=== PATIENT | male | born 1935 | race Caucasian/White ===

== ENCOUNTER → 2019-08-14 08:34 | Outpatient (BNVA) | payer MEDICARE, SELFPAY | PROVIDERS: Family Provider Family Medicine; PCP Family Medicine; Visit Provider Urology | DX: N39.0 Urinary tract infection, site not specified (principal); N40.1 Benign prostatic hyperplasia with lower urinary tract symptoms; N13.8 Other obstructive and reflux uropathy | CPT/HCPCS: 81001 ==

== ENCOUNTER 2020-01-23 08:05 | Outpatient (CLI) | payer MEDICARE, SELFPAY ==
--- NOTE | 2020-01-23 08:43 | XR_ITS ---
WS: [id number] Left hand, 2 views, 01/23/2020 Clinical Data: HAND PAIN, ARTHRITIS Comparison: None. Findings: No fractures or dislocations are seen. There is osteoarthritic change of the first MP joint, all the PIP and DIP joints. No periarticular demineralization is seen. 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
--- NOTE | 2020-01-23 08:43 | XR_ITS ---
WS: [id number] Right hand, 2 views, 01/23/2020 Clinical Data: HAND PAIN, ARTHRITIS Comparison: None. Findings: No fractures or dislocations are seen. Osteoarthritic change of the MP joints, PIP and DI P joints is seen. No bone destruction or erosion is noted. No periarticular demineralization is seen. XR/XR hand RT 2V [id number] Impression: Diffuse osteoarthritis of all the joints of the right hand.
== END 2020-01-23 08:06 | disposition home or self-care (01) ==
PROVIDERS: Family Provider Family Medicine; PCP Family Medicine; Visit Provider Family Medicine
DX: M79.641 Pain in right hand (principal); M19.042 Primary osteoarthritis, left hand; M19.041 Primary osteoarthritis, right hand
CPT/HCPCS: 73120

== ENCOUNTER → 2020-01-31 13:43 | Outpatient (BNVA) | payer MEDICARE, SELFPAY | PROVIDERS: Family Provider Family Medicine; PCP Family Medicine; Referring Provider Family Medicine; Visit Provider Specialist | DX: G56.03 Carpal tunnel syndrome, bilateral upper limbs (principal); G56.23 Lesion of ulnar nerve, bilateral upper limbs | CPT/HCPCS: 95910 ==

== ENCOUNTER → 2020-02-12 08:57 | Outpatient (BNVA) | payer MEDICARE, SELFPAY | PROVIDERS: Family Provider Family Medicine; PCP Family Medicine; Visit Provider Nurse Practitioner Family | DX: N40.1 Benign prostatic hyperplasia with lower urinary tract symptoms (principal); N13.8 Other obstructive and reflux uropathy; N39.0 Urinary tract infection, site not specified | CPT/HCPCS: 81001 ==

== ENCOUNTER 2020-04-02 13:36 | Inpatient (IN) | payer MEDICARE, SELFPAY ==
[2020-04-02 13:47] VITALS: BP 116/66; PULSE 80; RESP 16; TEMP 36.8; O2SAT 95; BMI 31.6
--- NOTE | 2020-04-02 15:24 | XRR_ITS ---
PROCEDURE INFORMATION: Exam: XR Chest, 1 View Exam date and time: 04/02/2020 3:44 PM Age: 84 years old Clinical indication: Cough and dyspnea; Additional info: Dyspnea/cough TECHNIQUE: Imaging protocol: XR of the chest Views: 1 view. COMPARISON: CR Chest 1 [place] [id number] 06/27/2018 3:49 PM FINDINGS: Lungs: There is chronic lung change. No consolidation. Pleural space: Unremarkable. No pleural effusion. No pneumothorax. Heart/Mediastinum: Unremarkable. No cardiomegaly. Bones/joints: Unremarkable. XR/XR chest 1V portable [id number] IMPRESSION: No acute findings.
--- NOTE | 2020-04-02 15:24 | ECG_ITS ---
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 Measurements Intervals [place] Rate: 76 P: 26 ND: 214 QRS: -21 QRSD: 97 T: -3 QT: 383 QTc: 431 Interpretive Statements SINUS RHYTHM WITH FIRST DEGREE AV BLOCK POSSIBLE ANTERIOR MYOCARDIAL INFARCTION , OF INDETERMINATE AGE [30 ms Q WAVE IN V3/V4, OR R < 0.2 mV IN V4] INFERIOR MYOCARDIAL INFARCTION , PROBABLY OLD [40+ ms Q WAVE AND/OR ST/T ABNORMALITY IN II/aVF] Compared to ECG 06/27/2018 21:53:31 First degree AV block now present Myocardial infarct finding now present Left-axis deviation no longer present T-wave abnormality no longer present Electronically Signed On 04-02-2020 18:33:47 CDT by Nohmey Corbett M.D. [id number]
--- NOTE | 2020-04-02 15:24 | US_ITS ---
WS: [id number] SCROTAL ULTRASOUND EXAMINATION CLINICAL INFORMATION: Swollen right testicle COMPARISON: FINDINGS: TESTES Heterogeneous striated echogenicity both testicles with increased vascularity RIGHT testicle compatib le with orchitis. Diffuse heterogeneous echotexture left testicle may be due to chronic orchitis with areas of infarct or possibly infiltrating neoplasm or lymphoma. Recommend interval follow-up after treatment. Enlarged edematous LEFT epididymis consistent with epididymitis. Recommend interval follow-up after t reatment. Right epididymis appears normal. Incidental 5 mm left tunica albuginea cyst Right testes size: 5.6 cm x 3.6 cm x 3.7 cm. Left testes size: 4.5 cm x 3.0 cm x 2.6 cm. EPIDIDYMIDES Normal in size and echotexture, without focal lesion. Color Doppler: Normal color Doppler flow pattern. Right epididymis size: 0.7 cm x cm x 1.1 cm. Left epididymitis size: 0.6 cm x cm x 1.0 cm. HYDROCELE Moderate right hydrocele with septations. VARICOCELE None. OTHER FINDINGS None. US/US scrotum [id number] IMPRESSION: 1. Diffuse heterogeneous echotexture both testicles with increased vascularity RIGHT testicle only. compatible with orchitis. Recommend interval follow-up af ter treatment to assess testicular echotexture 2. Diffuse prominent heterogeneous echotexture left testicle with normal vascu larity. Differential considerations include chronic orchitis with areas of infa rct versus infiltrating neoplasm or lymphoma. Recommend interval follow-up afte r treatment 3. Enlarged edematous LEFT epididymis compatible with epididymitis. 4. Moderate RIGHT hydrocele with septations. .
--- NOTE | 2020-04-02 15:48 | W.ED.WEAKNES ---
HPI - Weakness General: Chief complaint: Weakness Stated complaint: GENERAL WEAKNESS, SWOLLEN R TESTICLE Time Seen by Provider: 04/02/20 15:20 History of Present Illness: HPI Narrative: 84-year-old male comes in complaining of generalized weakness along with swollen right testicle. Last night he very weak he could not get out of bed he had a panic alarm he had his son came and helped him this morning when I came back he was in bed had not gotten out had lost control of his urine in bed. He is actually scheduled for carpal tunnel surgery in 2 days here at [facility] [place]. Son denies any fever sweats chills not had any cough or chest pain or abdominal pain his only complaint seems to be the testicular pain. MD Complaint: generalized weakness Onset (ago): day(s) Duration: constant Location: generalized Migration: none Severity: severe Quality: aching Relieving factors: none Exacerbating factors: none Associated symptoms: Reports confusion, decreased appetite, myalgias and nausea; Denies chest pain, chills, melena, diaphoresis, dysuria, easy bruising, fever(s), headache(s), rash, short of breath, syncope or vomiting Review of Systems Const: Denies: fever(s), chills or diaphoresis ENMT: Denies: throat pain, ear or mastoid pain, nasal discharge or nasal congestion Card: Denies: chest pain or syncope Resp: Denies: dyspnea, productive cough or non-productive cough GI: Reports: nausea; Denies: vomiting or melena : Denies: dysuria Skin/Breast: Denies: rash or pruritus Neuro: Reports: confusion; Denies: headache(s) Sagar/Lymph: Denies: easy bruising PFSH ED PFSH: Medical History Bilateral carpal tunnel syndrome BPH with obstruction/lower urinary tract symptoms Diabetes mellitus Essential tremor Hypertension PAD (peripheral artery disease) Recurrent UTI 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 Mother , IN HER 90'S Dementia ALZHEIMERS Social History Smoking and tobacco status: former smoker Alcohol intake: former Substance/Drug Use: never Lives independently: Yes Housing: House Marital status: / Current occupational status: retired Physical Exam Const: COMMON NORMALS: no acute distress GENERAL APPEARANCE: cooperative and comfortable ORIENTATION/CONSCIOUSNESS: Yes awake, Yes oriented to person, Yes oriented to place and Yes oriented to time HENMT: COMMON NORMALS: normocephalic, atraumatic and hearing grossly normal bilaterally HEAD & SCALP: normocephalic and atraumatic Eye: COMMON NORMALS: Equal, round and reactive pupils present, EOMs intact bilaterally, conjunctivae normal and no scleral icterus CONJUNCTIVA: Yes conjunctivae normal PUPIL: Yes Equal, round and reactive pupils present Neck/C-Spine: COMMON NORMALS: full ROM, no lymphadenopathy, supple and no JVD Lymph: LYMPHATIC: no lymphadenopathy noted and no lymphedema noted Resp: COMMON NORMALS: normal respiratory effort, No retractions, No use of accessory muscles and clear to auscultation bilaterally AUSCULTATION: clear to auscultation bilaterally Cardio: COMMON NORMALS: no JVD, regular rate, regular rhythm and No murmurs present (Cardio) RATE: regular rate RHYTHM: regular rhythm GI: COMMON NORMALS: Soft to palpation and No hepatosplenomegaly present AUSCULTATION: Yes normoactive bowel sounds PALPATION: Yes Soft to palpation, No Tenderness to palpation present (GI), No Guarding due to palpation present (GI) and Yes No hepatosplenomegaly present : SCROTUM: Yes Scrotal tenderness present, Yes erythematous, Yes scrotal swelling, No Scrotal lesions present and No scrotal mass Extremity: COMMON NORMALS: normal to inspection, capillary refill normal, no clubbing, cyanosis or edema, no calf tenderness and no pedal edema Neuro: SENSORIUM/ORIENTATION: Yes oriented to person, Yes oriented to place and Yes oriented to time Skin: COMMON NORMALS: no rashes or lesions noted GENERAL SKIN EXAM: no rashes or lesions noted Course Vital Signs: Vital signs: Vital Signs Temperature 98.2 F 04/06/20 11:29 Pulse Rate 75 04/06/20 11:29 Respiratory Rate 17 04/06/20 11:29 Blood Pressure 129/69 04/06/20 11:29 Pulse Oximetry 96 04/06/20 11:29 MDM - Weakness MDM Narrative: Medical decision making narrative: Discussed with Dr. Sandoval will admit for cellulitis of the scrotum, epididymitis and acute cystitis Dr. Woodson to consult Lab Data: Labs: Lab Results 04/02/20 04/02/20 04/02/20 Range/Units 16:02 16:02 16:02 WBC 16.8 H (4.0-10.0) 10^3/ uL RBC 4.71 (4.1-5.3) 10^6/u L Hgb 13.4 (11.7-16.6) g/dL Hct 41.8 L (42.0-52.0) % MCV 88.7 (80-94) fL MCH 28.5 (28.0-34.0) pg MCHC 32.1 (30.0-36.0) g/dL RDW 13.5 (12.1-15.1) % Plt Count 127 L (130-400) 10^3/c mm MPV 11.7 H (7.4-10.4) fL Neut % (Auto) 84.6 % Lymph % (Auto) 5.2 % Graves % (Auto) 9.3 % Eos % (Auto) 0.0 % Baso % (Auto) 0.4 % Neut # (Auto) 14.24 H (1.8-7.7) 10^3/u L Lymph # (Auto) 0.9 (0.8-4.8) 10^3/u L Graves # (Auto) 1.6 H (0.2-0.9) 10^3/u L Eos # (Auto) 0.0 (0.0-0.8) 10^3/u L Baso # (Auto) 0.1 (0.0-0.1) 10^3/u L Nucleated RBC % (a uto) 0 % Nucleated RBCs # 0.0 /100WBC Sodium 135 L (136-145) mmol/L Potassium 4.1 (3.5-5.1) mmol/L Chloride 97 L (98-107) mmol/L Carbon Dioxide 24 (22-29) mmol/L Anion Gap 18.1 (5-19) BUN 23 (8-23) mg/dL Creatinine 1.3 H (0.7-1.2) mg/dL GFR Calculation Not Reportable Glucose 220 H (65-115) mg/dL Estimat Average Gl ucose 146 Hemoglobin A1c 6.7 H (4.0-6.0) % Calculated Osmolal ity 290 (285-295) mOsm/k g Calcium 9.3 (8.5-10.5) mg/dL Total Bilirubin 1.4 H (0.15-1.2) mg/dL AST 25 (0-40) U/L ALT 18 (0-41) U/L Alkaline Phosphata se 78 (40-130) IU/L Creatine Kinase 84 (39-308) U/L Total Protein 7.1 (6.6-8.7) g/dL Albumin 3.8 (3.5-5.2) g/dL Globulin 3.3 (1.3-4.6) g/dL Urine Color (Yellow) Urine Appearance (CLEAR) Urine pH (5-7) Ur Specific Gravit y (1.005-1.030) Urine Protein (Negative) Urine Glucose (UA) (Normal) Urine Ketones (Negative) Urine Blood (Negative) Urine Nitrate (Negative) Urine Bilirubin (Negative) Urine Urobilinogen (Negative) mg/dL Ur Leukocyte Christin ase (Negative) Urine RBC (0-2) /hpf Urine WBC (0-5) /hpf Ur Squamous Epith Cells (0-5) /hpf Amorphous Sediment Urine Bacteria (NONE) /hpf 04/02/20 04/03/20 04/03/20 Range/Units 17:39 04:57 04:57 WBC 12.4 H (4.0-10.0) 10^3/ uL RBC 4.35 (4.1-5.3) 10^6/u L Hgb 12.4 (11.7-16.6) g/dL Hct 39.2 L (42.0-52.0) % MCV 90.1 (80-94) fL MCH 28.5 (28.0-34.0) pg MCHC 31.6 (30.0-36.0) g/dL RDW 14.0 (12.1-15.1) % Plt Count 109 L (130-400) 10^3/c mm MPV 12.9 H (7.4-10.4) fL Neut % (Auto) 81.5 % Lymph % (Auto) 7.6 % Graves % (Auto) 10.0 % Eos % (Auto) 0.2 % Baso % (Auto) 0.3 % Neut # (Auto) 10.12 H (1.8-7.7) 10^3/u L Lymph # (Auto) 1.0 (0.8-4.8) 10^3/u L Graves # (Auto) 1.2 H (0.2-0.9) 10^3/u L Eos # (Auto) 0.0 (0.0-0.8) 10^3/u L Baso # (Auto) 0.0 (0.0-0.1) 10^3/u L Nucleated RBC % (a uto) 0 % Nucleated RBCs # 0.0 /100WBC Sodium 137 (136-145) mmol/L Potassium 4.2 (3.5-5.1) mmol/L Chloride 100 (98-107) mmol/L Carbon Dioxide 27 (22-29) mmol/L Anion Gap 14.2 (5-19) BUN 33 H (8-23) mg/dL Creatinine 1.2 (0.7-1.2) mg/dL GFR Calculation Not Reportable Glucose 138 H (65-115) mg/dL Estimat Average Gl ucose Hemoglobin A1c (4.0-6.0) % Calculated Osmolal ity 293 (285-295) mOsm/k g Calcium 8.5 (8.5-10.5) mg/dL Total Bilirubin (0.15-1.2) mg/dL AST (0-40) U/L ALT (0-41) U/L Alkaline Phosphata se (40-130) IU/L Creatine Kinase (39-308) U/L Total Protein (6.6-8.7) g/dL Albumin (3.5-5.2) g/dL Globulin (1.3-4.6) g/dL Urine Color Yellow (Yellow) Urine Appearance Sl hazy (CLEAR) Urine pH 5 (5-7) Ur Specific Gravit y 1.015 (1.005-1.030) Urine Protein 2+ H (Negative) Urine Glucose (UA) Norm (Normal) Urine Ketones 1+ H (Negative) Urine Blood Neg (Negative) Urine Nitrate Negative (Negative) Urine Bilirubin Neg (Negative) Urine Urobilinogen Norm (Negative) mg/dL Ur Leukocyte Christin ase Negative (Negative) Urine RBC 0-4 H (0-2) /hpf Urine WBC 15-25 H (0-5) /hpf Ur Squamous Epith Cells 0-4 H (0-5) /hpf Amorphous Sediment Not Reportable Urine Bacteria 4+ H (NONE) /hpf Discharge Plan Discharge Patient Disposition: Admitted As Inpatient Admit Provider: Edwin Sandoval Clinical Impression: Cellulitis of scrotum, Acute epididymitis, Cystitis Condition: Stable Referrals: Carlos Marques MD [Primary Care Provider] - Discharge Date/Time: 04/02/20 20:39 Coding Level of Care Code 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
[2020-04-02 16:07] LABS: Basophils # 0.1 10^3/uL (0.0-0.1); Basophils % 0.4 %; Hematocrit 41.8 % (42.0-52.0); Hemoglobin 13.4 g/dL (11.7-16.6); Lymphocytes # 0.9 10^3/uL (0.8-4.8); Lymphocytes % 5.2 %; Mean Corpuscular HGB Conc 32.1 g/dL (30.0-36.0); Mean Corpuscular Hemoglobin 28.5 pg (28.0-34.0); Mean Corpuscular Volume 88.7 fL (80-94); Mean Platelet Volume 11.7 fL (7.4-10.4); Monocytes # 1.6 10^3/uL (0.2-0.9); Monocytes % 9.3 %; Neutrophils # 14.24 10^3/uL (1.8-7.7); Neutrophils % 84.6 %; Nucleated Red Blood Cells % 0 %; Platelet Count 127 10^3/cmm (130-400); Red Blood Count 4.71 10^6/uL (4.1-5.3); Red Cell Distribution Width 13.5 % (12.1-15.1); White Blood Count 16.8 10^3/uL (4.0-10.0)
[2020-04-02 16:32] LABS: Alanine Aminotransferase 18 U/L (0-41); Albumin Level 3.8 g/dL (3.5-5.2); Alkaline Phosphatase 78 IU/L (40-130); Anion Gap 18.1 (5-19); Aspartate Amino Transferase 25 U/L (0-40); Blood Urea Nitrogen 23 mg/dL (8-23); Calcium 9.3 mg/dL (8.5-10.5); Carbon Dioxide 24 mmol/L (22-29); Chloride 97 mmol/L (98-107); Creatine Phosphokinase 84 U/L (39-308); Globulin 3.3 g/dL (1.3-4.6); Glucose 220 mg/dL (65-115); Osmolality Calculated 290 mOsm/kg (285-295); Potassium 4.1 mmol/L (3.5-5.1); Sodium 135 mmol/L (136-145); Total Bilirubin 1.4 mg/dL (0.15-1.2); Total Protein 7.1 g/dL (6.6-8.7)
[2020-04-02] MEDS: cefTRIAXone 1,000 MG in sodium chloride 0.9% (plus) 50 ML 100 MG IV (17:23)
[2020-04-02 18:01] LABS: Add Urine Microscopic? YES; Bilirubin Urine Neg (Negative); Blood Urine Neg (Negative); Glucose Urine UA Norm (Normal); Ketones Urine 1+ (Negative); Leukocyte Esterase Urine Negative (Negative); Nitrate Urine Negative (Negative); Protein Urine 2+ (Negative); Specific Gravity, Urine 1.015 (1.005-1.030); Urine Appearance SL Hazy (CLEAR); Urine Color Yellow (Yellow); Urobilinogen Urine Norm (Negative); pH Urine 5 (5-7)
[2020-04-02 18:06] LABS: Add Urine Culture? Yes; Bacteria Urine 4+ /hpf; RBC Urine 0-4 /hpf (0-2); Squamous Epithelial Cell Urine 0-4 /hpf (0-5); WBC Urine 15-25 /hpf (0-5)
[2020-04-02 19:37] VITALS: BP 145/88; PULSE 66; RESP 18; O2SAT 96
--- NOTE | 2020-04-02 19:47 | PM.HP ---
Providers/Chief Complaint Admitting Physician: Edwin Sandoval MD Primary Care Provider: Carlos Marques MD Chief Complaint: GENERAL WEAKNESS, SWOLLEN R TESTICLE History of Present Illness Arias Karimi is a 84 year old male who carries history of BPH, came in today for generalized weakness and a recent fall. Son is at the bedside who is stating that Mr. Karimi lives alone, he suffers from essential tremors, manages his daily activities on his own, he has been initiated on propanolol, follows up with Dr. Woodson for BPH, requires antibiotics not so long ago, he is not sure about the name of the antibiotic and the duration for which it was taken. Mr. Karimi has been feeling weak for last few days which has gotten worse today, he had no strength to get out of bed and do his daily activities independently, no fever, vomiting was noticed at home. Patient is endorsing constipation, swelling of his testicles, pain 6/10 which gets worse on palpation, he has not been experiencing, dysuria, urinary frequency, chills. He is denying flank pain, radiation of this pain towards his groin. Son is endorsing that a few days ago Mr. Karimi fell outside his home without any trauma, son is aware of high risk of falls because of essential tremors. No syncope or seizure-like activity was noticed. Diagnosis in the ER revealed normal hemodynamics, he is afebrile, leukocytosis, testicle ultrasound ruled out testicular torsion, findings consistent with hydrocele and epididymitis. He has been given ceftriaxone in the ER. At the time of my evaluation patient was experiencing essential tremors but was able to endorse above-mentioned details, negative meningeal signs, testicles tender to palpation, he was awake alert oriented x3 GCS 15, patient is denying strokelike symptoms, no facial asymmetry noticed Review of Systems Const: Reports: chills, body aches, fatigue and malaise; Denies: fever(s) Eyes: Denies: change in vision ENMT: Denies: throat pain Card: Denies: chest pain Resp: Denies: dyspnea GI: Reports: abdominal pain, constipation and bloating; Denies: nausea : Reports: testicular pain; Denies: flank pain, genital pain, genital lesions or penile discharge Musc: Reports: neck pain, limited range of motion, muscle cramps and muscle weakness Skin/Breast: Reports: new lesions Neuro: Reports: lack of coordination, frequent falls and other (Tremors) Psych: Reports: memory loss; Denies: anxiety Endo: Denies: polyuria Sagar/Lymph: Denies: easy bruising All/Imm: Denies: urticaria Medications/Allergies Home Medications Medication Instructions Recorded Confirmed Last Taken Type ascorbic acid (vitamin C) 500 mg 500 mg PO DAILY 08/14/19 04/02/20 04/02/20 History capsule aspirin 81 mg tablet,delayed 81 mg PO DAILY 08/14/19 04/02/20 04/02/20 History release clonazepam 0.5 mg tablet 0.5 mg PO TID 08/14/19 04/02/20 04/02/20 History glimepiride 4 mg tablet 4 mg PO DAILY 08/14/19 04/02/20 04/02/20 History propranolol 80 mg capsule,24 80 mg PO DAILY 08/14/19 04/02/20 04/02/20 History hr,extended release amlodipine 5 mg tablet 5 mg PO DAILY 30 Days #90 tab 08/24/19 04/02/20 Unknown Rx furosemide 20 mg tablet 20 mg PO DAILY PRN #30 tab 12/20/19 04/02/20 04/02/20 Rx potassium chloride 10 mEq 10 meq PO DAILY PRN #30 tab 12/20/19 04/02/20 04/02/20 Rx tablet,extended release methenamine hippurate 1 gram tablet 1 gm PO BID #60 tab 12/28/19 04/02/20 04/02/20 Rx Allergies Allergy/AdvReac Type Severity Reaction Status Date / Time hydrochlorothiazide Allergy UNKNOWN Verified 03/12/20 13:47 iodine Allergy UNKNOWN Verified 03/12/20 13:47 lisinopril Allergy UNKNOWN Verified 03/12/20 13:47 PFSH Acute PFSH: Medical History (Updated 04/02/20 @ 20:32 by Maris Kenyon MD) Bilateral carpal tunnel syndrome BPH with obstruction/lower urinary tract symptoms Essential tremor Hypertension PAD (peripheral artery disease) Recurrent UTI 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 Mother , IN HER 90'S Dementia ALZHEIMERS Social History (Updated 04/02/20 @ 20:33 by Maris Kenyon MD) Smoking and tobacco status: former smoker Alcohol intake: former Substance/Drug Use: never Lives independently: Yes Housing: House Marital status: / Current occupational status: retired Vitals/I&O/Wt Last Vital Signs Temp 98.3 F 04/02/20 13:47 Pulse 66 04/02/20 19:37 Resp 18 04/02/20 19:37 BP 145/88 04/02/20 19:37 Pulse Ox 96 04/02/20 19:37 04/02/20 04/02/20 04/02/20 06:59 14:59 22:59 Intake Total 50 / 50 Balance 50 / 50 Weight last 48 hrs Weight 108.862 kg Physical Exam Narrative: EXAM NARRATIVE: elderly male Lying comfortably in his bed Essential tremors noted S1, S2, systolic murmur right second intercostal space Meningeal signs negative, No facial asymmetry Facial flushing noticed Handgrip is weak bilaterally, carpal tunnel features Abdomen distended, bowel sound present, nontender Genital exam: Hyperemia of the testicles bilaterally, tender to palpation, no discharge noticed, nonpurulent hyperemia of scrotal wall, hydrocele No lower extremity edema gangrene or ulcer Lung auscultation, clear no adventitious sounds No neurological focal deficit Patient is awake alert oriented x3 GCS 15 Patient is complaining of neck pain, negative Kernig's sign Data : 04/02/20 16:02 04/02/20 16:02 A&P Assessment and plan (1) Acute epididymitis: Status: Acute Additional A&P Information Acute epididymitis Most likely due to history of recurrent UTI and BPH Would cover for E. coli with ceftriaxone for now, will need 10 to 14-day course of antibiotics on discharge No active sepsis I would keep him on normal saline just for tonight discontine in the morning Scrotal ultrasound rule out testicular torsion or varicocele Ultrasound reviewed Patient is afebrile Would recommend close follow-up with Dr. Woodson History of BPH I would avoid urethral instrumentation for now We will do bladder scan PRN and straight cath if needed Essential tremors: I would continue propanolol and Ativan for now Mild hyponatremia Monitor sodium level Hold diuretics for now NAOMI Patient clinically looks dehydrated, I have started him on normal saline maintenance rate Monitor BMP Monitor urine output Will obtain renal ultrasound to rule out hydronephrosis Hyperglycemia , Will check A1c level DNR/DNI discussed with the patient and his son Cardiac diet DVT prophylaxis Heparin Physical therapy evaluate Attestations Medical Necessity Statement*: I am anticipating patient will be discharged in less than 48 hours currently need antibiotics for epididymitis, he is not septic, need physical therapy evaluation in the morning Time Spent in Patient Care: (>than 50% of time spent in counselling and/or direct pt care on unit). 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
[2020-04-02 19:59] VITALS: BP 127/54; PULSE 72; RESP 18; O2SAT 96
[2020-04-02 21:16] LABS: Estmated Average Glucose 146; Hemoglobin A1C 6.7 % (4.0-6.0)
[2020-04-02] MEDS: heparin 5,000 unit/mL INJ 1 mL 5000 UNIT SUBCUT (21:42)
[2020-04-02] MEDS: sodium chloride 0.9% 1,000 ML 100 ML IV (21:42)
[2020-04-02] MEDS: CLONazepam 0.5 mg Tablet PO (21:42)
[2020-04-02] MEDS: ketorolac 30 mg/mL INJ 15 MG IVP (21:43)
[2020-04-02 22:30] VITALS: BP 120/66; PULSE 62; RESP 20; TEMP 37.4; O2SAT 93
[2020-04-03] VITALS: BP 111/54; PULSE 67; RESP 19; TEMP 36.7; O2SAT 93
[2020-04-03 04:00] VITALS: BP 114/60; PULSE 80; RESP 18; TEMP 37; O2SAT 94
[2020-04-03 05:40] LABS: Basophils % 0.3 %; Eosinophils % 0.2 %; Hematocrit 39.2 % (42.0-52.0); Hemoglobin 12.4 g/dL (11.7-16.6); Lymphocytes % 7.6 %; Mean Corpuscular HGB Conc 31.6 g/dL (30.0-36.0); Mean Corpuscular Hemoglobin 28.5 pg (28.0-34.0); Mean Corpuscular Volume 90.1 fL (80-94); Mean Platelet Volume 12.9 fL (7.4-10.4); Monocytes # 1.2 10^3/uL (0.2-0.9); Neutrophils # 10.12 10^3/uL (1.8-7.7); Neutrophils % 81.5 %; Nucleated Red Blood Cells % 0 %; Platelet Count 109 10^3/cmm (130-400); Red Blood Count 4.35 10^6/uL (4.1-5.3); White Blood Count 12.4 10^3/uL (4.0-10.0)
[2020-04-03] MEDS: heparin 5,000 unit/mL INJ 1 mL 5000 UNIT SUBCUT ×3 (05:53→20:24)
[2020-04-03 06:11] LABS: Blood Urea Nitrogen 33 mg/dL (8-23); Calcium 8.5 mg/dL (8.5-10.5); Carbon Dioxide 27 mmol/L (22-29); Chloride 100 mmol/L (98-107); Glucose 138 mg/dL (65-115); Osmolality Calculated 293 mOsm/kg (285-295); Sodium 137 mmol/L (136-145)
[2020-04-03 06:13] LABS: Anion Gap 14.2 (5-19); Potassium 4.2 mmol/L (3.5-5.1)
--- NOTE | 2020-04-03 07:13 | P.PN_ITS ---
Subjective Subjective: Interval history: Patient feeling a little bit better but still having a lot of pain in his testicles. He is shaking quite a bit this morning. He did not get his propranolol last night it appears. Patient has no fevers or chills though. No chest pain. No shortness of breath or cough. Still very weak. He does have physical therapy ordered. Vitals/I&O/Wt Last Vital Signs Temp 98.6 F 04/03/20 04:00 Pulse 80 04/03/20 04:00 Resp 18 04/03/20 04:00 BP 114/60 04/03/20 04:00 Pulse Ox 94 04/03/20 04:00 04/02/20 04/03/20 04/03/20 22:59 06:59 14:59 Intake Total 50 / 50 Balance 50 / 50 Weight last 48 hrs Weight 240 lb Physical Exam 2 Narrative: EXAM NARRATIVE: General: No acute distress, Alert. Well nourished. Heart: Regular rate and rhythm. No murmurs, rubs or gallops. Normal capillary refill. Lungs: Clear to auscultation. No wheezes, rhonchi or rales. Abdomen: Positive bowel sounds. Non-tender, non-distended. No hepatosplenomegaly. No gaurding. Extremities: No clubbing, cyanosis, or edema. Negative Luis Felipe's Testicles -his scrotum is diffusely red and tender to touch. Mild swelling noted. Data : 04/03/20 04:57 04/03/20 04:57 A&P Assessment and plan (1) Acute epididymitis: -Patient's white blood cell count is improved with Rocephin but his tenderness and symptoms does not seem to have improved much. We will go ahead and consult urology for further evaluation and treatment recommendations. Appreciate Dr. Pérez's consultation. Status: Acute (2) Cellulitis of scrotum: Status: Acute (3) Hypertension: Stable at this time. We will continue with his home blood pressure medications and monitor. Status: Acute (4) BPH with obstruction/lower urinary tract symptoms: Status: Acute (5) Diabetes mellitus: Overall blood sugars are doing okay. We will continue to monitor Accu- Cheks. Status: Acute (6) Essential tremor: His shaking is worse this morning. We will increase his propranolol back to twice a day Status: Acute Attestations Medical Necessity Statement*: This is an 84-year-old gentleman with infection in his testicles and scrotum requiring continued inpatient IV treatments and monitoring. 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 Fwd Diagnoses Acute epididymitis N45.1 Cellulitis of scrotum N49.2 Hypertension I10 BPH with obstruction/lower urinary tract symptoms N40.1; N13.8 Diabetes mellitus E11.9 Essential tremor G25.0
--- NOTE | 2020-04-03 07:30 | P.CONIM_ITS ---
Providers/Reason For Consult Consulting Physican/Specialty*: Urology/Woodson Reason for Consult*: Scrotal pain and swelling Attending Physician: Edwin Sandoval MD Primary Care Provider: Carlos Marques MD History of Present Illness History of Present Illness Arias Karimi is a 84 year old male well-known to me. Admitted through the emergency department last night with evidence of epididymoorchitis right greater than sign left. I reviewed the ultrasound. It shows findings consistent with that diagnosis and no evidence of scrotal abscess or Nelson's gangrene. Physical exam also consistent with epididymoorchitis. No evidence of crepitus of the skin. No evidence of intrascrotal abscess. Since admission and placement on IV antibiotics (Rocephin) he has noted improvement in symptoms and decrease in swelling. Agree with current treatment plan. Culture is pending. Adjust antibiotics per culture results. Have also recommended elevation of the scrotum on 2 towels to help reduce swelling. Review of Systems Const: Reports: fever(s) and malaise Card: Denies: chest pain or palpitations Resp: Denies: dyspnea, productive cough or wheezing GI: Reports: abdominal pain; Denies: nausea, vomiting or diarrhea : Reports: testicular pain and scrotal swelling; Denies: change in urine stream Neuro: Reports: other (Increased Parkinson type tremors) Psych: Reports: anxiety Endo: Denies: hot flashes Sagar/Lymph: Denies: easy bruising or easy bleeding All/Imm: Denies: acute wheezing Meds/Allergies Home Medications and Allergies Home Medications Medication Instructions Recorded Confirmed Last Taken Type ascorbic acid (vitamin C) 500 mg 500 mg PO DAILY 08/14/19 04/02/20 04/02/20 History capsule aspirin 81 mg tablet,delayed 81 mg PO DAILY 08/14/19 04/02/20 04/02/20 History release clonazepam 0.5 mg tablet 0.5 mg PO TID 08/14/19 04/02/20 04/02/20 History glimepiride 4 mg tablet 4 mg PO DAILY 08/14/19 04/02/20 04/02/20 History propranolol 80 mg capsule,24 80 mg PO DAILY 08/14/19 04/02/20 04/02/20 History hr,extended release amlodipine 5 mg tablet 5 mg PO DAILY 30 Days #90 tab 08/24/19 04/02/20 Unknown Rx furosemide 20 mg tablet 20 mg PO DAILY PRN #30 tab 12/20/19 04/02/20 04/02/20 Rx potassium chloride 10 mEq 10 meq PO DAILY PRN #30 tab 12/20/19 04/02/20 04/02/20 Rx tablet,extended release methenamine hippurate 1 gram tablet 1 gm PO BID #60 tab 12/28/19 04/02/20 04/02/20 Rx Allergies Allergy/AdvReac Type Severity Reaction Status Date / Time hydrochlorothiazide Allergy UNKNOWN Verified 03/12/20 13:47 iodine Allergy UNKNOWN Verified 03/12/20 13:47 lisinopril Allergy UNKNOWN Verified 03/12/20 13:47 Current Medications Current Medications Generic Name Dose Route Start Last Admin Trade Name Freq PRN Reason Stop Dose Admin Clonazepam 0.5 mg 04/02/20 21:00 04/02/20 21:42 Klonopin PO 0.5 mg TID SHERYL Administration Heparin Sodium (Beef Lung) 5,000 unit 04/02/20 20:49 04/03/20 05:53 Heparin SUBCUT 5,000 unit Q8H SHERYL Administration Sodium Chloride 1,000 mls @ 100 mls/hr 04/02/20 20:49 04/02/20 21:42 Sodium Chloride 0.9% IV 100 mls/hr .Q10H SHERYL Administration PFSH Acute PFSH: Medical History Bilateral carpal tunnel syndrome BPH with obstruction/lower urinary tract symptoms Diabetes mellitus Essential tremor Hypertension PAD (peripheral artery disease) Recurrent UTI 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 Mother , IN HER 90'S Dementia ALZHEIMERS Social History Smoking and tobacco status: former smoker Alcohol intake: former Substance/Drug Use: never Lives independently: Yes Housing: House Marital status: / Current occupational status: retired Vitals/I&O/Wt Last Vital Signs Temp 98.6 F 04/03/20 04:00 Pulse 80 04/03/20 04:00 Resp 18 04/03/20 04:00 BP 114/60 04/03/20 04:00 Pulse Ox 94 04/03/20 04:00 04/02/20 04/03/20 04/03/20 22:59 06:59 14:59 Intake Total 50 / 50 Output Total 350 / 350 Balance 50 / 50 -350 / -350 Weight last 48 hrs Weight 240 lb Physical Exam Const: COMMON NORMALS: no acute distress, alert and well nourished GENERAL APPEARANCE: well kempt and well developed HENMT: COMMON NORMALS: normocephalic and atraumatic HEAD & SCALP: normocephalic and atraumatic Neck/C-Spine: COMMON NORMALS: full ROM GENERAL: Yes normal visual inspection Resp: COMMON NORMALS: normal respiratory effort EFFORT & INSPECTION: No labored and No Actively coughing : OTHER: Uncircumcised phallus. Scrotum is erythematous with mild swelling of the skin but not severe. No evidence of crepitus or other skin changes. Left intrascrotal contents appear to be more benign and feeling. The right side appears to be consistent with epididymoorchitis with induration of the testicle and the epididymis on the right side extending into the distal spermatic cord. No evidence of an abscess. Neuro: SENSORIUM/ORIENTATION: Yes alert Psych: COMMON NORMALS: mental status grossly normal APPEARANCE: Yes grossly normal and Yes well kempt ATTITUDE: Yes calm and Yes engaged A&P Assessment and plan (1) Epididymo-orchitis: Antibiotics Elevation Serial labs No indication for surgical intervention at this time. We will follow Status: Acute (2) Recurrent UTI: Status: Acute Consult Attestations Medical Necessity Statement: See attending Coding Level of Care Code Acute Suture Polisher for g Fwd Exam Detailed Diagnoses Epididymo-orchitis N45.3 Recurrent UTI N39.0
[2020-04-03 08:00] VITALS: BP 142/77; PULSE 89; RESP 18; TEMP 37.1; O2SAT 91
[2020-04-03] MEDS: sodium chloride 0.9% 1,000 ML 100 ML IV ×2 (08:37→15:16)
[2020-04-03] MEDS: aspirin 81 mg EC Tablet PO (08:37)
[2020-04-03] MEDS: sennosides-docusate Tablet 1 TAB PO ×2 (08:37→17:33)
[2020-04-03] MEDS: amlodipine 5 mg Tablet PO (08:37)
[2020-04-03] MEDS: propranolol 40 mg Tablet 80 MG PO ×2 (08:37→17:33)
[2020-04-03] MEDS: CLONazepam 0.5 mg Tablet PO ×3 (08:37→21:31)
[2020-04-03] MEDS: polyethylene glycol 3350 Pkt 17 gm PO (08:38)
[2020-04-03 10:57] VITALS: BP 142/76; PULSE 76; RESP 16; TEMP 37.1; O2SAT 95
[2020-04-03 10:57] LABS: Glucose Point of Care 195 mg/dL (70-110)
[2020-04-03 15:35] VITALS: BP 151/77; PULSE 68; RESP 18; TEMP 37.5; O2SAT 93
[2020-04-03] MEDS: cefTRIAXone 1,000 MG in sodium chloride 0.9% (plus) 50 ML 100 MG IV (17:37)
[2020-04-03 17:54] LABS: Glucose Point of Care 118 mg/dL (70-110)
[2020-04-03 20:00] VITALS: BP 151/77; PULSE 68; RESP 18; TEMP 37.5; O2SAT 93
[2020-04-03 21:09] LABS: Glucose Point of Care 157 mg/dL (70-110)
[2020-04-04] VITALS: BP 146/73; PULSE 67; RESP 18; TEMP 37.3; O2SAT 94
[2020-04-04] MEDS: sodium chloride 0.9% 1,000 ML 100 ML IV ×3 (03:41→23:49)
[2020-04-04 04:47] VITALS: BP 163/72; PULSE 126; RESP 19; TEMP 36.7; O2SAT 91
[2020-04-04] MEDS: heparin 5,000 unit/mL INJ 1 mL 5000 UNIT SUBCUT ×3 (05:27→20:43)
[2020-04-04 05:59] LABS: Basophils % 0.4 %; Eosinophils # 0.1 10^3/uL (0.0-0.8); Eosinophils % 1.8 %; Hematocrit 34.8 % (42.0-52.0); Hemoglobin 10.9 g/dL (11.7-16.6); Lymphocytes # 0.8 10^3/uL (0.8-4.8); Lymphocytes % 11.2 %; Mean Corpuscular HGB Conc 31.3 g/dL (30.0-36.0); Mean Corpuscular Hemoglobin 28.1 pg (28.0-34.0); Mean Corpuscular Volume 89.7 fL (80-94); Mean Platelet Volume 12.1 fL (7.4-10.4); Monocytes # 0.6 10^3/uL (0.2-0.9); Monocytes % 8.4 %; Neutrophils # 5.56 10^3/uL (1.8-7.7); Neutrophils % 78.1 %; Nucleated Red Blood Cells % 0 %; Platelet Count 119 10^3/cmm (130-400); Red Blood Count 3.88 10^6/uL (4.1-5.3); White Blood Count 7.1 10^3/uL (4.0-10.0)
[2020-04-04 06:32] LABS: Anion Gap 14.7 (5-19); Blood Urea Nitrogen 35 mg/dL (8-23); Calcium 8.2 mg/dL (8.5-10.5); Carbon Dioxide 23 mmol/L (22-29); Chloride 104 mmol/L (98-107); Glucose 98 mg/dL (65-115); Osmolality Calculated 294 mOsm/kg (285-295); Potassium 3.7 mmol/L (3.5-5.1); Sodium 138 mmol/L (136-145)
[2020-04-04 06:33] LABS: C Reactive Protein 176.8 mg/L (0.0-4.9)
[2020-04-04 07:39] LABS: Glucose Point of Care 98 mg/dL (70-110)
[2020-04-04 07:52] VITALS: BP 156/70; PULSE 112; RESP 20; TEMP 36.8; O2SAT 96
[2020-04-04] MEDS: levofloxacin-dextrose 5 % 500 MG/100 ML PREMIX 100 MG IV (08:30)
[2020-04-04] MEDS: amlodipine 5 mg Tablet PO (09:58)
[2020-04-04] MEDS: CLONazepam 0.5 mg Tablet PO ×3 (09:58→20:42)
[2020-04-04] MEDS: sennosides-docusate Tablet 1 TAB PO ×2 (09:58→18:01)
[2020-04-04] MEDS: aspirin 81 mg EC Tablet PO (09:58)
[2020-04-04] MEDS: propranolol 40 mg Tablet 80 MG PO ×2 (09:59→18:01)
[2020-04-04] MEDS: polyethylene glycol 3350 Pkt 17 gm PO (10:00)
--- NOTE | 2020-04-04 10:48 | PC.CHAP ---
Pastoral Care Encounter/Spiritual Assessment Type of Contact [] Declined cake puncher visit [] Patient/Family/Request visit [] Outpatient visit [] Follow-up visit [] Physician referral [] Code/Alert [x] Routine visit [] Staff referral [] Actively dying [] Patient sleeping [] Family support [] [] Out of room [] Palliative care [] [x] Receiving care in room [] Pre-surgical visit [] Trauma [] Long length of stay [] ICU visit [] Other: Relational/Emotional Strength [x] Patient feels connected with others/family/visitors/staff [] Distress [] Loneliness/isolation [] Abandonment Spirituality of Patient [x] Person of Yenifer [] Attends Yarsanism of their Yenifer [x] Believes in Prayer [] Reads Bible or Scientologist materials [] There are Spiritual issues to be addressed Cad Programmer Interventions [x] Prayer [x] Active listening [x] Non-anxious presence [x] Spiritual/emotional support [] Crisis/trauma care [x] Spiritual counseling [] Bereavement support [] Provided bereavement packet [] Provided Bible/devotional materials [] Provided toy/stuffed animal, coloring book to patient or family member [] Provided Communion [] Anointing/[employer] [] Salvation [x] Completed spiritual assessment [] Other: Impact on Illness or Injury [] Angry [] Fearful [x] Anxious [] Often cries [] Exhaustion [] Unable to work [] Unable to attend christian [] Unable to walk/stand [] Unable to read [] Unable to drive [] Unable to eat/drink [] Unable to sleep [] Unable to be with family [] Patient intubated [] Other: Summary Dealing with a Posate infection negative results changing procedures doesn't know the the out come yet, has a good attitude Time spent with patient 10 mins
[2020-04-04 10:56] LABS: Glucose Point of Care 159 mg/dL (70-110)
[2020-04-04 11:09] VITALS: BP 163/66; PULSE 70; RESP 22; TEMP 36.4; O2SAT 97
--- NOTE | 2020-04-04 15:17 | P.PN_ITS ---
Subjective Subjective: Interval history: Urology follow-up Still complains of significant scrotal pain and tenderness. Overall though he thinks it is somewhat better since he was admitted. Denies high fevers. No chills. No retention symptoms. White count has decreased to normal today. Physical exam shows persistent erythema. No fluctuance. Very tender. Urine culture is growing about 70,000 colony counts of gram-negative bacteria. Final identification and sensitivities pending. Reviewed old records in [facility] that showed 4 urine cultures dating back to 2018 growing ESBL E. coli. Resistance to ceftriaxone was demonstrated. Sensitivity to Carbapenems demonstrated. Will discuss with attending Vitals/I&O/Wt Last Vital Signs Temp 97.6 F 04/04/20 11:09 Pulse 70 04/04/20 11:09 Resp 22 H 04/04/20 11:09 BP 163/66 04/04/20 11:09 Pulse Ox 97 04/04/20 11:09 04/04/20 04/04/20 04/04/20 06:59 14:59 22:59 Intake Total 1000 / 3325 1600 / 1600 Balance 1000 / 2175 1600 / 1600 Physical Exam Const: COMMON NORMALS: no acute distress, alert and well nourished GENERAL APPEARANCE: well kempt and well developed ORIENTATION/CONSCIOUSNESS: not confused HENMT: COMMON NORMALS: normocephalic and atraumatic HEAD & SCALP: normocephalic and atraumatic Resp: COMMON NORMALS: normal respiratory effort EFFORT & INSPECTION: No labored and No Actively coughing : PENIS: Localized penile swelling present SCROTUM: Yes scrotal swelling TESTES: Yes testicular swelling, Yes testicular tenderness and Yes epididymal tenderness OTHER: Not a lot of change. Still very tender in the right hemiscrotum. No evidence of fluctuance or mass. Induration and tenderness of the right testicle and epididymis demonstrated. No crepitus. No skin eschar. Neuro: SENSORIUM/ORIENTATION: Yes alert Psych: COMMON NORMALS: mental status grossly normal APPEARANCE: Yes grossly normal and Yes well kempt ATTITUDE: Yes calm and Yes engaged Skin: COMMON NORMALS: no rashes or lesions noted and no jaundice GENERAL SKIN EXAM: no rashes or lesions noted Data : 04/04/20 05:27 04/04/20 05:27 Micro: Microbiology 04/02/20 17:39 Urine Culture - Preliminary Urine,Clean Catch Gram Negative Rods 04/04/20 07:45 Blood Culture - Preliminary Blood SPECIMEN COLLECTED 04/04/20 07:50 Blood Culture - Preliminary Blood SPECIMEN COLLECTED A&P Assessment and plan (1) Epididymo-orchitis: From a laboratory perspective that he appears to be doing better but there is a high risk of resistance based on prior cultures. We will consider a Carbapenem alternative. Status: Acute (2) Recurrent UTI: Status: Acute Coding Level of Care Code Acute Calender Machine Operator for [facility] Diagnoses Epididymo-orchitis N45.3 Recurrent UTI N39.0
[2020-04-04 15:50] VITALS: BP 140/72; PULSE 78; RESP 18; TEMP 36.4; O2SAT 95
--- NOTE | 2020-04-04 18:11 | PC.NURSE ---
Pt scrotum is still very red, swollen, and tender, pt states it has gotten better. This nurse has assisted pt to bathroom, he does well with just standby assist and using a walker.
[2020-04-04 18:38] LABS: Glucose Point of Care 143 mg/dL (70-110)
[2020-04-04 19:38] VITALS: BP 164/70; PULSE 69; RESP 16; TEMP 36.8; O2SAT 95
--- NOTE | 2020-04-04 19:48 | P.PN_ITS ---
Subjective Subjective: Interval history: Patient does not feel like he is doing much better today. Still having a lot of pain and swelling and redness in his scrotum. No fevers. His shaking seems to be better with restarting his propranolol. Vitals/I&O/Wt Last Vital Signs Temp 98.3 F 04/04/20 19:38 Pulse 69 04/04/20 19:38 Resp 16 04/04/20 19:38 BP 164/70 04/04/20 19:38 Pulse Ox 95 04/04/20 19:38 04/04/20 04/04/20 04/04/20 06:59 14:59 22:59 Intake Total 1000 / 3325 1600 / 1840 240 / 1840 Balance 1000 / 2175 1600 / 1840 240 / 1840 Physical Exam Narrative: EXAM NARRATIVE: General: No acute distress, Alert. Well nourished. Heart: Regular rate and rhythm. No murmurs, rubs or gallops. Normal capillary refill. Lungs: Clear to auscultation. No wheezes, rhonchi or rales. Abdomen: Positive bowel sounds. Non-tender, non-distended. No hepatosplenomegaly. No gaurding. Extremities: No clubbing, cyanosis, or edema. Negative Luis Felipe's Testicles -his scrotum is diffusely red and tender to touch. Mild swelling n oted. Data : 04/05/20 05:02 04/05/20 05:02 Micro: Microbiology 04/02/20 17:39 Urine Culture - Preliminary Urine,Clean Catch Gram Negative Rods 04/04/20 07:45 Blood Culture - Preliminary Blood SPECIMEN COLLECTED 04/04/20 07:50 Blood Culture - Preliminary Blood SPECIMEN COLLECTED A&P Assessment and plan (1) Acute epididymitis: -Patient's white blood cell count is improved with Rocephin but his tenderness and symptoms does not seem to have improved much. I would have expected more significant improvement clinically by now. We will go ahead and change to Levaquin and follow-up on urine cultures. Appreciate Dr. Woodson's consultation. Status: Acute (2) Cellulitis of scrotum: Status: Acute (3) Hypertension: Stable at this time. We will continue with his home blood pressure me dications and monitor. Status: Acute (4) BPH with obstruction/lower urinary tract symptoms: Status: Acute (5) Diabetes mellitus: Overall blood sugars are doing okay. We will continue to monitor Accu- Cheks. Status: Acute (6) Essential tremor: His shaking is improved with his increased dose of propranolol Status: Acute Attestations Medical Necessity Statement*: Patient is an 84-year-old gentleman with a scrotal infection requiring continued IV treatments. Coding Level of Care Code Acute Phlebotomy Technician for [facility] Joyced Diagnoses Acute epididymitis N45.1 Cellulitis of scrotum N49.2 Hypertension I10 BPH with obstruction/lower urinary tract symptoms N40.1; N13.8 Diabetes mellitus E11.9 Essential tremor G25.0
[2020-04-04 21:09] LABS: Glucose Point of Care 162 mg/dL (70-110)
[2020-04-05] VITALS (8 sets, daily range): BP systolic 128–163; BP diastolic 60–80; PULSE 65–84; RESP 16–22; TEMP 36.4–36.8; O2SAT 95–98
[2020-04-05] MEDS: heparin 5,000 unit/mL INJ 1 mL 5000 UNIT SUBCUT ×3 (04:46→20:47)
[2020-04-05 06:03] LABS: Basophils % 0.8 %; Eosinophils # 0.2 10^3/uL (0.0-0.8); Eosinophils % 4.1 %; Hematocrit 35.5 % (42.0-52.0); Hemoglobin 11.3 g/dL (11.7-16.6); Lymphocytes # 0.7 10^3/uL (0.8-4.8); Mean Corpuscular HGB Conc 31.8 g/dL (30.0-36.0); Mean Corpuscular Hemoglobin 28.6 pg (28.0-34.0); Mean Corpuscular Volume 89.9 fL (80-94); Mean Platelet Volume 12.8 fL (7.4-10.4); Monocytes # 0.5 10^3/uL (0.2-0.9); Monocytes % 9.4 %; Neutrophils # 3.46 10^3/uL (1.8-7.7); Neutrophils % 71.1 %; Nucleated Red Blood Cells % 0 %; Platelet Count 125 10^3/cmm (130-400); Red Blood Count 3.95 10^6/uL (4.1-5.3); Red Cell Distribution Width 13.7 % (12.1-15.1); White Blood Count 4.9 10^3/uL (4.0-10.0)
[2020-04-05 06:39] LABS: Anion Gap 13.8 (5-19); Blood Urea Nitrogen 24 mg/dL (8-23); Calcium 8.4 mg/dL (8.5-10.5); Carbon Dioxide 23 mmol/L (22-29); Chloride 102 mmol/L (98-107); Glucose 126 mg/dL (65-115); Osmolality Calculated 286 mOsm/kg (285-295); Potassium 3.8 mmol/L (3.5-5.1); Sodium 135 mmol/L (136-145)
[2020-04-05 06:40] LABS: C Reactive Protein 87.1 mg/L (0.0-4.9)
[2020-04-05 08:16] LABS: Glucose Point of Care 121 mg/dL (70-110)
[2020-04-05] MEDS: propranolol 40 mg Tablet 80 MG PO ×2 (08:33→17:36)
[2020-04-05] MEDS: aspirin 81 mg EC Tablet PO (08:33)
[2020-04-05] MEDS: CLONazepam 0.5 mg Tablet PO ×3 (08:33→20:47)
[2020-04-05] MEDS: polyethylene glycol 3350 Pkt 17 gm PO (08:33)
[2020-04-05] MEDS: amlodipine 5 mg Tablet PO (08:33)
[2020-04-05] MEDS: sennosides-docusate Tablet 1 TAB PO ×2 (08:33→17:36)
[2020-04-05] MEDS: sodium chloride 0.9% 1,000 ML 100 ML IV ×2 (08:36→20:46)
[2020-04-05 10:39] LABS: Glucose Point of Care 142 mg/dL (70-110)
--- NOTE | 2020-04-05 13:20 | P.PN_ITS ---
Subjective Subjective: Interval history: Patient overall still does not seem to be improving. He has been on Levaquin for [address] Woodson had reviewed old urine cultures which had revealed resistant organisms to ceftriaxone and to Levaquin. Clinically does not seem to be improving still. His pain redness and swelling seems to be relatively unchanged. Vitals/I&O/Wt Last Vital Signs Temp 97.6 F 04/05/20 08:00 Pulse 84 04/05/20 11:09 Resp 22 H 04/05/20 11:09 BP 162/60 04/05/20 11:09 Pulse Ox 96 04/05/20 11:09 04/04/20 04/05/20 04/05/20 22:59 06:59 14:59 Intake Total 240 / 3111.667 1271.667 / 3111.667 1458.333 / 1458.333 Balance 240 / 3111.667 1271.667 / 3111.667 1458.333 / 1458.333 Physical Exam Narrative: EXAM NARRATIVE: General: No acute distress, Alert. Well nourished. Heart: Regular rate and rhythm. No murmurs, rubs or gallops. Normal capillary refill. Lungs: Clear to auscultation. No wheezes, rhonchi or rales. Abdomen: Positive bowel sounds. Non-tender, non-distended. No hepatosplenomegaly. No gaurding. Extremities: No clubbing, cyanosis, or edema. Negative Luis Felipe's Testicles -his scrotum is diffusely red and tender to touch. Mild swelling noted. Data : 04/05/20 05:02 04/05/20 05:02 Micro: Microbiology 04/02/20 17:39 Urine Culture - Final Urine,Clean Catch Escherichia coli 04/04/20 07:45 Blood Culture - Preliminary Blood NEGATIVE TO DATE 04/04/20 07:50 Blood Culture - Preliminary Blood NEGATIVE TO DATE A&P Assessment and plan (1) Epididymo-orchitis: -Overall not much change in his clinical picture. His urine culture is growing out E. coli but sensitivities are still pending. Previous urine culture showed resistant organisms to Levaquin and Rocephin. We will go ahead and change to imipenem this morning since previous organisms have been sensitive to this. Repeat blood work tomorrow. Status: Acute (2) Acute epididymitis: -Overall not much change in his clinical picture. Status: Acute (3) Cellulitis of scrotum: Status: Acute (4) Hypertension: Stable at this time. We will continue with his home blood pressure medications and monitor. Status: Acute (5) BPH with obstruction/lower urinary tract symptoms: Status: Acute (6) Diabetes mellitus: Overall blood sugars are doing okay. We will continue to monitor Accu- Cheks. Status: Acute (7) Essential tremor: His shaking is improved with his increased dose of propranolol Status: Acute Attestations Medical Necessity Statement*: 84-year-old gentleman with infection requiring continued IV treatments in the inpatient setting. Coding Level of Care Code Acute Intensive Care Anaesthetist for [facility] Fwd Diagnoses Epididymo-orchitis N45.3 Acute epididymitis N45.1 Cellulitis of scrotum N49.2 Hypertension I10 BPH with obstruction/lower urinary tract symptoms N40.1; N13.8 Diabetes mellitus E11.9 Essential tremor G25.0
--- NOTE | 2020-04-05 15:15 | PM.PN ---
Subjective Subjective: Interval history: Urology follow-up: Imipenem day 1. Has noticed improvement already. Still pretty impressive exam but no evidence of fluctuance, skin breakdown etc. Still quite tender. White count further decreased today. No spiking temperatures. Medications: Reviewed: Yes Vitals/I&O/Wt Last Vital Signs Temp 97.6 F 04/05/20 08:00 Pulse 84 04/05/20 11:09 Resp 22 H 04/05/20 11:09 BP 162/60 04/05/20 11:09 Pulse Ox 96 04/05/20 11:09 04/05/20 04/05/20 04/05/20 06:59 14:59 22:59 Intake Total 1271.667 / 3111.667 1458.333 / 1458.333 Balance 1271.667 / 3111.667 1458.333 / 1458.333 Physical Exam Const: COMMON NORMALS: no acute distress and alert : OTHER: Persistence of erythema of the scrotum. Still significantly indurated of the testicle and epididymis consistent with epididymoorchitis. Somewhat less tenderness today. No evidence of fluctuance. I think overall there is some improvement on exam. Neuro: SENSORIUM/ORIENTATION: Yes alert OTHER: Marked tremor Psych: COMMON NORMALS: mental status grossly normal, Normal thought process present and cooperative ATTITUDE: Yes calm and Yes engaged THOUGHT PROCESS: Normal thought process present Data : 04/05/20 05:02 04/05/20 05:02 Micro: Microbiology 04/02/20 17:39 Urine Culture - Final Urine,Clean Catch Escherichia coli 04/04/20 07:45 Blood Culture - Preliminary Blood NEGATIVE TO DATE 04/04/20 07:50 Blood Culture - Preliminary Blood NEGATIVE TO DATE A&P Assessment and plan (1) Epididymo-orchitis: Status: Acute Attestations Medical Necessity Statement*: See attending Coding Level of Care Code Acute Animal Shelter Clerk for [facility] Diagnoses Epididymo-orchitis N45.3
[2020-04-05 16:42] LABS: Glucose Point of Care 164 mg/dL (70-110)
[2020-04-05] MEDS: magnesium hydroxide 30 mL UDC PO (17:36)
[2020-04-05 20:41] LABS: Glucose Point of Care 190 mg/dL (70-110)
[2020-04-06] VITALS (7 sets, daily range): BP systolic 129–177; BP diastolic 69–78; PULSE 64–75; RESP 17–20; TEMP 36.4–36.8; O2SAT 94–97
[2020-04-06 05:49] LABS: Eosinophils # 0.2 10^3/uL (0.0-0.8); Hemoglobin 11.4 g/dL (11.7-16.6); Lymphocytes # 0.5 10^3/uL (0.8-4.8); Mean Corpuscular HGB Conc 32.6 g/dL (30.0-36.0); Mean Corpuscular Hemoglobin 28.4 pg (28.0-34.0); Mean Corpuscular Volume 87.3 fL (80-94); Mean Platelet Volume 11.3 fL (7.4-10.4); Monocytes # 0.5 10^3/uL (0.2-0.9); Neutrophils % 67.5 %; Nucleated Red Blood Cells % 0 %; Platelet Count 135 10^3/cmm (130-400); Red Blood Count 4.01 10^6/uL (4.1-5.3); Red Cell Distribution Width 13.5 % (12.1-15.1)
[2020-04-06 06:06] LABS: C Reactive Protein 53.8 mg/L (0.0-4.9)
[2020-04-06] MEDS: sodium chloride 0.9% 1,000 ML 100 ML IV (06:10)
[2020-04-06] MEDS: heparin 5,000 unit/mL INJ 1 mL 5000 UNIT SUBCUT ×3 (06:10→20:44)
[2020-04-06] MEDS: CLONazepam 0.5 mg Tablet PO ×2 (08:56→16:04)
[2020-04-06] MEDS: sennosides-docusate Tablet 1 TAB PO ×2 (08:56→18:00)
[2020-04-06] MEDS: aspirin 81 mg EC Tablet PO (08:56)
[2020-04-06] MEDS: amlodipine 5 mg Tablet PO (08:56)
[2020-04-06] MEDS: propranolol 40 mg Tablet 80 MG PO ×2 (08:56→18:00)
--- NOTE | 2020-04-06 09:20 | PC.SOCIAL ---
IMM Page 2 of IMM explained to patient. Initialed, dated, and timed and placed in chart. Copy provided to patient.
[2020-04-06 10:55] LABS: Glucose Point of Care 178 mg/dL (70-110)
--- NOTE | 2020-04-06 13:17 | P.PN_ITS ---
Subjective Subjective: Interval history: No acute events overnight. Scrotal swelling is subsiding. No evidence of fluctuance or skin breakdown. though he is still complaining of pain in the scrotal area with minimal movement. No temperature spike.Leukocytosis has resolved. Patient has no difficulty passing urine. He is tolerating diet well. Vitals and labs have been reviewed. Medications: Reviewed: Yes Vitals/I&O/Wt Last Vital Signs Temp 98.2 F 04/06/20 11:29 Pulse 75 04/06/20 11:29 Resp 17 04/06/20 11:29 BP 129/69 04/06/20 11:29 Pulse Ox 96 04/06/20 11:29 04/05/20 04/06/20 04/06/20 22:59 06:59 14:59 Intake Total 1580 / 3138.333 1380 / 4518.333 600 / 600 Balance 1580 / 3138.333 1380 / 4518.333 600 / 600 Physical Exam HENMT: COMMON NORMALS: normocephalic and atraumatic HEAD & SCALP: normocephalic and atraumatic Eye: GENERAL EYE: appearance normal, both eyes and all related structures Chest: COMMONS NORMALS: normal inspection of the chest and normal palpation of entire chest wall CHEST: Yes Symmetrical chest wall rise Resp: COMMON NORMALS: normal respiratory effort, No retractions, No use of accessory muscles and clear to auscultation bilaterally EFFORT & INSPECTION: Yes symmetric chest movement AUSCULTATION: clear to auscultation bilaterally Cardio: COMMON NORMALS: regular rate, regular rhythm, S1 normal heart sound present, S2 normal heart sound present, No gallops present (Cardio), No murmurs present (Cardio), No rub (Cardio) and Peripheral pulses 2+ throughout RATE: regular rate RHYTHM: regular rhythm HEART SOUNDS: S1 normal heart sound present and S2 normal heart sound present PERIPHERAL PULSES: Peripheral pulses 2+ throughout GI: COMMON NORMALS: Normal to inspection, nondistended, normoactive bowel sounds present, Soft to palpation, non-tender, No hepatosplenomegaly present and no masses AUSCULTATION: Yes normoactive bowel sounds PALPATION: Yes Soft to palpation and Yes No hepatosplenomegaly present RECTAL EXAM: Yes deferred : MALE GROIN/PERINEUM EXAM: Yes other (Persistence of erythema of the scrotum. Still significantly indurated of t) Extremity: COMMON NORMALS: no clubbing, cyanosis or edema and no pedal edema Data : 04/06/20 05:25 04/05/20 05:02 Micro: Microbiology 04/02/20 17:39 Urine Culture - Final Urine,Clean Catch Escherichia coli A&P Assessment and plan (1) Acute epididymitis: Status: Acute Additional A&P Information Acute epididymitis Due to history of recurrent UTI and BPH Currently on IV imipenem for E. coli. Initially on ceftriaxone which was discontinued as per urology recommendation. No active sepsis Scrotal ultrasound ruled out testicular torsion or varicocele Patient is afebrile. History of BPH avoid urethral instrumentation for now We will do bladder scan PRN and straight cath if needed Essential tremors: continue propanolol and Ativan for now Mild hyponatremia ( Resolved ) Monitor sodium level NAOMI ( Resolved ) DNR/DNI Cardiac diet DVT prophylaxis Heparin Physical therapy evaluate Attestations Medical Necessity Statement*: He needs to be in hospital for the management of acute epididymitis. Coding Level of Care Code Acute Senior Marketing Analyst for 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 Diagnoses Acute epididymitis N45.1
[2020-04-06 16:50] LABS: Glucose Point of Care 174 mg/dL (70-110)
[2020-04-06 21:07] LABS: Glucose Point of Care 171 mg/dL (70-110)
[2020-04-07] MEDS: sodium chloride 0.9% 1,000 ML 100 ML IV ×2 (00:07→11:18)
[2020-04-07 04:00] VITALS: BP 158/74; PULSE 64; RESP 17; TEMP 36.9; O2SAT 95
[2020-04-07] MEDS: heparin 5,000 unit/mL INJ 1 mL 5000 UNIT SUBCUT ×3 (05:00→21:33)
[2020-04-07 06:59] LABS: Glucose Point of Care 140 mg/dL (70-110)
[2020-04-07 07:06] VITALS: BP 159/66; PULSE 65; RESP 16; TEMP 36.7; O2SAT 96
[2020-04-07] MEDS: amlodipine 5 mg Tablet PO (08:45)
[2020-04-07] MEDS: sennosides-docusate Tablet 1 TAB PO ×2 (08:45→17:08)
[2020-04-07] MEDS: aspirin 81 mg EC Tablet PO (08:46)
[2020-04-07] MEDS: polyethylene glycol 3350 Pkt 17 gm PO (08:46)
[2020-04-07] MEDS: propranolol 40 mg Tablet 80 MG PO ×2 (08:50→17:08)
[2020-04-07 10:37] LABS: Glucose Point of Care 172 mg/dL (70-110)
[2020-04-07 11:04] VITALS: BP 151/66; PULSE 65; RESP 17; TEMP 36.6; O2SAT 94
[2020-04-07 15:47] VITALS: BP 148/76; PULSE 66; RESP 20; TEMP 36.5; O2SAT 97
[2020-04-07 17:19] LABS: Glucose Point of Care 147 mg/dL (70-110)
--- NOTE | 2020-04-07 18:56 | P.PN_ITS ---
Subjective Subjective: Interval history: No acute events overnight. Scrotal swelling is subsiding. No evidence of fluctuance or skin breakdown. though he is still complaining of pain in the scrotal area with minimal movement. No temperature spike.Leukocytosis has resolved. Patient has no difficulty passing urine. He is tolerating diet well. Vitals and labs have been reviewed. Medications: Reviewed: Yes Vitals/I&O/Wt Last Vital Signs Temp 97.7 F 04/07/20 15:47 Pulse 66 04/07/20 15:47 Resp 20 H 04/07/20 15:47 BP 148/76 04/07/20 15:47 Pulse Ox 97 04/07/20 15:47 04/07/20 04/07/20 04/07/20 06:59 14:59 22:59 Intake Total 100 / 2140 1600 / 1600 240 / 1840 Balance 100 / 2140 1600 / 1600 240 / 1840 Physical Exam Const: COMMON NORMALS: patient oriented x3 HENMT: COMMON NORMALS: normocephalic and atraumatic HEAD & SCALP: normocephalic and atraumatic Eye: GENERAL EYE: appearance normal, both eyes and all related structures Chest: COMMONS NORMALS: normal inspection of the chest and normal palpation of entire chest wall CHEST: Yes Symmetrical chest wall rise Resp: COMMON NORMALS: normal respiratory effort, No retractions, No use of accessory muscles and clear to auscultation bilaterally EFFORT & INSPECTION: Yes symmetric chest movement AUSCULTATION: clear to auscultation bilaterally Cardio: COMMON NORMALS: regular rate, regular rhythm, S1 normal heart sound present, S2 normal heart sound present, No gallops present (Cardio), No murmurs present (Cardio), No rub (Cardio) and Peripheral pulses 2+ throughout RATE: regular rate RHYTHM: regular rhythm HEART SOUNDS: S1 normal heart sound present and S2 normal heart sound present PERIPHERAL PULSES: Peripheral pulses 2+ throughout GI: COMMON NORMALS: Normal to inspection, nondistended, normoactive bowel sounds present, Soft to palpation, non-tender, No hepatosplenomegaly present and no masses AUSCULTATION: Yes normoactive bowel sounds PALPATION: Yes Soft to palpation and Yes No hepatosplenomegaly present RECTAL EXAM: Yes deferred : MALE GROIN/PERINEUM EXAM: Yes other (Persistence of erythema of the scrotum. Still significantly indurated of t) Extremity: COMMON NORMALS: no clubbing, cyanosis or edema and no pedal edema Neuro: COMMON NORMALS: patient oriented x3 Data : 04/06/20 05:25 04/05/20 05:02 A&P Assessment and plan (1) Acute epididymitis: Status: Acute Additional A&P Information Acute epididymitis Due to history of recurrent UTI and BPH Currently on IV imipenem for E. coli. Initially on ceftriaxone which was discontinued as per urology recommendation. No active sepsis Scrotal ultrasound ruled out testicular torsion or varicocele Patient is afebrile. History of BPH avoid urethral instrumentation for now We will do bladder scan PRN and straight cath if needed Essential tremors: continue propanolol and Ativan for now Mild hyponatremia ( Resolved ) Monitor sodium level NAOMI ( Resolved ) DNR/DNI Cardiac diet DVT prophylaxis Heparin Physical therapy evaluate Attestations Medical Necessity Statement*: Patient needs to be in hospital for the management acute epididymitis Coding Level of Care Code Acute Counting Machine Operator for [facility] Diagnoses Acute epididymitis N45.1
[2020-04-07 19:45] VITALS: BP 174/68; PULSE 72; RESP 17; TEMP 36.7; O2SAT 95
[2020-04-07 20:36] LABS: Glucose Point of Care 236 mg/dL (70-110)
[2020-04-08] VITALS: BP 115/76; PULSE 64; RESP 17; TEMP 37.1; O2SAT 95
[2020-04-08 04:00] VITALS: BP 164/72; PULSE 62; RESP 17; TEMP 36.8; O2SAT 93
[2020-04-08] MEDS: heparin 5,000 unit/mL INJ 1 mL 5000 UNIT SUBCUT ×3 (05:35→21:39)
[2020-04-08 06:11] LABS: Glucose Point of Care 155 mg/dL (70-110)
[2020-04-08 08:00] VITALS: BP 184/78; PULSE 70; RESP 20; TEMP 36.6; O2SAT 97
[2020-04-08] MEDS: aspirin 81 mg EC Tablet PO (08:59)
[2020-04-08] MEDS: amlodipine 5 mg Tablet PO (08:59)
[2020-04-08] MEDS: propranolol 40 mg Tablet 80 MG PO ×2 (08:59→16:54)
[2020-04-08] MEDS: polyethylene glycol 3350 Pkt 17 gm PO (09:01)
--- NOTE | 2020-04-08 10:00 | PC.SOCIAL ---
IMM Updated Page 2 of IMM updated and given to patient. Initialed, dated, and timed and placed back in chart.
[2020-04-08 10:44] LABS: Glucose Point of Care 160 mg/dL (70-110)
--- NOTE | 2020-04-08 11:23 | US_ITS ---
WS: [id number] TESTICULAR ULTRASOUND HISTORY: orchitis/ r/o abscess COMPARISON: 04/02/2020 TECHNIQUE: Real-time and color Doppler imaging or utilized to perform a testicular ultrasound. Right testicle: 4.7 cm x 3.7 cm x 3.0 cm. Normal size and echogenicity. No mass or torsion. Marked increased vascularity throughout the testicle. No mass. Large mildly complex hydrocele. Right epididymis: Normal epididymis with no increased vascularity. Left testicle: 5.5 cm x 2.7 cm x 3.0 cm. Normal size and echogenicity. No mass or torsion. Mild heterogeneity throughout the testicle. Increased vascularity. No significant hydrocele. Left epididymis: Marked enlargement of the epididymis with increased vascularity. This has progressed since the prior study. Diffuse scrotal wall edema. US/US scrotum [id number] IMPRESSION: 1. Marked bilateral orchitis. No improvement since 04/02/2020. The LEFT orchiti s is new. 2. Large mildly complex RIGHT hydrocele has progressed in size. 3. Severe LEFT epididymitis is new. 4. Diffuse scrotal edema. 5. Suggest follow-up imaging after acute process resolves.
--- NOTE | 2020-04-08 11:24 | P.PN_ITS ---
Subjective Subjective: Interval history: Patient's scrotal edema seems to be improved some. Still having significant erythema though. His right testicular pain and tenderness seems to be unchanged over the past 2 to 3 days. The testicle itself still seems to be quite swollen. He does not have any fevers or chills. He is up walking better. Blood work seems to be improving. Medications: Reviewed: Yes Vitals/I&O/Wt Last Vital Signs Temp 97.9 F 04/08/20 08:00 Pulse 70 04/08/20 08:00 Resp 20 H 04/08/20 08:00 BP 184/78 04/08/20 08:00 Pulse Ox 97 04/08/20 08:00 04/07/20 04/08/20 04/08/20 22:59 06:59 14:59 Intake Total 2039 Balance 2039 Physical Exam Narrative: EXAM NARRATIVE: General: No acute distress, Alert. Well nourished. Heart: Regular rate and rhythm. No murmurs, rubs or gallops. Normal capillary refill. Lungs: Clear to auscultation. No wheezes, rhonchi or rales. Abdomen: Positive bowel sounds. Non-tender, non-distended. No hepat osplenomegaly. No gaurding. Extremities: No clubbing, cyanosis, or edema. Negative Luis Felipe's Testicles -his scrotum is diffusely red with moderate improvement in scrotal swelling however his right testicle still appears swollen and and tender to touch. . Data : 04/06/20 05:25 04/05/20 05:02 A&P Assessment and plan (1) Epididymo-orchitis: -Overall disappointed by the improvement he has had over the weekend. His blood work seems to be doing well. Urine culture sensitivities show that he has been on appropriate antibiotic coverage since admission. I think it is appropriate today to go ahead and repeat the ultrasound of his right testicle to rule out any evolving abscess. Continue IV antibiotics with imipenem for now.. Status: Acute (2) Acute epididymitis: -Overall not much change in his clinical picture. Status: Acute (3) Cellulitis of scrotum: Status: Acute (4) Hypertension: Stable at this time. We will continue with his home blood pressure medications and monitor. Status: Acute (5) BPH with obstruction/lower urinary tract symptoms: Status: Acute (6) Diabetes mellitus: Overall blood sugars are doing okay. We will continue to monitor Accu- Cheks. Status: Acute (7) Essential tremor: His shaking is improved with his increased dose of propranolol Status: Acute Attestations Medical Necessity Statement*: 84-year-old gentleman with orchitis and epididymitis requiring continued IV antibiotics and treatments in the inpatient setting. Coding Level of Care Code Acute Service Trainer for [facility] [place] Diagnoses Epididymo-orchitis N45.3 Acute epididymitis N45.1 Cellulitis of scrotum N49.2 Hypertension I10 BPH with obstruction/lower urinary tract symptoms N40.1; N13.8 Diabetes mellitus E11.9 Essential tremor G25.0
[2020-04-08 11:50] VITALS: BP 136/85; PULSE 60; RESP 18; TEMP 36.7; O2SAT 98
[2020-04-08 15:20] VITALS: BP 156/66; PULSE 64; RESP 18; TEMP 36.6; O2SAT 96
--- NOTE | 2020-04-08 16:51 | P.PN_ITS ---
Subjective Subjective: Interval history: Urology follow-up: Reviewed chart, examined patient, reviewed ultrasound personally. Clinically his exam is pretty much unchanged. He thinks there is somewhat decreased tenderness but it is not dramatic. No spiking fever or chills. The ultrasound implied significant worsening of new LEFT epididymoorchitis. The diagnosis is not substantiated on physical exam and the findings primarily are involvement of the right side as before. Much of the swelling is probably related to the hydrocele. There is no clear evidence of an abscess within the right tunica vaginalis and certainly nothing in the scrotum outside of the tunica vaginalis. He is on the right antibiotics. Reviewed with him these findings. Reassured regarding the LEFT hemiscrotal findings. Discussed surgical removal of the right testicle as a reasonable option for refractory epididymoorchitis while on appropriate antibiotics. Sometimes ischemic changes from edema and infection will lead to an infectious process that does not respond to antibiotic therapy. He is not opposed to that option. I will reexamine him in the morning and we can talk about that option again. Possibly right scrotal orchiectomy tomorrow. Vitals/I&O/Wt Last Vital Signs Temp 97.9 F 04/08/20 15:20 Pulse 64 04/08/20 15:20 Resp 18 04/08/20 15:20 BP 156/66 04/08/20 15:20 Pulse Ox 96 04/08/20 15:20 04/08/20 04/08/20 04/08/20 06:59 14:59 22:59 Intake Total 200 / 2140 Balance 200 / 2140 Physical Exam Const: COMMON NORMALS: no acute distress, alert and well nourished GENERAL APPEARANCE: well kempt and well developed ORIENTATION/CONSCIOUSNESS: not confused HENMT: COMMON NORMALS: normocephalic and atraumatic HEAD & SCALP: normocephalic and atraumatic Resp: COMMON NORMALS: normal respiratory effort EFFORT & INSPECTION: No labored and No Actively coughing : MALE GROIN/PERINEUM EXAM: No ecchymosis and No hernia PENIS: edematous and not erythematous MEATUS: meatus normal, no meatla discharge and No Blood at meatus present SCROTUM: Yes testes descended bilaterally OTHER: Not much change in the left hemiscrotal examination. There is no significant induration of the left epididymis or testicle. All of the findings are on the RIGHT. The structures within the tunica vaginalis are somewhat difficult to delineate due to the swelling and the inflammatory hydrocele. No clear fluctuance. No evidence of scrotal abscess. Neuro: SENSORIUM/ORIENTATION: Yes alert Psych: COMMON NORMALS: mental status grossly normal APPEARANCE: Yes grossly normal and Yes well kempt ATTITUDE: Yes calm and Yes engaged Data : 04/06/20 05:25 04/05/20 05:02 A&P Assessment and plan (1) Epididymo-orchitis: Still primarily right epididymoorchitis. The ultrasound I think is probably overreading left side given the physical findings today. This does need to be confirmed on serial examinations. Reviewed surgical extirpative treatment for the refractory right epididymoorchitis and he is willing to consider that if this does not turn around soon. Status: Acute (2) BPH with obstruction/lower urinary tract symptoms: Status: Acute Attestations Medical Necessity Statement*: Still requires IV antibiotics possibly surgery for refractory infection. Not a candidate at this point for outpatient management. Coding Level of Care Code Acute Office Clerk Assistant for [facility] [place] Diagnoses Epididymo-orchitis N45.3 BPH with obstruction/lower urinary tract symptoms N40.1; N13.8
[2020-04-08] MEDS: sennosides-docusate Tablet 1 TAB PO (16:54)
[2020-04-08 17:01] LABS: Glucose Point of Care 183 mg/dL (70-110)
--- NOTE | 2020-04-08 18:16 | PC.NURSE ---
Rounding - Patient assisted to bed from chair. Patient tolerated well. Elevated scrotum on rolled sheet. Patient expressed tenderness but denied need for any pain medication. Call Light is within reach and bedside tray is within reach of patient. Patient educated that after midnight he will be clear liquids only then at 0700 he will be NPO by Dr. Abel Woodson. Patient voiced understanding. Will continue to closely monitor. RENETTA, RUPERT
[2020-04-08 20:00] VITALS: BP 181/64; PULSE 63; RESP 18; TEMP 36.7; O2SAT 96
[2020-04-08 20:47] LABS: Glucose Point of Care 206 mg/dL (70-110)
[2020-04-09] VITALS (7 sets, daily range): BP systolic 100–184; BP diastolic 62–75; PULSE 58–106; RESP 13–18; TEMP 36.4–37.2; O2SAT 94–97
[2020-04-09 05:24] LABS: Basophils # 0.1 10^3/uL (0.0-0.1); Basophils % 1.6 %; Eosinophils # 0.3 10^3/uL (0.0-0.8); Eosinophils % 5.7 %; Hematocrit 35.3 % (42.0-52.0); Hemoglobin 11.5 g/dL (11.7-16.6); Lymphocytes # 0.8 10^3/uL (0.8-4.8); Lymphocytes % 18.8 %; Mean Corpuscular HGB Conc 32.6 g/dL (30.0-36.0); Mean Corpuscular Hemoglobin 28.3 pg (28.0-34.0); Mean Corpuscular Volume 86.7 fL (80-94); Mean Platelet Volume 11.1 fL (7.4-10.4); Monocytes # 0.6 10^3/uL (0.2-0.9); Monocytes % 14.4 %; Neutrophils # 2.46 10^3/uL (1.8-7.7); Neutrophils % 56.3 %; Nucleated Red Blood Cells % 0 %; Platelet Count 153 10^3/cmm (130-400); Red Blood Count 4.07 10^6/uL (4.1-5.3); Red Cell Distribution Width 13.4 % (12.1-15.1); White Blood Count 4.4 10^3/uL (4.0-10.0)
[2020-04-09] MEDS: heparin 5,000 unit/mL INJ 1 mL 5000 UNIT SUBCUT ×3 (05:48→21:18)
[2020-04-09 05:52] LABS: Anion Gap 13.9 (5-19); Blood Urea Nitrogen 19 mg/dL (8-23); Calcium 8.8 mg/dL (8.5-10.5); Carbon Dioxide 26 mmol/L (22-29); Chloride 100 mmol/L (98-107); Glucose 149 mg/dL (65-115); Osmolality Calculated 287 mOsm/kg (285-295); Potassium 3.9 mmol/L (3.5-5.1); Sodium 136 mmol/L (136-145)
[2020-04-09 05:54] LABS: C Reactive Protein 27.4 mg/L (0.0-4.9)
[2020-04-09 07:03] LABS: Glucose Point of Care 142 mg/dL (70-110)
--- NOTE | 2020-04-09 07:40 | P.PN_ITS ---
Subjective Subjective: Interval history: Patient seems to be improving some finally. Has less pain and tenderness. Still has some significant erythema and some swelling. No fevers or chills. Medications: Reviewed: Yes Vitals/I&O/Wt Last Vital Signs Temp 97.9 F 04/10/20 04:00 Pulse 70 04/10/20 04:00 Resp 18 04/10/20 04:00 BP 181/73 04/10/20 04:00 Pulse Ox 98 04/10/20 04:00 04/09/20 04/10/20 04/10/20 22:59 06:59 14:59 Intake Total 480 / 2060 100 / 2060 Output Total 250 / 250 Balance 480 / 1810 -150 / 1810 Physical Exam Narrative: EXAM NARRATIVE: General: No acute distress, Alert. Well nourished. Heart: Regular rate and rhythm. No murmurs, rubs or gallops. Normal capillary refill. Lungs: Clear to auscultation. No wheezes, rhonchi or rales. Abdomen: Positive bowel sounds. Non-tender, non-distended. No hepatosplenomegaly. No gaurding. Extremities: No clubbing, cyanosis, or edema. Negative Luis Felipe's Testicles -his scrotum is diffusely red with moderate improvement in scrotal swelling his right testicle is finally much less tender. Data : 04/09/20 04:48 04/09/20 04:48 Micro: Microbiology 04/04/20 07:45 Blood Culture - Final Blood NO GROWTH AFTER 5 DAYS 04/04/20 07:50 Blood Culture - Final Blood NO GROWTH AFTER 5 DAYS A&P Assessment and plan (1) Epididymo-orchitis: -Finally seen some significant improvement. We will continue with time of pain and probably for another couple of days.. Status: Acute (2) Acute epididymitis: -Overall not much change in his clinical picture. Status: Acute (3) Cellulitis of scrotum: Status: Acute (4) Hypertension: Stable at this time. We will continue with his home blood pressure medications and monitor. Status: Acute (5) BPH with obstruction/lower urinary tract symptoms: Status: Acute (6) Diabetes mellitus: Overall blood sugars are doing okay. We will continue to monitor Accu- Cheks. Status: Acute (7) Essential tremor: His shaking is improved with his increased dose of propranolol Status: Acute Attestations Medical Necessity Statement*: 84-year-old gentleman was orchitis requiring continued inpatient IV treatments and monitoring. Coding Level of Care Code Acute Marketing Coordinator for [employer] Diagnoses Epididymo-orchitis N45.3 Acute epididymitis N45.1 Cellulitis of scrotum N49.2 Hypertension I10 BPH with obstruction/lower urinary tract symptoms N40.1; N13.8 Diabetes mellitus E11.9 Essential tremor G25.0
--- NOTE | 2020-04-09 07:54 | PM.PN ---
Subjective Subjective: Interval history: Urology follow-up He feels better today. Decreased tenderness and pain. No fever or chills. No other new complaints. We reviewed options including surgical removal of testicle but given the improvement in his symptoms despite still persistence of induration I think it is reasonable to continue waiting. Generally the pain and discomfort improves first and that is slowly followed by resolution of induration over time when antibiotic therapy is working. He is comfortable with that. Obviously still needs parenteral antibiotics for now. We will continue to follow. Vitals/I&O/Wt Last Vital Signs Temp 98.2 F 04/09/20 07:11 Pulse 61 04/09/20 07:11 Resp 16 04/09/20 07:11 BP 150/66 04/09/20 07:11 Pulse Ox 96 04/09/20 07:11 04/08/20 04/09/20 04/09/20 22:59 06:59 14:59 Intake Total 340 / 440 100 / 540 Balance 340 / 440 100 / 540 Physical Exam Narrative: EXAM NARRATIVE: exam: Overall decreased edema of the scrotal wall. The left hemiscrotum is benign. There is still significant induration but some overall decrease in swelling of the left hemiscrotal contents. Much less tender today than yesterday. Decreased edema of the penis. Const: COMMON NORMALS: no acute distress, alert and well nourished GENERAL APPEARANCE: well kempt and well developed ORIENTATION/CONSCIOUSNESS: not confused Resp: COMMON NORMALS: normal respiratory effort EFFORT & INSPECTION: No labored and No Actively coughing Neuro: SENSORIUM/ORIENTATION: Yes alert Psych: COMMON NORMALS: mental status grossly normal APPEARANCE: Yes grossly normal and Yes well kempt ATTITUDE: Yes calm and Yes engaged Data : 04/09/20 04:48 04/09/20 04:48 A&P Assessment and plan (1) Epididymo-orchitis: Slow but definite clinical improvement on exam and symptoms. No evidence of septic concerns. Reviewed options and he was comfortable with continued IV antibiotics for now. Restore normal diet for him and continue current therapy. Status: Acute Attestations Medical Necessity Statement*: Still requiring IV antibiotics for severe right epididymoorchitis. Coding Level of Care Code Acute Dimensional Inspector for [facility] Diagnoses Epididymo-orchitis N45.3
--- NOTE | 2020-04-09 07:55 | PC.NURSE ---
Dr. Woodson stated to this automobile service writer that patient will not be having surgery and he could have his breakfast tray at this time.
[2020-04-09] MEDS: aspirin 81 mg EC Tablet PO (08:12)
[2020-04-09] MEDS: propranolol 40 mg Tablet 80 MG PO ×2 (08:12→17:12)
[2020-04-09] MEDS: polyethylene glycol 3350 Pkt 17 gm PO (08:12)
[2020-04-09] MEDS: sennosides-docusate Tablet 1 TAB PO ×2 (08:12→17:12)
[2020-04-09] MEDS: amlodipine 5 mg Tablet PO (08:12)
[2020-04-09 10:57] LABS: Glucose Point of Care 176 mg/dL (70-110)
[2020-04-09 17:10] LABS: Glucose Point of Care 150 mg/dL (70-110)
[2020-04-09 21:39] LABS: Glucose Point of Care 176 mg/dL (70-110)
[2020-04-10] VITALS (7 sets, daily range): BP systolic 168–184; BP diastolic 59–78; PULSE 63–86; RESP 17–22; TEMP 36.5–37; O2SAT 95–98
[2020-04-10] MEDS: heparin 5,000 unit/mL INJ 1 mL 5000 UNIT SUBCUT ×3 (05:15→20:53)
[2020-04-10 06:45] LABS: Glucose Point of Care 146 mg/dL (70-110)
--- NOTE | 2020-04-10 07:42 | P.PN_ITS ---
Subjective Subjective: Interval history: Significant improvement today. Much less redness noted today. Pain seems to be improving. No fevers or chills. Medications: Reviewed: Yes Vitals/I&O/Wt Last Vital Signs Temp 97.9 F 04/10/20 04:00 Pulse 70 04/10/20 04:00 Resp 18 04/10/20 04:00 BP 181/73 04/10/20 04:00 Pulse Ox 98 04/10/20 04:00 04/09/20 04/10/20 04/10/20 22:59 06:59 14:59 Intake Total 480 / 2060 100 / 2060 Output Total 250 / 250 Balance 480 / 1810 -150 / 1810 Physical Exam Narrative: EXAM NARRATIVE: General: No acute distress, Alert. Well nourished. Heart: Regular rate and rhythm. No murmurs, rubs or gallops. Normal capillary refill. Lungs: Clear to auscultation. No wheezes, rhonchi or rales. Abdomen: Positive bowel sounds. Non-tender, non-distended. No hepa tosplenomegaly. No gaurding. Extremities: No clubbing, cyanosis, or edema. Negative Luis Felipe's Testicles -his scrotum is diffusely red with moderate improvement in scrotal swelling his right testicle is finally much less tender. Data : 04/09/20 04:48 04/09/20 04:48 Micro: Microbiology 04/04/20 07:45 Blood Culture - Final Blood NO GROWTH AFTER 5 DAYS 04/04/20 07:50 Blood Culture - Final Blood NO GROWTH AFTER 5 DAYS A&P Assessment and plan (1) Epididymo-orchitis: -Patient has had continued improvement today. Due to the protracted course of this I think it would be prudent to continue with 1 more day of IV antibiotics. Anticipate discharge probably tomorrow on oral antibiotics unless otherwise advised by urology. Status: Acute (2) Acute epididymitis: -Overall not much change in his clinical picture. Status: Acute (3) Cellulitis of scrotum: Status: Acute (4) Hypertension: Stable at this time. We will continue with his home blood pressure medications and monitor. Status: Acute (5) BPH with obstruction/lower urinary tract symptoms: Status: Acute (6) Diabetes mellitus: Overall blood sugars are doing okay. We will continue to monitor Accu-Cheks. Status: Acute (7) Essential tremor: His shaking is improved with his increased dose of propranolol Status: Acute Attestations Medical Necessity Statement*: 84-year-old with persistent scrotal infection requiring continued IV antibiotics and treatment. 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
[2020-04-10] MEDS: aspirin 81 mg EC Tablet PO (08:33)
[2020-04-10] MEDS: amlodipine 5 mg Tablet PO (08:33)
[2020-04-10] MEDS: polyethylene glycol 3350 Pkt 17 gm PO (08:33)
[2020-04-10] MEDS: propranolol 40 mg Tablet 80 MG PO ×2 (08:33→17:27)
[2020-04-10] MEDS: sennosides-docusate Tablet 1 TAB PO ×2 (08:33→17:27)
[2020-04-10 10:37] LABS: Glucose Point of Care 262 mg/dL (70-110)
--- NOTE | 2020-04-10 11:00 | PC.SOCIAL ---
IMM Updated Page 2 of IMM updated and given to patient. Initialed, dated, and timed and placed back in chart.
--- NOTE | 2020-04-10 12:43 | P.PN_ITS ---
Subjective Subjective: Interval history: Urology follow-up: Continues to improve. Much less tenderness today. No spiking fever or chills. Does complain of some constipation. Physical findings show continued improvement with decreased erythema, overall decrease swelling of the right hemiscrotal contents and certainly continued decreased tenderness. No evidence of fluctuance etc. In general delayed but appropriate response to antibiotic therapy targeted based on cultures. Previous consideration for surgical intervention for extirpative therapy does not appear to be required at this point. Agree with continued antibiotics. Vitals/I&O/Wt Last Vital Signs Temp 97.7 F 04/10/20 11:15 Pulse 64 04/10/20 11:15 Resp 22 H 04/10/20 11:15 BP 182/69 04/10/20 11:15 Pulse Ox 98 04/10/20 11:15 04/09/20 04/10/20 04/10/20 22:59 06:59 14:59 Intake Total 480 / 1960 100 / 2060 100 / 100 Output Total 250 / 250 Balance 480 / 1959 -150 / 1810 100 / 100 Physical Exam Const: COMMON NORMALS: no acute distress and patient oriented x3 HENMT: COMMON NORMALS: normocephalic HEAD & SCALP: normocephalic Resp: EFFORT & INSPECTION: Yes able to speak in complete sentences and No labored GI: COMMON NORMALS: Soft to palpation and non-tender PALPATION: Yes Soft to palpation : OTHER: Significant improvement continues. Decreasing erythema, scrotal swelling/edema. Decreased tenderness of the right hemiscrotal contents. No evidence of fluctuance. Decreased overall induration in size although not dramatically so. Still with some penile edema. Reassuring. Neuro: COMMON NORMALS: patient oriented x3 OTHER: Persistent tremor Psych: COMMON NORMALS: mental status grossly normal Data : 04/09/20 04:48 04/09/20 04:48 Micro: Microbiology 04/04/20 07:45 Blood Culture - Final Blood NO GROWTH AFTER 5 DAYS 04/04/20 07:50 Blood Culture - Final Blood NO GROWTH AFTER 5 DAYS A&P Assessment and plan (1) Epididymo-orchitis: Continues with slow but definite clinical improvement on exam and symptoms. No evidence of septic concerns. Continue antibiotics. Status: Acute Attestations Medical Necessity Statement*: Attending Coding Level of Care Code Acute Rewards Consultant for [facility] Diagnoses Epididymo-orchitis N45.3
[2020-04-10 16:32] LABS: Glucose Point of Care 212 mg/dL (70-110)
[2020-04-10 21:13] LABS: Glucose Point of Care 240 mg/dL (70-110)
[2020-04-11] VITALS: BP 164/70; PULSE 70; RESP 21; TEMP 37.2; O2SAT 95
[2020-04-11 04:00] VITALS: BP 151/76; PULSE 70; RESP 21; TEMP 36.4; O2SAT 97
[2020-04-11] MEDS: heparin 5,000 unit/mL INJ 1 mL 5000 UNIT SUBCUT ×2 (05:36→13:39)
[2020-04-11 06:44] LABS: Glucose Point of Care 174 mg/dL (70-110)
[2020-04-11 08:00] VITALS: BP 138/68; PULSE 66; RESP 16; TEMP 36.6; O2SAT 96
[2020-04-11] MEDS: aspirin 81 mg EC Tablet PO (10:21)
[2020-04-11] MEDS: amlodipine 5 mg Tablet PO (10:21)
[2020-04-11] MEDS: propranolol 40 mg Tablet 80 MG PO (10:22)
[2020-04-11 10:54] LABS: Glucose Point of Care 219 mg/dL (70-110)
[2020-04-11 11:31] VITALS: BP 188/81; PULSE 63; RESP 16; TEMP 36.7; O2SAT 96
--- NOTE | 2020-04-11 11:56 | PC.CHAP ---
Pastoral Care Encounter/Spiritual Assessment Type of Contact [] Declined ship mate visit [] Patient/Family/Request visit [] Outpatient visit [] Follow-up visit [] Physician referral [] Code/Alert [x] Routine visit [] Staff referral [] Actively dying [] Patient sleeping [] Family support [] [] Out of room [] Palliative care [] [x] Receiving care in room [] Pre-surgical visit [] Trauma [] Long length of stay [] ICU visit [] Other: Relational/Emotional Strength [x] Patient feels connected with others/family/visitors/staff [] Distress [] Loneliness/isolation [] Abandonment Spirituality of Patient [x] Person of Yenifer [] Attends Church of their Yenifer [x] Believes in Prayer [] Reads Bible or Taoism materials [] There are Spiritual issues to be addressed Pediatric Pathologist Interventions [x] Prayer [x] Active listening [x] Non-anxious presence [x] Spiritual/emotional support [] Crisis/trauma care [x] Spiritual counseling [] Bereavement support [] Provided bereavement packet [] Provided Bible/devotional materials [] Provided toy/stuffed animal, coloring book to patient or family member [] Provided Communion [] Anointing/[place] [] Salvation [x] Completed spiritual assessment [] Other: Impact on Illness or Injury [] Angry [] Fearful [] Anxious [] Often cries [] Exhaustion [] Unable to work [] Unable to attend mosque [] Unable to walk/stand [] Unable to read [] Unable to drive [] Unable to eat/drink [] Unable to sleep [] Unable to be with family [] Patient intubated [] Other: Summary General weakness infection, lives a lone but has family cose by, feels good going home today has a good attitude Time spent with patient 10 mins
--- NOTE | 2020-04-11 12:02 | PC.CHAP ---
Pastoral Care Encounter/Spiritual Assessment Type of Contact [] Declined juice mixer visit [] Patient/Family/Request visit [] Outpatient visit [] Follow-up visit [] Physician referral [] Code/Alert [x] Routine visit [] Staff referral [] Actively dying [] Patient sleeping [] Family support [] [] Out of room [] Palliative care [] [x] Receiving care in room [] Pre-surgical visit [] Trauma [] Long length of stay [] ICU visit [] Other: Relational/Emotional Strength [x] Patient feels connected with others/family/visitors/staff [] Distress [] Loneliness/isolation [] Abandonment Spirituality of Patient [x] Person of Yenifer [] Attends Episcopalian of their Yenifer [x] Believes in Prayer [] Reads Bible or Scientologist materials [] There are Spiritual issues to be addressed Juice Mixer Interventions [x] Prayer [x] Active listening [x] Non-anxious presence [x] Spiritual/emotional support [] Crisis/trauma care [x] Spiritual counseling [] Bereavement support [] Provided bereavement packet [] Provided Bible/devotional materials [] Provided toy/stuffed animal, coloring book to patient or family member [] Provided Communion [] Anointing/[place] [] Salvation [x] Completed spiritual assessment [] Other: Impact on Illness or Injury [] Angry [] Fearful [x] Anxious [] Often cries [] Exhaustion [] Unable to work [] Unable to attend yazdanism [] Unable to walk/stand [] Unable to read [] Unable to drive [] Unable to eat/drink [] Unable to sleep [] Unable to be with family [] Patient intubated [] Other: Summary HAS a blood clots taking been on Chemo has had a set-back on trearments, doesn't know what treatment or Chemo will be needed Time spent with patient 10 mins
--- NOTE | 2020-04-11 13:55 | P.DS_ITS ---
Discharge Providers Date of Admission: 04/03/20 07:24 Date of Discharge: April 11, 2020 Attending Provider at Admission: Edwin Sandoval MD Attending Provider at Discharge: Carlos Marques MD Primary Care Provider: Carlos Marques MD Diagnoses at Discharge Discharge Diagnosis (1) Epididymo-orchitis: Status: Acute Reason for Visit Reason for Visit: GENERAL WEAKNESS, SWOLLEN R TESTICLE Hospital Course Discharge Summary: Patient is an 84-year-old gentleman that came in with infection in his scrotum testicle and epididymis. He required IV antibiotics for this. Had significant pain swelling and redness. Had significantly elevated inflammatory markers. These finally came down by the time of discharge. He was initially placed on IV Rocephin. He was extremely weak initially but gradually build to strength up with physical therapy. Did not seem to be getting much improvement clinically with the Rocephin although his labs were improving. He was switched over to a imipenem. Urine cultures for this hospital stay did end up growing out E. coli showing sensitivities to Rocephin and I imipenem. Patient did gradually finally improved. His stay was more protracted than expected though. Patient is finally ready for discharge. Is being sent home on Bactrim. We will follow-up closely in the clinic. Discharge Data Data Completed and Pending: Completed Studies During Hospitalization Category Date Time Status XR chest 1V andrew ble [id number] Stat Exams 04/02/20 15:24 Completed US scrotum [id number] Routine Ultrasound 04/08/20 11:23 Completed US scrotum [id number] Urgent Ultrasound 04/02/20 15:24 Completed Labs from last 24 hours 04/11/20 04/11/20 04/10/20 10:51 06:41 20:46 POC Glucose 219 174 240 04/10/20 16:25 POC Glucose 212 Vitals: Last Vital Signs Temp 98.0 F 04/11/20 11:31 Pulse 63 04/11/20 11:31 Resp 16 04/11/20 11:31 BP 188/81 04/11/20 11:31 Pulse Ox 96 04/11/20 11:31 Discharge Plan Discharge Patient Disposition: Home Health Service Condition: Stable Prescriptions: New sulfamethoxazole-trimethoprim [Bactrim DS] 800-160 mg tablet 1 tab PO BID Qty: 14 RF: 0 Continued propranolol 80 mg capsule,extended release 24 hr 80 mg PO DAILY RF: 0 glimepiride 4 mg tablet 4 mg PO DAILY RF: 0 clonazepam 0.5 mg tablet 0.5 mg PO TID RF: 0 aspirin [Aspir-81] 81 mg tablet,delayed release (DR/EC) 81 mg PO DAILY RF: 0 ascorbic acid (vitamin C) 500 mg capsule 500 mg PO DAILY RF: 0 potassium chloride 10 mEq tablet extended release 10 meq PO DAILY PRN (Reason: Take with furosemide) Qty: 30 RF: 6 furosemide 20 mg tablet 20 mg PO DAILY PRN (Reason: edema) Qty: 30 RF: 6 amlodipine 5 mg tablet 5 mg PO DAILY 30 Days Qty: 90 RF: 3 methenamine hippurate 1 gram tablet 1 gm PO BID Qty: 60 RF: 6 Discharge Orders: Discharge Order (Routine); Ordered 04/11/20 Ordered By: Carlos Marques Referrals: Carlos Marques MD [Primary Care Provider] - 4-7 days Discharge Diet: Usual diet Discharge Activity: Resume usual activity Activity Restrictions/Additional Instructions: -You had infection in your testicle and epididymis. Urine culture grew out E. coli. -Resume all of your home medications the same. Only new medication is Bactrim twice a day for 7 days -Call if increasing pain or fevers -Follow-up with Dr. Marques on Wednesday or Wednesday of next week Discharge Attestations Time Spent in Discharge Care*: greater than 30 min Quality Metrics Clinical Quality Measures During this hospital stay, did patient experience: None Coding Level of Care Code Acute [facility] Diagn[facility] Epididymo-orchitis N45.3
[2020-04-11 15:32] VITALS: BP 174/77; PULSE 61; RESP 16; TEMP 36.9; O2SAT 95
[2020-04-11 17:00] LABS: Glucose Point of Care 189 mg/dL (70-110)
[2020-04-11 18:37] VITALS: BP 174/77; PULSE 61; RESP 16; TEMP 36.9; O2SAT 95
== END 2020-04-11 18:00 | disposition home health service (06) | DRG 728 ==
LOC: ER 18:27 → MEDSURG 21:27
PROVIDERS: Family Medicine; Internal Medicine; Admitting Provider Internal Medicine; PCP Family Medicine; Visit Provider Family Medicine
DX: N45.3 Epididymo-orchitis (principal); N17.9 Acute kidney failure, unspecified; E87.1 Hypo-osmolality and hyponatremia; N39.0 Urinary tract infection, site not specified; N40.1 Benign prostatic hyperplasia with lower urinary tract symptoms; G25.0 Essential tremor; K59.00 Constipation, unspecified; G56.03 Carpal tunnel syndrome, bilateral upper limbs; I73.9 Peripheral vascular disease, unspecified; Z87.440 Personal history of urinary (tract) infections; I83.90 Asymptomatic varicose veins of unspecified lower extremity; Z87.891 Personal history of nicotine dependence; F10.21 Alcohol dependence, in remission; E11.65 Type 2 diabetes mellitus with hyperglycemia; Z66 Do not resuscitate; I10 Essential (primary) hypertension; B96.20 Unspecified Escherichia coli [E. coli] as the cause of diseases classified elsewhere; Z79.84 Long term (current) use of oral hypoglycemic drugs
CPT/HCPCS: 12345; 36415; 36416; 71045; 76870; 80048; 80053; 81001; 82550; 82962; 83036; 85025; 86140; 87040; 87077; 87086; 87186; 93005; 96372; 96375; 97110; 97116; 97161; 97530; 99283; G0378; J0696; J0743; J1644; J1885; J1956; J7030

== ENCOUNTER 2020-04-25 08:04 | Outpatient (CLI) | payer MEDICARE, SELFPAY ==
--- NOTE | 2020-04-25 08:11 | US_ITS ---
WS: [id number] TESTICULAR ULTRASOUND HISTORY: ORCHITIS COMPARISON: 04/08/2020 TECHNIQUE: Real-time and color Doppler imaging or utilized to perform a testicular ultrasound. Right testicle: 4.7 cm x 3.3 cm x 3.4 cm. Variable echogenicity with no mass. Marked increased color Doppler throughout the entire testicle. Similar to the prior study. Large simple hydrocele. Right epididymis: Normal epididymis with no increased vascularity. Left testicle: 4.2 cm x 3.6 cm x 3.7 cm. Variable echogenicity throughout the testicle. There are numerous striations of low echogenicity. The testicle is negative for mass. Normal color Doppler. Small adjacent hydrocele. Left epididymis: Epididymis is slightly enlarged. There is mild diffuse scrotal wall thickening but greatest on the LEFT. US/US scrotum [id number] IMPRESSION: 1. Continued severe RIGHT orchitis. 2. Variable echogenicity throughout the LEFT testicle but no orchitis. 3. Diffuse scrotal wall thickening. 4. Large simple RIGHT hydrocele is unchanged. 5. Suspect mild LEFT epididymitis.
== END 2020-04-25 08:05 | disposition home or self-care (01) ==
LOC: RAD 08:08
PROVIDERS: PCP Family Medicine; Visit Provider Family Medicine
DX: N45.2 Orchitis (principal); N43.3 Hydrocele, unspecified; N45.1 Epididymitis
CPT/HCPCS: 76870; 81001

== ENCOUNTER → 2020-05-09 08:18 | Outpatient (BNVA) | payer MEDICARE, SELFPAY | PROVIDERS: PCP Family Medicine; Visit Provider Urology | DX: N40.1 Benign prostatic hyperplasia with lower urinary tract symptoms (principal); N13.8 Other obstructive and reflux uropathy | CPT/HCPCS: 81003 ==

== ENCOUNTER 2020-05-10 18:14 | Outpatient (CLI) | payer MEDICARE, SELFPAY | END 2020-05-10 18:15 | disposition home or self-care (01) | LOC: LAB 18:16 | PROVIDERS: PCP Family Medicine; Visit Provider Family Medicine | DX: N45.1 Epididymitis (principal) | CPT/HCPCS: 87493 ==

== ENCOUNTER 2020-06-03 15:05 | Outpatient (CLI) | payer MEDICARE, SELFPAY ==
--- NOTE | 2020-06-03 15:11 | USCV_ITS ---
Arias Karimi Age: 84 Gender: M : 1935 Exam Date: 06/03/2020 15:29 Ordering Phys: Carlos Marques MD Technologist: Ammy Roland Exam Location: [facility] Indication: CVA SYMPTOMS BP: / HR: 65 Rhythm: Sinus Technical Quality: Adequate MEASUREMENTS (Male / Female) Normal Values 2D ECHO LV Diastolic Diameter PLAX 5.0 cm 4.2 - 5.9 / 3.9 - 5.3 cm LV Systolic Diameter PLAX 2.9 cm LV Chamber Size 4.3 cm IVS Diastolic Thickness 1.5 cm 0.6 - 1.0 / 0.6 - 0.9 cm IVS Systolic Thickness 1.7 cm LVPW Diastolic Thickness 1.7 cm 0.6 - 1.0 / 0.6 - 0.9 cm LVPW Systolic Thickness 2.4 cm RV Chamber Size 2.8 cm LVOT Diameter 2.0 cm LV Ejection Fraction 2D Teich 73.4 % LV Ejection Fraction MOD 2C 21.4 % LV Ejection Fraction 2C AL 18.6 % LA Diameter 3.5 cm LA Width 3.2 cm LA Height 5.4 cm RA Width 3.1 cm RA Height 4.5 cm Aorta at Sinotubular Diameter 3.4 cm M-MODE LV Diastolic Diameter MM 5.6 cm 4.2 - 5.9 / 3.9 - 5.3 cm LV Systolic Diameter MM 3.0 cm LV Ejection Fraction MM Teich 76.6 % IVS Diastolic Thickness MM 0.8 cm 0.6 - 1.0 / 0.6 - 0.9 cm IVS Systolic Thickness MM 1.7 cm LVPW Diastolic Thickness MM 0.9 cm 0.6 - 1.0 / 0.6 - 0.9 cm LVPW Systolic Thickness MM 1.9 cm RV Diastolic Diameter MM 1.4 cm Aortic Annulus Diameter 3.2 cm LA Ao Ratio MM 1.5 MV E Point Septal Separation 0.7 cm DOPPLER AV Peak Velocity 124.0 cm/s LVOT Peak Velocity 85.0 cm/s AV Area Cont Eq vti 2.2 cm squared AV Area Cont Eq pk 2.2 cm squared MV Area PHT 2.8 cm squared Mitral E to A Ratio 0.7 MV E' Velocity 31.0 cm/s Mitral E to MV E' Ratio 12.9 Mitral E to LV E' Lateral Ratio 15.3 Mitral E to LV E' Septal Ratio 11.2 TR Peak Velocity 126.3 cm/s TR Peak Gradient 6.4 mmHg TR Mean Velocity 90.0 cm/s TR Mean Gradient 3.7 mmHg TR Velocity Time Integral 38.3 cm TV Peak E Velocity 73.0 cm/s Right Atrial Pressure 5.0 mmHg Pulmonary Artery Systolic Pressu 11.4 mmHg PV Peak Velocity 63.0 cm/s RV Acceleration Time 0.1 s RV Ejection Time 0.4 s RV AcT/ET 0.3 FINDINGS Left Ventricle Normal left ventricular cavity size. Normal left ventricular systolic function. Left ventricular ejection fraction is estimated at 65 %. No regional wall motion abnormalities. Grade I/IV diastolic dysfunction (abnormal relaxation filling pattern), normal to mildly elevated filling pressures. Right Ventricle The right ventricle is normal in size and function. Right Atrium The right atrium is normal in size. Left Atrium The left atrium is normal in size. Mitral Valve Structurally normal mitral valve without significant stenosis or prolapse. There is no mitral regurgitation. Aortic Valve Moderate aortic valve calcification. No aortic valve stenosis. Mild aortic valve regurgitation. Tricuspid Valve Structurally normal tricuspid valve without significant stenosis or regurgitation. Pulmonary artery systolic pressure is normal. Pulmonic Valve Structurally normal pulmonic valve without significant stenosis. There is no pulmonic regurgitation. Pericardium Normal pericardium without effusion. Aorta Normal ascending aorta dimension. CONCLUSIONS 1-Normal left ventricular cavity size. Normal left ventricular systolic function. Left ventricular ejection fraction is estimated at 65 %. No regional wall motion abnormalities. Grade I/IV diastolic dysfunction (abnormal relaxation filling pattern), normal to mildly elevated filling pressures. 2-Moderate aortic valve calcification. No aortic valve stenosis. Mild aortic valve regurgitation. 3-There is no pericardial effusion. 4-Pulmonary artery systolic pressure is within normal limits. 5-Right atrial pressure is around 5 mm of mercury. 6-No significant change since the prior echocardiogram study of 01/08/2015. Maris Ellison MD (Electronically Signed) Final Date: 03 June 2020 19:00 S
== END 2020-06-03 15:06 | disposition home or self-care (01) ==
LOC: RAD 15:08
PROVIDERS: PCP Family Medicine; Visit Provider Family Medicine
DX: G45.9 Transient cerebral ischemic attack, unspecified (principal); I35.1 Nonrheumatic aortic (valve) insufficiency
CPT/HCPCS: 93306

== ENCOUNTER 2020-06-05 13:07 | Outpatient (CLI) | payer MEDICARE, SELFPAY ==
--- NOTE | 2020-06-05 13:24 | CT_ITS ---
WS: [id number] CTA HEAD AND NECK TECHNIQUE: Contrast enhanced CTA of the head and neck with coronal and sagittal reformatted images an d maximum intensity projection (MIP) images. NASCET criteria utilized. CLINICAL INFORMATION: TIA COMPARISON: None. DLP: 4159.[address] scans at [facility] use at least one of these dose optimization techniques: automat ed exposure control; mA and/or kV adjustment per patient size (includes targeted exams where dose is matched to clinical indication); or iterative reconstruction. FINDINGS: Noncontrast CT of the head. No evidence of intracranial hemorrhage or mass effect. Ventricu lar system and basal cisterns are patent. Mild small vessel changes. Moderate parenchymal volume loss . Chronic lacunar infarcts bilateral cerebellum. No extra-axial fluid collections. Intracranial vascu lar calcification. Mastoid air cells and paranasal sinuses are well aerated. RIGHT: Right common carotid artery is patent. Calcified atheromatous plaque right carotid bulb extend ing into the ICA with stenosis measuring approximately 62%. Right ICA is patent to the skull base. LEFT: Left common carotid artery is patent. Calcified atheromatous plaque left carotid bulb extending into the ICA with stenosis measuring approximately 61%. Left ICA is patent to the skull base. Mastoid air cells are well aerated. Paranasal Sinuses are well aerated. Small amount of fluid in the right maxillary sinus. Mild mucosal thickening left maxillary sinus. Left dominant vertebral artery. Tiny hypoplastic right vertebral artery. Moderate narrowing intracran ial left vertebral artery which remains patent. Proximal basilar artery is patent. Normal vascularity to the PATIENT LIAISON territory bilaterally. Both ICAs are patent at the skull base. Moderate cavernous carotid atheromatous disease. Cavernous ca rotid arteries remain patent. Patent anterior communicating artery. Normal vascularity to the ORESTES and MCA territories bilaterally. No evidence of high-grade proximal stenosis or aneurysm. Hypoplastic ri ght A1 segment. Dural venous sinuses appear patent. A few prominent lymph nodes partially visualized in the anterior mediastinum. This can be followed up with chest CT. Largest lymph nodes along the right anterior mediastinum and paratracheal region lukasz ure 11-12 mm. Normal posterior nasopharynx. Moderate spondylitic changes cervical spine with grade 1 anterolisthesi s C4 on C5. 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 INTRACRANIAL CTA: CT/CT angio headneck* [id number] IMPRESSION: 1. 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 2. Left proximal ICA stenosis measures 61%. 3. Left dominant vertebral artery. 4. Normal intracranial CTA. No evidence of flow-limiting stenosis or aneurysm. 5. Prominent lymph nodes in the anterior mediastinum described above. This can be followed up with chest CT. 6. Moderate central canal stenosis in the lower cervical spine at C5-C6. This can be followed up with MRI or CT. 7. Mild small vessel changes with moderate parenchymal volume loss. 8. Chronic lacunar infarcts in the right greater than left cerebellum.
[2020-06-05] MEDS: iodixanol 320 mg/mL 100mL Btl IV (14:31)
== END 2020-06-05 13:08 | disposition home or self-care (01) ==
LOC: RADWPI 13:11
PROVIDERS: PCP Family Medicine; Visit Provider Family Medicine
DX: G45.9 Transient cerebral ischemic attack, unspecified (principal); M48.02 Spinal stenosis, cervical region; I63.9 Cerebral infarction, unspecified
CPT/HCPCS: 70496; 70498; Q9967

== ENCOUNTER 2020-11-07 08:43 | Outpatient (CLI) | payer MEDICARE, SELFPAY ==
--- NOTE | 2020-11-07 08:54 | XR_ITS ---
WS: [id number] Exam: XR knee RT 3V* [id number] Date/Time of Exam: 11/07/2020 8:56 AM Reason For Exam: HIP PAIN, RIGHT No acute fracture or dislocation. Moderate tricompartmental DJD most severe involving the medial join t compartment. Multiple calcified loose joint bodies. Marked spurring of the patella. Calcifications in the suprapatellar bursa that may represent synovial osteochondromas. XR/XR knee RT 3V* [id number] IMPRESSION: 1. No fracture or dislocation. Advanced degenerative changes.
--- NOTE | 2020-11-07 08:54 | XR_ITS ---
WS: [id number] Exam: XR hip RT 2-3V wo/w pel* [id number] Date/Time of Exam: 11/07/2020 8:56 AM Reason For Exam: HIP PAIN RIGHT No acute fracture or dislocation. Moderate osteoarthritis noted. There is bony hypertrophy of the lat eral margin of the acetabulum that might predispose the patient to femoral acetabular impingement. So ft tissue calcifications along the greater trochanter might reflect calcific bursitis. Periosteal thi ckening along the upper medial femur. XR/XR hip RT 2-3V wo/w pel* [id number] IMPRESSION: 1. Moderate osteoarthritis. No fracture. 2. Acetabular changes at may predispose the patient to femoral acetabular impin gement. 3. Soft tissue calcification along the greater trochanter that might indicate c alcific bursitis.
== END 2020-11-07 08:44 | disposition home or self-care (01) ==
PROVIDERS: PCP Family Medicine; Visit Provider Family Medicine
DX: M16.11 Unilateral primary osteoarthritis, right hip (principal)
CPT/HCPCS: 73502; 73562; 81003

== ENCOUNTER 2021-03-27 06:00 | Outpatient (RCR) | payer MEDICARE, SELFPAY | END 2021-04-10 23:59 | disposition home or self-care (01) | LOC: AOT 06:00 | PROVIDERS: PCP Family Medicine; Referring Provider Psychiatry & Neurology Neurology; Visit Provider Psychiatry & Neurology Neurology | DX: G20 Parkinson's disease (principal); M19.041 Primary osteoarthritis, right hand | CPT/HCPCS: 97166 ==

== ENCOUNTER → 2021-10-02 14:24 | Outpatient (BNVA) | payer MEDICARE, SELFPAY | PROVIDERS: PCP Family Medicine; Visit Provider Internal Medicine | DX: I73.9 Peripheral vascular disease, unspecified (principal); I83.93 Asymptomatic varicose veins of bilateral lower extremities; I10 Essential (primary) hypertension; Z87.891 Personal history of nicotine dependence | CPT/HCPCS: 99214 ==

== ENCOUNTER → 2021-10-09 14:00 | Outpatient (BNVA) | payer MEDICARE, SELFPAY | PROVIDERS: PCP Family Medicine; Visit Provider Nurse Practitioner Family | DX: N39.0 Urinary tract infection, site not specified (principal) | CPT/HCPCS: 81003 ==

== ENCOUNTER 2021-10-21 11:19 | Inpatient (IN) | payer MEDICARE, SELFPAY ==
[2021-10-21] VITALS (12 sets, daily range): BP systolic 117–235; BP diastolic 60–90; PULSE 54–91; RESP 16–20; TEMP 36.2–37.1; O2SAT 91–98; BMI 35.2; BMI 33.6
--- NOTE | 2021-10-21 11:31 | XRR_ITS ---
PROCEDURE INFORMATION: Exam: XR Chest Exam date and time: 10/21/2021 11:37 AM Age: 86 years old Clinical indication: Dyspnea and shortness of breath TECHNIQUE: Imaging protocol: XR of the chest. Views: 2 views. COMPARISON: CR XR chest 1V portable [id number] 04/02/2020 3:31 PM FINDINGS: Lungs: Mild interstitial densities in the right perihilar region No consolidation. Pleural spaces: Unremarkable. No pleural effusion. No pneumothorax. Heart/Mediastinum: Unremarkable. No cardiomegaly. Bones/joints: Unremarkable. XR/XR chest 2V* [id number] IMPRESSION: 1. Faint interstitial densities right perihilar region. 2. Otherwise No acute findings.
--- NOTE | 2021-10-21 11:58 | ECG_ITS ---
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 [id number]
--- NOTE | 2021-10-21 11:59 | ED_ITS ---
HPI - General Adult General: Chief complaint: Shortness of Breath/Dyspnea Stated complaint: SOB/coughing up phelgm/runny nose/throat issue Time Seen by Provider: 10/21/21 11:42 History of Present Illness: Patient is an 86-year-old male with history of diabetes, hypertension, PAD who presents the emergency room for evaluation of exertional fatigue and dyspnea. Per family, patient is having difficulty walking can barely walk 10 feet without feeling short of breath. This has been going on since last Wednesday. Around the same time, patient also reports sinus congestion and was started on amoxicillin by his primary care provider. Patient denies any fever or chills, cough, diarrhea, melena or hematochezia. Patient denies any active chest pain. Patient denies any dyspnea at rest. Reports that his sinus rhythm is mildly improving. Patient also reports that his left arm ap pears to be swollen is not sure what is the cause of it. His primary care doctor thinks this may be a side effect of amlodipine. Patient has no leg pain but reports bilateral legs are swollen right greater than left. Onset: 1 week Duration:ongoing for 1 week Location:home Severity:moderate Associated symptoms: Reports dyspnea; Deny chest pain, nausea, rash, palpitations or vomiting Review of Systems Const: Denies: fever(s) or chills Eyes: Denies: change in vision ENMT: Reports: other (+nasal congestion); Denies: mouth pain Card: Denies: chest pain or palpitations Resp: Reports: dyspnea; Denies: non-productive cough GI: Denies: abdominal pain, nausea, vomiting or diarrhea : Denies: dysuria Musc: Denies: extremity pain Skin/Breast: Denies: rash or new lesions Neuro: Denies: weakness in extremities Psych: Reports: other (Normal mood) Sagar/Lymph: Denies: easy bruising PFSH ED PFSH: Medical History (Updated 10/21/21 @ 18:23 by Justice Hale MD) 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 Mother , IN HER 90'S Dementia ALZHEIMERS Social History Smoking and tobacco status: former smoker Alcohol intake: former Lives independently: Yes Housing: House Marital status: / Current occupational status: retired History of recent travel: No Physical Exam Const: COMMON NORMALS: alert HENMT: COMMON NORMALS: atraumatic HEAD & SCALP: atraumatic MOUTH: moist mucous membranes not abnormal OTHER: +no sinus tenderness to palpation Eye: COMMON NORMALS: EOMs intact bilaterally and conjunctivae normal CONJUNCTIVA: Yes conjunctivae normal Neck/C-Spine: COMMON NORMALS: full ROM and supple Resp: COMMON NORMALS: normal respiratory effort and clear to auscultation bilaterally AUSCULTATION: clear to auscultation bilaterally Cardio: COMMON NORMALS: regular rate RATE: regular rate GI: COMMON NORMALS: Soft to palpation and non-tender PALPATION: Yes Soft to palpation OTHER: No focal TTP. NO guarding rebound, guarding, rigidity. No CVA tenderness to percussion. Neg Islas/Neg McBurney's point tenderness, no suprabupic tenderness to palpation. Extremity: COMMON NORMALS: full ROM Neuro: SENSORIUM/ORIENTATION: Yes alert MOTOR EXAM: No Abnormal motor strength present and Other motor observations present (no focal motor deficits) Psych: COMMON NORMALS: speech normal SPEECH: Yes normal speech MOOD & AFFECT: Yes euthymic mood Course Vital Signs: Vital signs: Vital Signs Temperature 97.7 F 10/22/21 07:05 Pulse Rate 59 L 10/22/21 08:08 Respiratory Rate 17 10/22/21 08:08 Blood Pressure 177/72 10/22/21 07:05 Pulse Oximetry 94 10/22/21 08:08 [facility] - General Adult Medical Decision Making 86-year-old male with history of diabetes, hypertension presenting to the emergency room for concerns of exertional dyspnea and fatigue. On physical exam, patient has swelling of the lower extremities and left arm. Troponin of 61 initially pending repeat. EKG is nonischemic. Ultrasound of the L upper extremity and b/l lower extremities not showing signs of DVT. D-dimer appears to be elevated for age. Patient has allergies to contrast, patient will undergo VQ scan. Last cardiac evaluation was over 2 years ago. Given troponin 60 with for comparison with exertional dyspnea, patient will be admitted to hospital for further evaluation of ACS versus PE. Disposition: admission Lab Data : 10/22/21 06:28 10/22/21 06:28 Radiology Impressions Chest X-Ray 10/21/21 11:31 IMPRESSION: 1. Faint interstitial densities right perihilar region. 2. Otherwise No acute findings. Pulmonary Perfusion Imaging 10/21/21 13:46 IMPRESSION: Low probability pulmonary embolism. Chest CT 10/22/21 08:51 IMPRESSION: 1. Diffuse bilateral multilobar groundglass opacifications, greatest on the RIGHT. Most likely due to pneumonitis. 2. Very minimally increased in size hilar and mediastinal lymph nodes. Probably reactive. 3. Very small bilateral pleural effusions. Laboratory Results WBC 7.4 10^3/uL (4.0-10.0) 10/21/21 11:50 RBC 4.14 10^6/uL (4.1-5.3) 10/21/21 11:50 Hgb 11.9 g/dL (11.7-16.6) 10/21/21 11:50 Hct 36.7 % (42.0-52.0) L 10/21/21 11:50 MCV 88.6 fl (80-94) 10/21/21 11:50 MCH 28.7 pg (28.0-34.0) 10/21/21 11:50 MCHC 32.4 g/dL (30.0-36.0) 10/21/21 11:50 RDW 14.0 % (12.1-15.1) 10/21/21 11:50 Plt Count 201 10^3/cmm (130-400) 10/21/21 11:50 MPV 12.0 fL (7.4-10.4) H 10/21/21 11:50 Neut % (Auto) 79.4 % 10/21/21 11:50 Lymph % (Auto) 7.1 % 10/21/21 11:50 Mchenry % (Auto) 9.5 % 10/21/21 11:50 Eos % (Auto) 2.9 % 10/21/21 11:50 Baso % (Auto) 0.8 % 10/21/21 11:50 Neut # (Auto) 5.84 10^3/uL (1.8-7.7) 10/21/21 11:50 Lymph # (Auto) 0.5 10^3/uL (0.8-4.8) L 10/21/21 11:50 Mchenry # (Auto) 0.7 10^3/uL (0.2-0.9) 10/21/21 11:50 Eos # (Auto) 0.2 10^3/uL (0.0-0.8) 10/21/21 11:50 Baso # (Auto) 0.1 10^3/uL (0.0-0.1) 10/21/21 11:50 Nucleated RBC % (auto) 0 % 10/21/21 11:50 Nucleated RBCs # 0.0 /100WBC 10/21/21 11:50 D-Dimer 0.98 ug/mIFEU (0-0.59) H 10/21/21 12:32 Sodium 135 mmol/L (136-145) L 10/21/21 11:50 Potassium 4.3 mmol/L (3.5-5.1) 10/21/21 11:50 Chloride 101 mmol/L (98-107) 10/21/21 11:50 Carbon Dioxide 23 mmol/L (22-29) 10/21/21 11:50 Anion Gap 15.3 (5-19) 10/21/21 11:50 BUN 37 mg/dL (8-23) H 10/21/21 11:50 Creatinine 1.1 mg/dL (0.7-1.2) 10/21/21 11:50 GFR Calculation Not Reportable 10/21/21 11:50 Glucose 150 mg/dL (65-115) H 10/21/21 11:50 Calculated Osmolality 292 mOsm/kg (285-295) 10/21/21 11:50 Calcium 9.1 mg/dL (8.5-10.5) 10/21/21 11:50 Troponin T Baseline 61 ng/L (0-15) H 10/21/21 11:50 Troponin T 120 Minute 63.17 ng/L (0-15) H 10/21/21 14:27 Delta Troponin T 2.17 ABS# (0-10) 10/21/21 14:27 C-Reactive Protein 30.7 mg/L (0.0-4.9) H 10/21/21 11:50 NT-Pro-B Natriuret Pep 3837 pg/mL (0-450) H 10/21/21 11:50 Procalcitonin 0.05 ng/mL (0-0.5) 10/21/21 11:50 Nasal Influ A H1 2009 PCR Not detected (NOT DETECT) 10/21/21 11:50 Adenovirus (PCR) Not detected (NOT DETECT) 10/21/21 11:50 C. pneumoniae DNA (PCR) Not detected (NOT DETECT) 10/21/21 11:50 Coronavirus 229E (PCR) Not detected (NOT DETECT) 10/21/21 11:50 Human Metapneumovir PCR Not detected (NOT DETECT) 10/21/21 11:50 Influenza A (H1) PCR Not detected (NOT DETECT) 10/21/21 11:50 Influenza A (H3) PCR Not detected (NOT DETECT) 10/21/21 11:50 Influenza Type A (PCR) Not detected (NOT DETECT) 10/21/21 11:50 Influenza Type B (PCR) Not detected (NOT DETECT) 10/21/21 11:50 M. pneumoniae (PCR) Not detected (NOT DETECT) 10/21/21 11:50 Parainfluenza 1 (PCR) Not detected (NOT DETECT) 10/21/21 11:50 Parainfluenza 2 (PCR) Not detected (NOT DETECT) 10/21/21 11:50 Parainfluenza 3 (PCR) Not detected (NOT DETECT) 10/21/21 11:50 Parainfluenza 4 (PCR) Not detected (NOT DETECT) 10/21/21 11:50 RSV Type A (PCR) Not detected (NOT DETECT) 10/21/21 11:50 RSV Type B (PCR) Not detected (NOT DETECT) 10/21/21 11:50 Entero/Rhino (PCR) Not detected (NOT DETECT) 10/21/21 11:50 SARS-CoV-2 (PCR) Not detected (NOT DETECT) 10/21/21 11:50 Imaging Data Other Imaging: Radiologist's impression: [address] [address] Ultrasound Report Signed Patient: Arias Karimi Unit #: [id number] : 1935 Age/Sex: 86 / M ADM Date: 10/21/21 Loc: ER Room/Bed: Attending Dr: Ordering Provider/Ordering MD: Chandler Quiroz MD Date of Service: 10/21/21 Procedure(s): [id number] Accession Number(s): [id number] Report Number: [id number] ?Arias Karimi ?Age:? ? 86 ? ? Gender: ? ? M ?:? ? 1935 ?Exam Date: ? ? 10/21/2021 13:08 ?Ordering Phys: ? ? Chandler Quiroz? ?Technologist:? ? ? KB ?Exam Location:? ? ? [facility] [place] ?MRN:? ? [id number] ?Account Number: ? ? ? [id number] ?Indication:? ? ? LUE SWELLING AND PAIN ?HISTORY: ?Upper extremity swelling. Upper extremity pain. ?PROCEDURES: ?Venous duplex imaging was performed in only the left upper ?extremity. ?The following venous structures were evaluated: internal jugular ?vein, subclavian vein, axillary vein, and brachial veins. ?In addition, the basilic vein, cephalic vein, radial vein, and ?ulnar vein. ?Serial compression, augmentation maneuvers, and spectral Doppler ?flow evaluation were performed. ?FINDINGS: ?No evidence of deep vein thrombosis or superficial ?thrombophlebitis in the left upper extremity. ?CONCLUSIONS ?No left upper extremity DVT. ?Dr. Paige Molina DO ?(Electronically Signed) ?Final Date:? ? ? 21 October 2021 ? 14:45 [address] [address] Ultrasound Report Signed Patient: Arias Karimi Unit #: [id number] : 1935 Age/Sex: 86 / M ADM Date: 10/21/21 Loc: ER Room/Bed: Attending Dr: Ordering Provider/Ordering MD: Chandler Quiroz MD Date of Service: 10/21/21 Procedure(s): [place] [id number] Accession Number(s): [id number] Report Number: [id number] ?Arias Karimi ?Age:? ? 86 ? ? Gender: ? ? M ?:? ? 1935 ?Exam Date: ? ? 10/21/2021 13:00 ?Ordering Phys: ? ? Chandler Quiroz? ?Technologist:? ? ? KB ?Exam Location:? ? ? [facility] [place] ?MRN:? ? [id number] ?Account Number: ? ? ? [id number] ?Indication:? ? ? BLE PAIN AND SWELLING ?HISTORY: ?Lower extremity swelling. Lower extremity pain. ?PROCEDURES: ?Venous duplex imaging was performed in bilateral lower ?extremities. ?The following venous structures were evaluated: common femoral ?vein, profunda vein, proximal portion of the greater saphenous ?vein, superficial femoral vein, and the popliteal vein. ?In addition, the posterior tibial and peroneal trunk were ?evaluated. ?Serial compression, augmentation maneuvers, and spectral Doppler ?flow evaluation were performed. ?FINDINGS: ?Examination was technically limited due to body habitus. ?Normal 2-D Doppler and augmentation and compressibility ?throughout the lower extremity venous structures.? Additional ?imaging through the proximal calf veins also reveals no ?thrombus.? Limited evaluation of the greater saphenous vein is ?patent with no thrombus.. ?CONCLUSIONS ?No DVT bilateral lower extremities. ?Dr. Paige Molina DO ?(Electronically Signed) ?Final Date:? ? ? 21 October 2021 ? 14:46 S [address] [address] XRay Report Signed Patient: Arias Karimi Unit #: [id number] : 1935 Age/Sex: 86 / M ADM Date: 10/21/21 Loc: ER Room/Bed: Attending Dr: Ordering Provider/Ordering MD: Chandler Quiroz MD Date of Service: 10/21/21 Procedure(s): XR chest 2V* [id number] Accession Number(s): [id number] Report Number: [id number] PROCEDURE INFORMATION: Exam: XR Chest Exam date and time: 10/21/2021 11:37 AM Age: 86 years old Clinical indication: Dyspnea and shortness of breath TECHNIQUE: Imaging protocol: XR of the chest. Views: 2 views. COMPARISON: CR XR chest 1V portable [id number] 04/02/2020 3:31 PM FINDINGS: Lungs: Mild interstitial densities in the right perihilar region No consolidation. Pleural spaces: Unremarkable. No pleural effusion. No pneumothorax. Heart/Mediastinum: Unremarkable. No cardiomegaly. Bones/joints: Unremarkable. XR/XR chest 2V* [id number] IMPRESSION: 1. Faint interstitial densities right perihilar region. 2. Otherwise No acute findings. ? Dictated By: Fabian Dawson Signed By: Fabian Dawson Signed Date/Time: 10/21/21 1210 DD/ 1137 Discharge Plan Discharge Patient Disposition: Admitted As Inpatient Admit Provider: Justice Hale Clinical Impression: Exertional shortness of breath, Generalized weakness Condition: Stable Coding Level of Care Code ED Contact Acid Plant Operator for Chg 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
--- NOTE | 2021-10-21 12:02 | USCV_ITS ---
Arias Karimi Age: 86 Gender: M : 1935 Exam Date: 10/21/2021 13:08 Ordering Phys: Chandler Quiroz MD Technologist: NAVYA [place] [facility] [place]: LUE SWELLING AND PAIN HISTORY: Upper extremity swelling. Upper extremity pain. PROCEDURES: Venous duplex imaging was performed in only the left upper extremity. The following venous structures were evaluated: internal jugular vein, subclavian vein, axillary vein, and brachial veins. In addition, the basilic vein, cephalic vein, radial vein, and ulnar vein. Serial compression, augmentation maneuvers, and spectral Doppler flow evaluation were performed. FINDINGS: No evidence of deep vein thrombosis or superficial thrombophlebitis in the left upper extremity. CONCLUSIONS No left upper extremity DVT. Dr. Paige Molina DO (Electronically Signed) Final Date: 21 October 2021 14:45 S
--- NOTE | 2021-10-21 12:02 | USCV_ITS ---
Arias Karimi Age: 86 Gender: M : 1935 Exam Date: 10/21/2021 13:00 Ordering Phys: Chandler Quiroz MD Technologist: NAVYA [place]am [place] [facility] [place]ication: BLE PAIN AND SWELLING HISTORY: Lower extremity swelling. Lower extremity pain. PROCEDURES: Venous duplex imaging was performed in bilateral lower extremities. The following venous structures were evaluated: common femoral vein, profunda vein, proximal portion of the greater saphenous vein, superficial femoral vein, and the popliteal vein. In addition, the posterior tibial and peroneal trunk were evaluated. Serial compression, augmentation maneuvers, and spectral Doppler flow evaluation were performed. FINDINGS: Examination was technically limited due to body habitus. Normal 2-D Doppler and augmentation and compressibility throughout the lower extremity venous structures. Additional imaging through the proximal calf veins also reveals no thrombus. Limited evaluation of the greater saphenous vein is patent with no thrombus.. CONCLUSIONS No DVT bilateral lower extremities. Dr. Paige Molina DO (Electronically Signed) Final Date: 21 October 2021 14:46 S
[2021-10-21] MEDS: ipratropium-albuterol 3 mL Neb INHALATION ×3 (12:38)
[2021-10-21 13:00] LABS: D Dimer 0.98 ug/mIFEU (0-0.59)
[2021-10-21 13:06] LABS: Troponin(5th) Baseline 61 ng/L (0-15)
[2021-10-21 13:11] LABS: Procalcitonin 0.05 ng/mL (0-0.5)
[2021-10-21 13:21] LABS: Anion Gap 15.3 (5-19); Blood Urea Nitrogen 37 mg/dL (8-23); C Reactive Protein 30.7 mg/L (0.0-4.9); Calcium 9.1 mg/dL (8.5-10.5); Carbon Dioxide 23 mmol/L (22-29); Chloride 101 mmol/L (98-107); Glucose 150 mg/dL (65-115); Osmolality Calculated 292 mOsm/kg (285-295); Potassium 4.3 mmol/L (3.5-5.1); Sodium 135 mmol/L (136-145)
--- NOTE | 2021-10-21 13:46 | NM_ITS ---
WS: [id number] NUCLEAR MEDICINE VENTILATION/PERFUSION LUNG SCAN HISTORY: eval for pe COMPARISON: Chest radiograph 10/21/2021 TECHNIQUE: Ventilation: 32.6 mCi of Technetium 99 DTPA aerosol inhaled. Perfusion: 5.5 mCi of technetium 99m MAA IV. Heterogeneous ventilation. Marked deposition of the radionuclide in the LEFT hilum. Heart is enlarged . There is much better perfusion as compared to the ventilation. There is very mild heterogeneity but no wedge-shaped defects or unmatched defects are identified. NM/NM pul vent and perfus* [id number] IMPRESSION: Low probability pulmonary embolism.
--- NOTE | 2021-10-21 13:58 | ECG_ITS ---
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 Measurements Intervals Marty Rate: 54 P: [place]: QRS: 0 QRSD: 108 T: 42 QT: 461 QTc: 440 Interpretive Statements SUPRAVENTRICULAR BRADYCARDIA POSSIBLE ANTERIOR MYOCARDIAL INFARCTION , PROBABLY OLD [30 ms Q WAVE IN V3/V4, OR R < 0.2 mV IN V4] ABNORMAL RHYTHM ECG Compared to ECG 10/21/2021 11:59:21 Sinus bradycardia no longer present First degree AV block no longer present Myocardial infarct finding still present Electronically Signed On 10-22-2021 6:50:35 CDT by Emely Sears M.D. [email or web address]
[2021-10-21 14:03] LABS: Adenovirus Not Detected (NOT DETECT); Chlamydia Pneumoniae Not Detected (NOT DETECT); Coronavirus 229E,HKU1,NL63,OC4 Not Detected (NOT DETECT); Human Metapneumovirus Not Detected (NOT DETECT); Human Rhinovirus/Enterovirus Not Detected (NOT DETECT); Influenza A Not Detected (NOT DETECT); Influenza A H1 Not Detected (NOT DETECT); Influenza A H1-2009 Not Detected (NOT DETECT); Influenza A H3 Not Detected (NOT DETECT); Influenza B Not Detected (NOT DETECT); Mycoplasma Pneumoniae Not Detected (NOT DETECT); Parainfluenza Virus Type 1 Not Detected (NOT DETECT); Parainfluenza Virus Type 2 Not Detected (NOT DETECT); Parainfluenza Virus Type 3 Not Detected (NOT DETECT); Parainfluenza Virus Type 4 Not Detected (NOT DETECT); Respiratory Syncytial Virus A Not Detected (NOT DETECT); Respiratory Syncytial Virus B Not Detected (NOT DETECT); SARS-COV-2 Not Detected (NOT DETECT)
[2021-10-21 15:06] LABS: Troponin 5 2HR 63.17 ng/L (0-15)
[2021-10-21 15:11] LABS: Troponin 5 2HR Delta 2.17 ABS# (0-10)
[2021-10-21 15:42] LABS: Basophils # 0.1 10^3/uL (0.0-0.1); Basophils % 0.8 %; Eosinophils # 0.2 10^3/uL (0.0-0.8); Eosinophils % 2.9 %; Hematocrit 36.7 % (42.0-52.0); Hemoglobin 11.9 g/dL (11.7-16.6); Lymphocytes # 0.5 10^3/uL (0.8-4.8); Lymphocytes % 7.1 %; Mean Corpuscular HGB Conc 32.4 g/dL (30.0-36.0); Mean Corpuscular Hemoglobin 28.7 pg (28.0-34.0); Mean Corpuscular Volume 88.6 fl (80-94); Monocytes # 0.7 10^3/uL (0.2-0.9); Monocytes % 9.5 %; Neutrophils # 5.84 10^3/uL (1.8-7.7); Neutrophils % 79.4 %; Nucleated Red Blood Cells % 0 %; Platelet Count 201 10^3/cmm (130-400); Red Blood Count 4.14 10^6/uL (4.1-5.3); White Blood Count 7.4 10^3/uL (4.0-10.0)
--- NOTE | 2021-10-21 16:10 | PC.NURSE ---
Report called to Shikha, will transfer via stretcher to room 279.
[2021-10-21 16:19] LABS: Glucose Point of Care 129 mg/dL (70-110)
--- NOTE | 2021-10-21 17:04 | P.HP_ITS ---
Providers/Chief Complaint Admitting Physician: Justice Hale Primary Care Provider: Carlos Marques MD Chief Complaint: SOB/coughing up phelgm/runny nose/throat issue History of Present Illness Pleasant 86-year-old gentleman with history of TIA, PAD, hypertension, tremor and Parkinson's disease, history of orthostatic hypotension, brought for evaluation to ER by his family due to experiencing the last 4-5 days severe dyspnea on exertion. He was assessed with the complaints 2 days ago by his primary provider, started on amoxicillin due to bronchitis, with cough producti ve of some yellowish/green sputum. He was assessed with ambulation at the office as per his family, and his oxygen saturation did not decrease, however, he became very fatigued with exertion walking 30-40 feet. He has not had fever or chills. He denies headache, nausea vomiting or diarrhea. His blood pressure has been elevated at home, in the ER so far it has been fluctuating, sometimes getting up into 200s systolic, currently down to 117/70. He does have a chronic tremor more so on the right side which may be throwing off the blood pressure cuff as well. His family did notice swelling in both lower extremities but also upper. Right lower extremity is worse, as his left upper extremity. Duplex studies were obtained in ER which were negative for DVT. D-dimer was noted abnormal, 0.98, VQ scan was obtained with low probability of PE. Chest x-ray with noted faint interstitial densities in right perihilar region. Viral panel in ER negative including COVID-19. He does not have chest pain or pressure. He does not sleep flat on his back due to back issues. He follows with cardiology, and takes amlodipine, hydralazine for blood pressure control. His primidone and celecoxib were recently stopped to try to help with management of his blood pressures. His heart rates at home run in the high 50s/low 60s which is noted again in ER. Family report past episodes of TIAs where he would be briefly not responding well which would spontaneously resolve. This was previously evalu ated with echocardiogram and neck vessel imaging which showed nonsurgically significant carotid artery disease. Last echocardiogram was in May 2020, showed normal EF, grade 1 diastolic dysfunction, mild AVR. Review of Systems Const: Denies: fever(s), chills, body aches or malaise Eyes: Denies: change in vision, eye discomfort or eye redness ENMT: Denies: throat pain, oral sores or ear or mastoid pain Card: Reports: edema (LUE>RUE, RLE>LLE) and dyspnea on exertion; Denies: chest pain or syncope Resp: Reports: productive cough and change in phlegm color; Denies: hemoptysis GI: Denies: abdominal pain, nausea, vomiting, diarrhea, constipation, hematochezia or melena : Denies: flank pain, difficulty urinating, urinary frequency or hematuria Musc: Denies: back pain, joint swelling or joint redness Skin/Breast: Denies: rash or new lesions Neuro: Reports: other (Chronic tremor); Denies: headache(s), numbness in extremities, weakness in extremities, dizziness, confusion or seizure-like activity Endo: Denies: polyuria or polydipsia Sagar/Lymph: Denies: easy bleeding or tender lymph nodes All/Imm: Denies: urticaria or tongue swelling Medications/Allergies Home Medications Medication Instructions Recorded Confirmed Last Taken Type clonazepam 0.5 mg tablet 0.5 mg PO TID 08/14/19 10/21/21 10/21/21 History Lactobacillus acidophilus 1 1,000 mmu cells PO DAILY 05/09/20 10/21/21 10/21/21 History billion cell capsule (Probiotic Gold Acidophilus) ascorbic acid (vitamin C) 500 mg 1,000 mg PO DAILY cap 11/07/20 10/21/21 10/21/21 History capsule furosemide 20 mg tablet 20 mg PO PRN PRN tab 11/07/20 10/21/21 Unknown History glimepiride 4 mg tablet 4 mg PO BID tab 11/07/20 10/21/21 10/21/21 History potassium chloride 10 mEq 10 meq PO PRN PRN cap 11/07/20 10/21/21 Unknown History capsule,extended release propranolol 80 mg capsule,24 160 mg PO BID cap 11/07/20 10/21/21 10/21/21 History hr,extended release aspirin 325 mg tablet 325 mg PO DAILY #90 tab 01/02/21 10/21/21 10/21/21 Rx carbidopa 25 mg-levodopa 100 mg 1.5 tab PO TID tab 01/02/21 10/21/21 10/21/21 History tablet celecoxib 100 mg capsule (Celebrex) 100 mg PO BID 01/02/21 10/21/21 10/13/[address] WALKER 10/13/ methenamine hippurate 1 gram tablet See Rx Instructions .ROUTE 08/21/21 10/21/21 10/21/21 Rx .COMPLEX #60 tab amlodipine 5 mg tablet 5 mg PO BID #180 tab 10/02/21 10/21/21 10/21/21 Rx cyanocobalamin (vitamin B-12) 1,000 mcg PO DAILY 10/02/21 10/21/21 10/21/21 History 1,000 mcg capsule primidone 50 mg tablet 250 mg PO TID 10/02/21 10/21/21 10/13/21 History PT STATES DENISE 10/13/21 hydralazine 50 mg tablet 50 mg PO TID #300 tab 10/10/21 10/21/21 10/21/21 Rx diphenhydramine-phenylephrine 25 1 tab PO TID 10/21/21 10/21/21 10/20/21 History mg-10 mg tablet (Benadryl Allergy Plus Congestion) Allergies Allergy/AdvReac Type Severity Reaction Status Date / Time hydrochlorothiazide Allergy UNKNOWN Verified 10/21/21 12:40 iodine Allergy UNKNOWN Verified 10/21/21 12:40 lisinopril Allergy UNKNOWN Verified 10/21/21 12:40 shellfish derived Allergy Unresponsiv Verified 10/21/21 18:06 e PFSH Acute PFSH: Medical History (Updated 10/21/21 @ 18:23 by Justice Hale MD) 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 Mother , IN HER 90'S Dementia ALZHEIMERS Social History Smoking and tobacco status: former smoker Alcohol intake: former Lives independently: Yes Housing: House Marital status: / Current occupational status: retired History of recent travel: No Vitals/I&O/Wt Last Vital Signs Temp 97.6 F 10/21/21 12:07 Pulse 91 10/21/21 16:22 Resp 16 10/21/21 16:22 BP 117/70 10/21/21 16:22 Pulse Ox 93 10/21/21 16:22 Weight last 48 hrs Weight 117.934 kg Physical Exam Narrative: Family at bedside Const: COMMON NORMALS: alert GENERAL APPEARANCE: cooperative and frail appearing ORIENTATION/CONSCIOUSNESS: Yes awake HENMT: COMMON NORMALS: normocephalic, EAC's normal, Normal external nose present and moist oral mucous membranes HEAD & SCALP: normocephalic NOSE: Normal external nose present EXTERNAL AUDITORY CANAL: EAC's normal Neck/C-Spine: COMMON NORMALS: no meningeal signs Chest: CHEST: Yes Symmetrical chest wall rise Resp: COMMON NORMALS: clear to auscultation bilaterally AUSCULTATION: clear to auscultation bilaterally Cardio: COMMON NORMALS: regular rate, regular rhythm and No murmurs present (Cardio) RATE: regular rate and bradycardic RHYTHM: regular rhythm GI: COMMON NORMALS: Normal to inspection, nondistended, normoactive bowel sounds present, Soft to palpation and non-tender PALPATION: Yes Soft to palpation Extremity: GENERAL: Yes edema (2+ LLE, slightly worse on the right. 1+ arms, slightly worse on the left.) Neuro: COMMON NORMALS: moves all extremities SENSORIUM/ORIENTATION: Yes alert MENINGEAL SIGNS: Yes no meningeal signs OTHER: Right side resting tremor Psych: COMMON NORMALS: mental status grossly normal Skin: COMMON NORMALS: no wounds RASHES: no rashes Data : 10/22/21 06:28 10/22/21 06:28 A&P Assessment and plan (1) Exertional shortness of breath: Severe exertional limitation, getting exhausted up to 30-40 feet of ambulation. His son reports that this was attempted at PCPs office where his saturation reportedly did not decrease from mid 90s. At this time not entirely clear reason for exertion. He does not have chest pain or pressure. First troponin 61. EKG with some sinus bradycardia which appears unchanged from his home vitals in high 50s, low 60s, without suggestion of acute ischemia. Last TTE was 2 years ago with normal ejection fraction, mild MVR at the time. I do not hear new murmurs, however, we will assessed by TTE in addition to telemetry monitoring. We will assess orthostatics given he has Parkinson's disease is on Sinemet and a number of medications that can contribute to orthostasis including amlodipine, hydralazine. VQ scan with low probability of PE. No DVT noted in over extremities or left upper extremity. Chest x-ray with interstitial densities in the right perihilar region. He does appear to have bronchitis. Coughed up yellow-green sputum globule in ER. Was started on Augmentin by his primary provider, will continue, although otherwise does not appear to be septic. Viral panel was negative. Procalcitonin is not elevated. I do not believe his bronchitis would explain entirely his symptoms. Status: Acute (2) Anasarca: Lasix IV 20 mg to start. Monitor DAVEY, renal function. Additional assessment with TTE as above. Status: Acute (3) Acute bronchitis: With likely pneumonia. Some perihilar density noted on chest x-ray, without fever leukocytosis. Procalcitonin not elevated. Respiratory viral panel negative including COVID-19. Doxycycline. Mucinex. Flutter valve. I-S. Status: Acute Plan Parkinson's disease HTN DM2 with neuropathy: ssi while here. Consistent carb diet. PAD BPH History of TIA: Would discontinue celecoxib due to associated risk. Discussed with family. Attestations 2 Medical Necessity Statement*: Please in observation for additional assessment of severe exertional intolerance. Coding Level of Care Code Acute Test Boring Crew Chief for Matt 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 Diagnoses Exertional shortness of breath R06.02 Anasarca R60.1 Acute bronchitis J20.9
--- NOTE | 2021-10-21 17:28 | USCV_ITS ---
Transthoracic Echo Arias Karimi Age: 86 Gender: M : 1935 Exam Date: 10/21/2021 21:06 Ordering Phys: Justice Hale MD Technologist: Rohan Padilla [place]am Location[place] [facility] [place]: Severe UGALDE BP: / HR: 72 Rhythm: Sinus Technical Quality: Adequate MEASUREMENTS (Male / Female) Normal Values 2D ECHO LV Diastolic Diameter PLAX 4.0 cm 4.2 - 5.9 / 3.9 - 5.3 cm LV Systolic Diameter PLAX 2.6 cm IVS Diastolic Thickness 1.8 cm 0.6 - 1.0 / 0.6 - 0.9 cm IVS Systolic Thickness 2.0 cm LVPW Diastolic Thickness 2.5 cm 0.6 - 1.0 / 0.6 - 0.9 cm LVPW Systolic Thickness 2.6 cm LVOT Diameter 2.1 cm LV Ejection Fraction 2D Teich 65.6 % LV Ejection Fraction MOD 2C 77.2 % LV Ejection Fraction 2C AL 77.5 % LA Diameter 3.2 cm LA Width 3.9 cm LA Height 5.6 cm RA Width 4.3 cm RA Height 4.7 cm Aorta at Sinotubular Diameter 2.9 cm M-MODE Aortic Annulus Diameter 3.2 cm LA Ao Ratio MM 1.0 MV E Point Septal Separation 0.4 cm DOPPLER AV Peak Velocity 166.5 cm/s LVOT Peak Velocity 83.0 cm/s AV Area Cont Eq vti 2.6 cm squared AV Area Cont Eq pk 1.8 cm squared MV Peak Velocity 121.0 cm/s MV Area PHT 5.5 cm squared Mitral E to A Ratio 1.3 MV E' Velocity 63.0 cm/s Mitral E to MV E' Ratio 13.4 Mitral E to LV E' Lateral Ratio 12.1 Mitral E to LV E' Septal Ratio 14.9 TR Peak Velocity 235.0 cm/s TR Peak Gradient 22.1 mmHg TR Mean Velocity 319.7 cm/s TR Mean Gradient 45.4 mmHg TR Velocity Time Integral 173.2 cm Right Atrial Pressure 10.0 mmHg Pulmonary Artery Systolic Pressu 32.1 mmHg PV Peak Velocity 77.0 cm/s RV Acceleration Time 0.2 s RV Ejection Time 0.4 s RV AcT/ET 0.6 FINDINGS Left Ventricle Normal left ventricular size and systolic function, EF 73 %. No regional wall motion abnormalities. Right Ventricle The right ventricle is normal in size and function. Right Atrium The right atrium is normal in size. Left Atrium The left atrium is normal in size. Mitral Valve Mild mitral valve regurgitation. Aortic Valve Thickened aortic valve. Trace aortic valve regurgitation. Tricuspid Valve Moderate tricuspid valve regurgitation. Estimated pulmonary peak systolic pressure of 73 mmHg with a mean pressure of 45 mmHg Pulmonic Valve No gross abnormalities noted Pericardium Normal pericardium without effusion. Aorta Normal ascending aorta dimension. CONCLUSIONS Normal left ventricular size and systolic function, EF 73 %. No regional wall motion abnormalities. Thickened aortic valve. Trace aortic valve regurgitation. Mild mitral valve regurgitation. Moderate tricuspid valve regurgitation. Severe pulmonary hypertension with an estimated pulmonary peak systolic pressure of 73 mmHg with a mean pressure of 45 mmHg . There is no pericardial effusion. There are no intracardiac masses. Compared to the previous study from 06/03/2020, the pulmonary hypertension appears to be new Dr Nohemy Corbett MD [facility] WITH [facility] (Electronically Signed) Final Date: 22 October 2021 00:11 S
[2021-10-21 18:12] LABS: NT Pro B Type Natriuretic Pept 3837 pg/mL (0-450)
[2021-10-21] MEDS: enoxaparin 30 mg/0.3 mL Syringe SUBCUT (19:24)
[2021-10-21] MEDS: FUROsemide 10 mg/mL SDV 2mL 20 MG IVP (21:45)
[2021-10-21] MEDS: cloNIDine 0.1 mg Tablet 0.2 MG PO (21:45)
[2021-10-21] MEDS: CLONazepam 0.5 mg Tablet PO (21:45)
[2021-10-21] MEDS: hyDRALAzine 50 mg Tablet 100 MG PO (21:45)
[2021-10-21] MEDS: carbidopa-levodopa 25-100mg Tablet 1.5 EACH PO (21:45)
[2021-10-21] MEDS: insulin lispro 100 unit/1 mL SUBCUT (21:51)
[2021-10-21 22:14] LABS: Glucose Point of Care 178 mg/dL (70-110)
[2021-10-21] MEDS: FUROsemide 10 mg/mL SDV 4mL 40 MG IVP (23:21)
[2021-10-22] VITALS (9 sets, daily range): BP systolic 150–182; BP diastolic 56–80; PULSE 50–70; RESP 16–20; TEMP 36.3–36.8; O2SAT 93–94
[2021-10-22] MEDS: hyDRALAzine 20 mg/mL INJ 1 mL 10 MG IVP (01:08)
[2021-10-22] MEDS: famotidine 20 mg Tablet PO (01:59)
[2021-10-22] MEDS: acetaminophen 325 mg Tablet 650 MG PO (05:25)
[2021-10-22 06:41] LABS: Basophils # 0.1 10^3/uL (0.0-0.1); Basophils % 0.9 %; Eosinophils # 0.2 10^3/uL (0.0-0.8); Eosinophils % 2.3 %; Hematocrit 39.2 % (42.0-52.0); Hemoglobin 12.5 g/dL (11.7-16.6); Lymphocytes # 0.6 10^3/uL (0.8-4.8); Lymphocytes % 7.7 %; Mean Corpuscular HGB Conc 31.9 g/dL (30.0-36.0); Mean Corpuscular Hemoglobin 28.8 pg (28.0-34.0); Mean Corpuscular Volume 90.3 fl (80-94); Mean Platelet Volume 10.9 fL (7.4-10.4); Monocytes # 0.8 10^3/uL (0.2-0.9); Monocytes % 11.3 %; Neutrophils # 5.74 10^3/uL (1.8-7.7); Neutrophils % 77.3 %; Nucleated Red Blood Cells % 0 %; Platelet Count 198 10^3/cmm (130-400); Red Blood Count 4.34 10^6/uL (4.1-5.3); Red Cell Distribution Width 13.7 % (12.1-15.1); White Blood Count 7.4 10^3/uL (4.0-10.0)
[2021-10-22 07:04] LABS: Alanine Aminotransferase < 5 U/L (0-41); Albumin Level 3.4 g/dL (3.5-5.2); Alkaline Phosphatase 85 IU/L (40-130); Anion Gap 19.2 (5-19); Aspartate Amino Transferase 8 U/L (0-40); Blood Urea Nitrogen 34 mg/dL (8-23); Calcium 9.4 mg/dL (8.5-10.5); Carbon Dioxide 22 mmol/L (22-29); Chloride 102 mmol/L (98-107); Globulin 3.5 g/dL (1.3-4.6); Glucose 142 mg/dL (65-115); Osmolality Calculated 298 mOsm/kg (285-295); Potassium 4.2 mmol/L (3.5-5.1); Sodium 139 mmol/L (136-145); Total Bilirubin 0.4 mg/dL (0.15-1.2); Total Protein 6.9 g/dL (6.6-8.7)
[2021-10-22] MEDS: carbidopa-levodopa 25-100mg Tablet 1.5 EACH PO ×3 (08:38→20:53)
[2021-10-22] MEDS: doxycycline 100 mg Tablet PO ×2 (08:38→18:09)
[2021-10-22] MEDS: cyanocobalamin 1,000 mcg Tablet 1000 MCG PO (08:38)
[2021-10-22] MEDS: amlodipine 5 mg Tablet PO (08:38)
[2021-10-22] MEDS: lactobacillus 1 Tablet 1 TAB PO (08:38)
[2021-10-22] MEDS: CLONazepam 0.5 mg Tablet PO ×3 (08:38→20:54)
[2021-10-22] MEDS: aspirin 325 mg Tablet PO (08:39)
[2021-10-22] MEDS: FUROsemide 10 mg/mL SDV 2mL 20 MG IVP (08:39)
[2021-10-22] MEDS: glimepiride 2 mg Tablet 4 MG PO ×2 (08:39→18:09)
[2021-10-22] MEDS: guaiFENesin 600 mg Tablet 1200 MG PO ×2 (08:39→18:09)
[2021-10-22] MEDS: ascorbic acid 500 mg Tablet 1000 MG PO (08:39)
[2021-10-22] MEDS: hyDRALAzine 50 mg Tablet PO ×3 (08:40→20:53)
--- NOTE | 2021-10-22 08:51 | CT_ITS ---
WS: [id number] CT CHEST WITHOUT INTRAVENOUS CONTRAST HISTORY: UGALDE, question of infiltrates on CXR TECHNIQUE: Contiguous 5 mm axial imaging performed on the thorax. Coronal and sagittal reformats are submitted. All CT scans at [facility] use at least one of these dose optimization techniques: automated exposure control; mA and/or kV adjustment per patient size (includes targeted exams where dose is matched to clinical indication); or iterative reconstruction. CONTRAST: None DLP: 1142.79 mGy.cm COMPARISON: 10/22/2019 chest radiograph Lungs and central airway: Diffuse bilateral multifocal and multi lobar areas of groundglass attenuati on. Greatest in the RIGHT upper and RIGHT middle lobe. No focal area of dense consolidation or mass. Pleura: Small layering bilateral pleural effusions. There is a small amount of fluid along the fissur es also. Heart and pericardium: Moderately enlarged heart. No effusion. Coronary artery atherosclerosis. Mediastinum and paulina: Small mediastinal and hilar lymph nodes. These lymph nodes are very slightly in creased in size as compared to 10/27/2012 with the largest RIGHT paratracheal measuring 11 mm in short axis diameter. Vessels: Moderate atherosclerosis within the aorta. Normal size pulmonary artery. Chest wall and lower neck: Mild bilateral gynecomastia. Upper abdomen: Marked distention of the stomach with air, fluid and food products. May be due to rece nt meal or partial outlet obstruction or gastroparesis. Osseous structures: Advanced degenerative changes throughout the thoracic spine. Anterior bridging os teophytes. Severe degenerative changes at the glenohumeral joints. CT/CT chest wo con [id number] IMPRESSION: 1. Diffuse bilateral multilobar groundglass opacifications, greatest on the RI GHT. Most likely due to pneumonitis. 2. Very minimally increased in size hilar and mediastinal lymph nodes. Probabl y reactive. 3. Very small bilateral pleural effusions.
[2021-10-22 11:30] LABS: Glucose Point of Care 203 mg/dL (70-110)
[2021-10-22 12:13] LABS: Urine Appearance Clear (CLEAR); Urine Color Yellow (Yellow); pH Urine 5 (5-7)
[2021-10-22 12:14] LABS: Add Urine Microscopic? YES; Bilirubin Urine Neg (Negative); Blood Urine 2+ (Negative); Glucose Urine UA Norm (Normal); Ketones Urine Negative (Negative); Leukocyte Esterase Urine Negative (Negative); Nitrate Urine Negative (Negative); Protein Urine 2+ (Negative); Urobilinogen Urine Norm (Negative)
[2021-10-22 12:20] LABS: RBC Urine 0-4 /hpf (0-2); Renal Epithelial Cells Urine N /hpf; Squamous Epithelial Cell Urine 0-4 /hpf (0-5); WBC Urine 0-4 /hpf (0-5)
[2021-10-22 12:21] LABS: Fine Granular Casts Urine 0-4 /lpf; Hyaline Casts Urine 0-4 /lpf; Mucus Urine 1+ /hpf
[2021-10-22 12:23] LABS: Add Urine Culture? No
[2021-10-22] MEDS: insulin lispro 100 unit/1 mL SUBCUT ×2 (13:08→20:53)
--- NOTE | 2021-10-22 14:51 | PM.PN ---
Subjective Subjective: Reports he could not sleep at night. Reports he was having some urinary urgency, had some difficulty urinating, some burning with urination. Had to get up multiple times. This morning he is still having cough. Vitals/I&O/Wt Last Vital Signs Temp 97.5 F L 10/22/21 12:00 Pulse 50 L 10/22/21 12:00 Resp 16 10/22/21 12:00 BP 150/56 10/22/21 12:00 Pulse Ox 94 10/22/21 12:00 10/21/21 10/22/21 10/22/21 22:59 06:59 14:59 Intake Total 100 / 100 50 / 150 240 / 240 Output Total 650 / 650 300 / 300 Balance 100 / 100 -600 / -500 -60 / -60 Weight last 48 hrs Weight 112.576 kg Weight 117.934 kg Physical Exam Const: COMMON NORMALS: alert GENERAL APPEARANCE: cooperative and frail appearing ORIENTATION/CONSCIOUSNESS: Yes awake HENMT: COMMON NORMALS: normocephalic, EAC's normal, Normal external nose present and moist oral mucous membranes HEAD & SCALP: normocephalic NOSE: Normal external nose present EXTERNAL AUDITORY CANAL: EAC's normal Neck/C-Spine: COMMON NORMALS: no meningeal signs Chest: CHEST: Yes Symmetrical chest wall rise Resp: COMMON NORMALS: clear to auscultation bilaterally AUSCULTATION: clear to auscultation bilaterally Cardio: COMMON NORMALS: regular rate, regular rhythm and No murmurs present (Cardio) RATE: regular rate and bradycardic RHYTHM: regular rhythm GI: COMMON NORMALS: Normal to inspection, nondistended, normoactive bowel sounds present, Soft to palpation and non-tender PALPATION: Yes Soft to palpation Extremity: GENERAL: Yes edema (2+ LLE, slightly worse on the right. 1+ arms, slightly worse on the left.) Neuro: COMMON NORMALS: moves all extremities SENSORIUM/ORIENTATION: Yes alert MENINGEAL SIGNS: Yes no meningeal signs OTHER: Right side resting tremor Psych: COMMON NORMALS: mental status grossly normal Skin: COMMON NORMALS: no wounds RASHES: no rashes Data : 10/22/21 06:28 10/22/21 06:28 A&P Assessment and plan (1) Exertional shortness of breath: Discussed with him noted findings of orthostatic hypotension. As well is noted new finding of pulmonary hypertension, possibly severe based on TTE findings. Given orthostasis we will hold further amlodipine. Add DANDRE inhibitor to assist in control of blood pressure hopefully minimizing orthostatic symptoms. Hydralazine may also not be a good choice, although overall options may be limited given the bradycardia. Pulmonary hypertension will need additional evaluation, will refer to cardiology, pulmonology. Additionally given persistent cough, question of right perihilar infiltrates additionally assessed by CT chest. Noted to have diffuse bilateral multilobar groundglass opacifications greatest on the right. Most likely pneumonitis. Minimally increased in size mediastinal and hilar lymph nodes, probably reactive. Very small bilateral pleural effusions. Discussed results with him. Respiratory viral panel was negative on presentation. Possibly virus not assessed by PCR. Possibly other cause of pneumonitis. Given unclear etiology of groundglass opacification, severe exertional limitation by dyspnea we will additionally assess by swallow study for possible recurrent aspiration. Severe exertional limitation, getting exhausted up to 30-40 feet of ambulation. His son reports that this was attempted at PCPs office where his saturation reportedly did not decrease from mid 90s. At this time not entirely clear reason for exertion. He does not have chest pain or pressure. First troponin 61. EKG with some sinus bradycardia which appears unchanged from his home vitals in high 50s, low 60s, without suggestion of acute ischemia. Last TTE was 2 years ago with normal ejection fraction, mild MVR at the time. I do not hear new murmurs, however, we will assessed by TTE in addition to telemetry monitoring. We will assess orthostatics given he has Parkinson's disease is on Sinemet and a number of medications that can contribute to orthostasis including amlodipine, hydralazine. VQ scan with low probability of PE. No DVT noted in over extremities or left upper extremity. Additionally acute bronchitis. Status: Acute (2) Orthostatic hypotension: As above Status: Acute (3) Pulmonary hypertension: As above Status: Acute (4) Difficult or painful urination: Reports could not sleep at night, with urinary urgency, difficulty initiating urination, slow stream. Reports had to wake up multiple times to go urinate. Requested UA, does not appear suggestive of UTI. Start finasteride. Status: Acute (5) Anasarca: For now continue Lasix IV 20 mg for possible acute diastolic CHF. Monitor DAVEY, renal function. EF 73%. Mild MVR. Moderate TVR. Noted severe pulmonary hypertension. Status: Acute (6) Acute bronchitis: Was started on doxycycline. Mucinex. Pulmonary toilet. CT chest with diffuse bilateral multilobar groundglass opacifications, greatest on the right. Likely pneumonitis. Assess for aspiration. Procalcitonin not elevated. Respiratory viral panel negative including COVID-19. Status: Acute Plan Parkinson's disease HTN DM2 with neuropathy: ssi while here. Consistent carb diet. PAD BPH History of TIA: Would discontinue celecoxib due to associated risk. Discussed with family. Attestations Medical Necessity Statement*: Continue hospitalization for additional assessment of severe progressed exertional limitation/dyspnea, pneumonitis, orthostatic hypotension in setting of poorly controlled hypertension and Parkinson's disease, new finding of pulmonary hypertension. Coding Level of Care Code Acute Systems Support Specialist for Chg Fwd Diagnoses Exertional shortness of breath R06.02 Anasarca R60.1 Acute bronchitis J20.9 Pulmonary hypertension I27.20 Orthostatic hypotension I95.1 Difficult or painful urination R30.0
[2021-10-22 17:12] LABS: Glucose Point of Care 118 mg/dL (70-110)
--- NOTE | 2021-10-22 19:41 | PC.NURSE ---
Report to Belia RIVERO at this time.
[2021-10-22] MEDS: finasteride 5 mg Tablet PO (20:54)
[2021-10-22 21:02] LABS: Glucose Point of Care 155 mg/dL (70-110)
[2021-10-22 21:02] LABS: Glucose Point of Care 191 mg/dL (70-110)
[2021-10-23] VITALS (7 sets, daily range): BP systolic 167–191; BP diastolic 78–86; PULSE 65–81; RESP 16–21; TEMP 36.4–36.8; O2SAT 94–96
[2021-10-23 06:06] LABS: Basophils # 0.1 10^3/uL (0.0-0.1); Basophils % 1.1 %; Eosinophils # 0.2 10^3/uL (0.0-0.8); Eosinophils % 4.2 %; Hematocrit 37.3 % (42.0-52.0); Hemoglobin 11.7 g/dL (11.7-16.6); Lymphocytes # 0.6 10^3/uL (0.8-4.8); Lymphocytes % 10.5 %; Mean Corpuscular HGB Conc 31.4 g/dL (30.0-36.0); Mean Corpuscular Hemoglobin 28.3 pg (28.0-34.0); Mean Corpuscular Volume 90.1 fl (80-94); Mean Platelet Volume 11.1 fL (7.4-10.4); Monocytes # 0.7 10^3/uL (0.2-0.9); Monocytes % 12.9 %; Neutrophils # 3.85 10^3/uL (1.8-7.7); Neutrophils % 71.1 %; Nucleated Red Blood Cells % 0 %; Platelet Count 173 10^3/cmm (130-400); Red Blood Count 4.14 10^6/uL (4.1-5.3); Red Cell Distribution Width 13.6 % (12.1-15.1); White Blood Count 5.4 10^3/uL (4.0-10.0)
[2021-10-23 06:14] LABS: Glucose Point of Care 115 mg/dL (70-110)
[2021-10-23 06:30] LABS: Alanine Aminotransferase < 5 U/L (0-41); Albumin Level 3.3 g/dL (3.5-5.2); Alkaline Phosphatase 80 IU/L (40-130); Blood Urea Nitrogen 35 mg/dL (8-23); Carbon Dioxide 24 mmol/L (22-29); Chloride 99 mmol/L (98-107); Globulin 2.5 g/dL (1.3-4.6); Glucose 98 mg/dL (65-115); Osmolality Calculated 286 mOsm/kg (285-295); Sodium 134 mmol/L (136-145); Total Bilirubin 0.2 mg/dL (0.15-1.2); Total Protein 5.8 g/dL (6.6-8.7)
[2021-10-23 06:31] LABS: Anion Gap 15.2 (5-19); Aspartate Amino Transferase 12 U/L (0-40); Potassium 4.2 mmol/L (3.5-5.1)
--- NOTE | 2021-10-23 08:00 | FL_ITS ---
WS: [id number] Modified barium swallow, 10/23/2021 Clinical Data: Oropharyngeal dysphagia Comparison: None. Fluoroscopy time: 3min [id number] # of spot films: 1 Findings: The patient showed premature spillage during the oral phase. There is minimal residue in the vallecul a. The pharyngeal phase showed frequent coating of the mucosa which did not clear. No aspiration or p enetration was seen. There is an osteophyte at the C6-C7 level which may interfere with the material entering the proximal esophagus. The barium tablet did pass into the esophagus but did not clearly en ter the stomach during the examination. FL/FL barium swallow modifd [id number] Impression: 1. Premature spillage during the oral phase. 2. Pharyngeal phase showed coating of the hypopharynx
[2021-10-23] MEDS: lactobacillus 1 Tablet 1 TAB PO (08:01)
[2021-10-23] MEDS: CLONazepam 0.5 mg Tablet PO ×3 (08:01→21:02)
[2021-10-23] MEDS: doxycycline 100 mg Tablet PO ×2 (08:01→18:13)
[2021-10-23] MEDS: cyanocobalamin 1,000 mcg Tablet 1000 MCG PO (08:01)
[2021-10-23] MEDS: aspirin 325 mg Tablet PO (08:02)
[2021-10-23] MEDS: carbidopa-levodopa 25-100mg Tablet 1.5 EACH PO ×3 (08:02→21:01)
[2021-10-23] MEDS: ascorbic acid 500 mg Tablet 1000 MG PO (08:02)
[2021-10-23] MEDS: FUROsemide 10 mg/mL SDV 2mL 20 MG IVP (08:02)
[2021-10-23] MEDS: guaiFENesin 600 mg Tablet 1200 MG PO ×2 (08:02→18:13)
[2021-10-23] MEDS: hyDRALAzine 50 mg Tablet PO ×2 (08:02→14:56)
[2021-10-23] MEDS: glimepiride 2 mg Tablet 4 MG PO ×2 (08:02→18:12)
[2021-10-23] MEDS: hyDRALAzine 20 mg/mL INJ 1 mL 5 MG IVP (08:53)
--- NOTE | 2021-10-23 10:06 | US_ITS ---
WS: [id number] TESTICULAR ULTRASOUND HISTORY: pain, swelling COMPARISON: 04/25/2020 TECHNIQUE: Real-time and color Doppler imaging or utilized to perform a testicular ultrasound. Right testicle: 3.4 cm x 2.5 cm x 2.5 cm. Normal size and echogenicity. No mass or torsion. Normal color Doppler is present throughout. Systolic and diastolic velocities are both present. Small complex hydrocele. Right epididymis: Normal epididymis with no increased vascularity. Left testicle: 4.4 cm x 3.1 cm x 3.3 cm. Normal sized testicle with heterogeneity. Similar to the prior study. No orchitis. Normal color Doppler is present throughout. Systolic and diastolic velocities are both present. No significant hydrocele. Left epididymis: Normal epididymis with no increased vascularity. There is a small cyst measuring 6 x 4 x 5 mm posterior to the LEFT testicle. This may be a tunica alb uginea cyst or related to the epididymis. US/US scrotum [id number] IMPRESSION: 1. No testicular mass or torsion. 2. No orchitis. 3. Mild postinflammatory changes LEFT testicle.
--- NOTE | 2021-10-23 11:05 | PC.CHAP ---
Pastoral Care Encounter/Spiritual Assessment Type of Contact [] Declined electronic imaging system operator visit [] Patient/Family/Request visit [] Outpatient visit [x] Follow-up visit [] Physician referral [] Code/Alert [] Routine visit [] Staff referral [] Actively dying [] Patient sleeping [] Family support [] [] Out of room [] Palliative care [] [] Receiving care in room [] Pre-surgical visit [] Trauma [] Long length of stay [] ICU visit [z] Other: in surgery Relational/Emotional Strength [] Patient feels connected with others/family/visitors/staff [] Distress [] Loneliness/isolation [] Abandonment Spirituality of Patient [] Person of Yenifer [] Attends Hoahaoism of their Yenifer [] Believes in Prayer [] Reads Bible or Zoroastrian materials [] There are Spiritual issues to be addressed Carding Supervisor Interventions [] Prayer [] Active listening [] Non-anxious presence [] Spiritual/emotional support [] Crisis/trauma care [] Spiritual counseling [] Bereavement support [] Provided bereavement packet [] Provided Bible/devotional materials [] Provided toy/stuffed animal, coloring book to patient or family member [] Provided Communion [] Anointing/[place] [] Salvation [] Completed spiritual assessment [] Other: Impact on Illness or Injury [] Angry [] Fearful [] Anxious [] Often cries [] Exhaustion [] Unable to work [] Unable to attend pentecostal [] Unable to walk/stand [] Unable to read [] Unable to drive [] Unable to eat/drink [] Unable to sleep [] Unable to be with family [] Patient intubated [] Other: Summary in surgery Time spent with patient 5 mins
[2021-10-23 12:39] LABS: Glucose Point of Care 163 mg/dL (70-110)
[2021-10-23] MEDS: insulin lispro 100 unit/1 mL SUBCUT ×3 (13:02→21:18)
--- NOTE | 2021-10-23 16:11 | PC.NURSE ---
Patient blood pressure has been anywhere from 199/89 to 95/58 today, MD kept aware and is being closely monitored with tele. Patient went down for barrium swallow. No pain noted. Patient has been using bathroom to go the bathroom due to not being able to pee in a urinal. Patient needs help eating. Will continue to monitor and give report to night nurse.
[2021-10-23 17:22] LABS: Glucose Point of Care 165 mg/dL (70-110)
[2021-10-23] MEDS: primidone 50 mg Tablet 100 MG PO ×2 (18:13→21:01)
[2021-10-23] MEDS: enoxaparin 30 mg/0.3 mL Syringe SUBCUT (18:14)
[2021-10-23] MEDS: finasteride 5 mg Tablet PO (21:02)
[2021-10-23 21:11] LABS: Glucose Point of Care 185 mg/dL (70-110)
--- NOTE | 2021-10-23 21:54 | P.PN_ITS ---
Subjective Subjective: Blood pressure very elevated this morning, up to 230 systolic. Received hydralazine, blood pressure still above 200, so given additional small dose IV hydralazine 5 mg. Subsequently getting up to use the commode, reported feeling unwell, ringing in his ears. Blood pressure noted decreasing. [place]ordero bsequently blood pressures 160s-170s systolic. Still some ringing in his ears. Discussed findings so far with him and his family including findings on CT of the chest, pending additional assessment for possible aspiration, finding of orthostatic hypotension, severe pulmonary hypertension. Family requested we resume his propranolol which they are bringing in for him tonight. Discussed also regarding primidone, and it appears that he was taking 250 mg 3 times daily which was discontinued abruptly. Discussed that cannot exclude that some of his symptoms may be secondary to withdrawal from the medication, although he has not had seizure-like activity. Discussed resuming medication at a lower dose for now, continuing discontinuation efforts with taper. He also states is having persistent symptoms of tenderness in his left testicle which bothers him when he sits up or repositions. Vitals/I&O/Wt Last Vital Signs Temp 97.5 F L 10/23/21 20:00 Pulse 81 10/23/21 20:00 Resp 18 10/23/21 20:00 BP 175/82 10/23/21 20:00 Pulse Ox 95 10/23/21 20:00 10/23/21 10/23/21 10/23/21 06:59 14:59 22:59 Intake Total 600 / 1240 240 / 240 240 / 480 Output Total 450 / 450 Balance 600 / 940 -210 / -210 240 / 30 Weight last 48 hrs Weight 116.709 kg Physical Exam Narrative: Family at bedside Const: COMMON NORMALS: alert GENERAL APPEARANCE: cooperative and frail appearing ORIENTATION/CONSCIOUSNESS: Yes awake HENMT: COMMON NORMALS: normocephalic, EAC's normal, Normal external nose present and moist oral mucous membranes HEAD & SCALP: normocephalic NOSE: Normal external nose present EXTERNAL AUDITORY CANAL: EAC's normal Neck/C-Spine: COMMON NORMALS: no meningeal signs Chest: CHEST: Yes Symmetrical chest wall rise Resp: COMMON NORMALS: clear to auscultation bilaterally AUSCULTATION: clear to auscultation bilaterally Cardio: COMMON NORMALS: regular rate, regular rhythm and No murmurs present (Cardio) RATE: regular rate and bradycardic RHYTHM: regular rhythm GI: COMMON NORMALS: Normal to inspection, nondistended, normoactive bowel sounds present, Soft to palpation and non-tender PALPATION: Yes Soft to palpation Extremity: GENERAL: Yes edema (Resolving) Neuro: COMMON NORMALS: moves all extremities SENSORIUM/ORIENTATION: Yes alert MENINGEAL SIGNS: Yes no meningeal signs OTHER: Right side resting tremor Psych: COMMON NORMALS: mental status grossly normal Skin: COMMON NORMALS: no wounds RASHES: no rashes Data : 10/23/21 05:52 10/23/21 05:52 A&P Assessment and plan (1) Exertional shortness of breath: Discussed with him and his son regarding orthostatic hypotension, as well as very elevated blood pressure this morning, labile blood pressures. Discussed also regarding finding of pneumonitis on CT chest. Discussed additional assessment for possible aspiration with modified barium swallow. Discussed possible atypical pneumonia, although this is probably less likely. We will request bacterial antigens. Change antibiotic to Levaquin. Discussed possibly severe pulmonary hypertension as assessed by TTE, which would benefit from further assessment, including possibly assessment of vasoreactivity. Pulmonary hypertension will need additional evaluation, will refer to cardiology, pulmonology. He was seeing Dr. Viki COREAS. Discussed also bronchitis, with persistent productive cough with yellowish sputum. We will request sputum culture. Severe exertional limitation, getting exhausted with just getting up and around the bed from what we are seeing here. VQ scan with low probability of PE. No DVT noted in over extremities or left upper extremity. Status: Acute (2) Orthostatic hypotension: Stopped amlodipine, stop hydralazine. He is resumed on propranolol. Will add A RB tomorrow depending on blood pressures. Status: Acute (3) Pulmonary hypertension: As above Status: Acute (4) Difficult or painful urination: So far no trouble urinating, but complaining of pain in left testicle. Assessed by ultrasound. Reports could not sleep at night, with urinary urgency, difficulty initiating urination, slow stream. Reports had to wake up multiple times to go urinate. Requested UA, does not appear suggestive of UTI. Start finasteride. Status: Acute (5) Anasarca: Improving. For now continue Lasix IV 20 mg for possible acute diastolic CHF. Monitor DAVEY, renal function. EF 73%. Mild MVR. Moderate TVR. Noted severe pulmonary hypertension. Status: Acute (6) Acute bronchitis: Antibiotic changed to Levaquin. Collect sputum culture. Mucinex. Pulmonary toilet. CT chest with diffuse bilateral multilobar groundglass opacifications, greatest on the right. Likely pneumonitis. Assess for aspiration. Procalcitonin not elevated. Respiratory viral panel negative including COVID- 19. Status: Acute Plan Ringing in ears: Reports some ringing in his ears, may be secondary to orthostatic blood pressures, blood pressure fluctuation. His primidone was discontinued about a week ago abruptly. He has had no seizure like activity, although the discontinuation was rather sudden. Discussed with them will resume at lower dose for now. Continue efforts to discontinue with a taper. Parkinson's disease HTN DM2 with neuropathy: ssi while here. Consistent carb diet. PAD BPH History of TIA: Would discontinue celecoxib due to associated risk. Discussed with family. Attestations Medical Necessity Statement*: Continue admission for further assessment management of severe exertional intolerance, poorly controlled hypertension with labile blood pressures, orthostatic hypotension, for this is management of pneumonitis, bronchitis and Of advanced age. Coding Level of Care Code Acute Missing Persons Investigator for [facility] Diagnoses Exertional shortness of breath R06.02 Orthostatic hypotension I95.1 Pulmonary hypertension I27.20 Difficult or painful urination R30.0 Anasarca R60.1 Acute bronchitis J20.9
[2021-10-24] VITALS (11 sets, daily range): BP systolic 145–210; BP diastolic 72–89; PULSE 56–74; RESP 16–19; TEMP 36.4–37.1; O2SAT 94–97
[2021-10-24 05:23] LABS: Basophils % 0.7 %; Eosinophils # 0.2 10^3/uL (0.0-0.8); Hematocrit 36.1 % (42.0-52.0); Hemoglobin 11.6 g/dL (11.7-16.6); Lymphocytes # 0.8 10^3/uL (0.8-4.8); Lymphocytes % 13.3 %; Mean Corpuscular HGB Conc 32.1 g/dL (30.0-36.0); Mean Corpuscular Hemoglobin 28.5 pg (28.0-34.0); Mean Corpuscular Volume 88.7 fl (80-94); Monocytes # 0.8 10^3/uL (0.2-0.9); Monocytes % 13.6 %; Neutrophils # 3.89 10^3/uL (1.8-7.7); Neutrophils % 68.1 %; Nucleated Red Blood Cells % 0 %; Platelet Count 204 10^3/cmm (130-400); Red Blood Count 4.07 10^6/uL (4.1-5.3); Red Cell Distribution Width 13.6 % (12.1-15.1); White Blood Count 5.7 10^3/uL (4.0-10.0)
[2021-10-24] MEDS: levoFLOXacin 750 mg Tablet PO (05:26)
[2021-10-24 05:42] LABS: Alanine Aminotransferase < 5 U/L (0-41); Albumin Level 3.2 g/dL (3.5-5.2); Alkaline Phosphatase 73 IU/L (40-130); Anion Gap 16.2 (5-19); Aspartate Amino Transferase 11 U/L (0-40); Blood Urea Nitrogen 39 mg/dL (8-23); Calcium 8.7 mg/dL (8.5-10.5); Carbon Dioxide 23 mmol/L (22-29); Chloride 101 mmol/L (98-107); Creatinine Clr Calc Pharmacy 62.3979; Globulin 3.1 g/dL (1.3-4.6); Glucose 66 mg/dL (65-115); Osmolality Calculated 290 mOsm/kg (285-295); Potassium 4.2 mmol/L (3.5-5.1); Sodium 136 mmol/L (136-145); Total Bilirubin 0.3 mg/dL (0.15-1.2); Total Protein 6.3 g/dL (6.6-8.7)
[2021-10-24 06:56] LABS: Glucose Point of Care 61 mg/dL (70-110)
[2021-10-24] MEDS: lactobacillus 1 Tablet 1 TAB PO (08:55)
[2021-10-24] MEDS: ascorbic acid 500 mg Tablet 1000 MG PO (08:55)
[2021-10-24] MEDS: primidone 50 mg Tablet 100 MG PO ×3 (08:55→20:31)
[2021-10-24] MEDS: carbidopa-levodopa 25-100mg Tablet 1.5 EACH PO ×3 (08:56→20:31)
[2021-10-24] MEDS: CLONazepam 0.5 mg Tablet PO ×3 (08:56→20:31)
[2021-10-24] MEDS: aspirin 325 mg Tablet PO (08:56)
[2021-10-24] MEDS: cyanocobalamin 1,000 mcg Tablet 1000 MCG PO (08:56)
[2021-10-24] MEDS: guaiFENesin 600 mg Tablet 1200 MG PO ×2 (08:56→18:02)
[2021-10-24 11:04] LABS: Glucose Point of Care 89 mg/dL (70-110)
[2021-10-24 11:04] LABS: Glucose Point of Care 94 mg/dL (70-110)
--- NOTE | 2021-10-24 15:25 | PM.PN ---
Subjective Subjective: Feels slightly better. Reports slightly better able to tolerate exertion. No ringing in his ears. No chest pain or pressure. Vitals/I&O/Wt Last Vital Signs Temp 98.6 F 10/24/21 06:57 Pulse 61 10/24/21 15:13 Resp 16 10/24/21 11:32 BP 145/72 10/24/21 11:32 Pulse Ox 96 10/24/21 11:32 10/24/21 10/24/21 10/24/21 06:59 14:59 22:59 Intake Total 200 / 680 580 / 580 Balance 200 / 230 580 / 580 Weight last 48 hrs Weight 116.709 kg Physical Exam Narrative: Daughter and family at bedside Const: COMMON NORMALS: alert GENERAL APPEARANCE: cooperative and frail appearing ORIENTATION/CONSCIOUSNESS: Yes awake HENMT: COMMON NORMALS: normocephalic, EAC's normal, Normal external nose present and moist oral mucous membranes HEAD & SCALP: normocephalic NOSE: Normal external nose present EXTERNAL AUDITORY CANAL: EAC's normal Neck/C-Spine: COMMON NORMALS: no meningeal signs Chest: CHEST: Yes Symmetrical chest wall rise Resp: COMMON NORMALS: clear to auscultation bilaterally AUSCULTATION: clear to auscultation bilaterally Cardio: COMMON NORMALS: regular rate, regular rhythm and No murmurs present (Cardio) RATE: regular rate and bradycardic RHYTHM: regular rhythm GI: COMMON NORMALS: Normal to inspection, nondistended, normoactive bowel sounds present, Soft to palpation and non-tender PALPATION: Yes Soft to palpation Extremity: GENERAL: Yes edema (Resolving) Neuro: COMMON NORMALS: moves all extremities SENSORIUM/ORIENTATION: Yes alert MENINGEAL SIGNS: Yes no meningeal signs OTHER: Resting tremor Psych: COMMON NORMALS: mental status grossly normal Skin: COMMON NORMALS: no wounds RASHES: no rashes Data : 10/24/21 05:11 10/24/21 05:11 Micro: Microbiology 10/23/21 09:30 Gram Stain - Final Sputum - Expectorated Sputum A&P Assessment and plan (1) Exertional shortness of breath: He is doing slightly better today. Discussed with him and his daughter regarding orthostatic hypotension, labile hypertension. Discussed also regarding finding of pneumonitis on CT chest. Discussed additional assessment for possible aspiration with modified barium swallow with finding of premature spillage during oral phase, pharyngeal phase with coating of the hypopharynx. ST evaluation requested. Discussed possible atypical pneumonia, although this is probably less likely. Requested bacterial antigens. Antibiotic was changed to Levaquin. Continue. Discussed possibly severe pulmonary hypertension as assessed by TTE, which would benefit from further assessment, including possibly assessment of vasoreactivity. Pulmonary hypertension will need additional evaluation, will refer to cardiology, pulmonology. He was seeing Dr. Viki COREAS. Discussed also bronchitis, with persistent productive cough with yellowish sputum. Requested sputum culture. Severe exertional limitation, getting exhausted with just getting up and around the bed from what we are seeing here. VQ scan with low probability of PE. No DVT noted in over extremities or left upper extremity. Status: Acute (2) Orthostatic hypotension: Stopped amlodipine, stop hydralazine. Family are to bring his propranolol. Discussed consideration of ARB, although blood pressure is better. Status: Acute (3) Pulmonary hypertension: As above Status: Acute (4) Difficult or painful urination: So far no trouble urinating, but complaining of pain in left testicle. Assessed by ultrasound. Mild residual postinflammatory changes in the left testicle. Discussed with him and family to follow-up with urology in office. Continue finasteride. Status: Acute (5) Anasarca: Creatinine bumped up to 1.1. Edema improved. BUN with some increased to 39. Discussed with family regarding infusion of albumin. Hold further diuretic for now. For now continue Lasix IV 20 mg for possible acute diastolic CHF. Monitor DAVEY, renal function. EF 73%. Mild MVR. Moderate TVR. Noted severe pulmonary hypertension. Status: Acute (6) Acute bronchitis: Antibiotic changed to Levaquin. Collect sputum culture. Mucinex. Pulmonary toilet. CT chest with diffuse bilateral multilobar groundglass opacifications, greatest on the right. Likely pneumonitis. Assess for aspiration. Procalcitonin not elevated. Respiratory viral panel negative including COVID-19. Status: Acute Plan Ringing in ears: Resolved. Reports some ringing in his ears, may be secondary to orthostatic blood pressures, blood pressure fluctuation. His primidone was discontinued about a week ago abruptly. He has had no seizure like activity, although the discontinuation was rather sudden. Discussed with them will resume at lower dose for now. Continue efforts to discontinue with a taper. Parkinson's disease HTN DM2 with neuropathy: ssi while here. Consistent carb diet. PAD BPH History of TIA: Would discontinue celecoxib due to associated risk. Discussed with family. Attestations Medical Necessity Statement*: Continue admission for assessment of management of severe exertional intolerance, optimization of hypertension control with labile blood pressure, orthostatic hypotension, bronchitis, pneumonitis, with possible aspiration, severe pulmonary hypertension. Coding Level of Care Code Acute Manager Supply for [facility] 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 Diagnoses Exertional shortness of breath R06.02 Orthostatic hypotension I95.1 Pulmonary hypertension I27.20 Difficult or painful urination R30.0 Anasarca R60.1 Acute bronchitis J20.9
--- NOTE | 2021-10-24 15:26 | PC.NURSE ---
Patient is reporting feeling much better today. Blood pressure and heart rate have improved since starting home medication. Patient worked with PT. Urinating in the toilet. Visitors at bedside throughout the shift and is helping nurse feed patient. Will continue to monitor and give report to night nurse.
[2021-10-24 17:09] LABS: Glucose Point of Care 95 mg/dL (70-110)
[2021-10-24] MEDS: enoxaparin 30 mg/0.3 mL Syringe SUBCUT (18:03)
[2021-10-24] MEDS: finasteride 5 mg Tablet PO (20:32)
[2021-10-24] MEDS: hyDRALAzine 20 mg/mL INJ 1 mL 10 MG IVP (20:36)
[2021-10-24 21:56] LABS: Glucose Point of Care 126 mg/dL (70-110)
[2021-10-25] VITALS (11 sets, daily range): BP systolic 136–203; BP diastolic 64–95; PULSE 48–113; RESP 16–21; TEMP 36.4–37; O2SAT 93–96
[2021-10-25] MEDS: levoFLOXacin 750 mg Tablet PO (05:43)
[2021-10-25 05:47] LABS: Basophils % 0.7 %; Eosinophils # 0.2 10^3/uL (0.0-0.8); Eosinophils % 3.9 %; Hemoglobin 11.6 g/dL (11.7-16.6); Lymphocytes # 0.9 10^3/uL (0.8-4.8); Lymphocytes % 14.6 %; Mean Corpuscular HGB Conc 32.2 g/dL (30.0-36.0); Mean Corpuscular Hemoglobin 28.4 pg (28.0-34.0); Mean Platelet Volume 10.8 fL (7.4-10.4); Monocytes # 0.7 10^3/uL (0.2-0.9); Monocytes % 12.2 %; Neutrophils # 4.01 10^3/uL (1.8-7.7); Neutrophils % 68.3 %; Nucleated Red Blood Cells % 0 %; Platelet Count 203 10^3/cmm (130-400); Red Blood Count 4.09 10^6/uL (4.1-5.3); Red Cell Distribution Width 13.6 % (12.1-15.1); White Blood Count 5.9 10^3/uL (4.0-10.0)
[2021-10-25 06:08] LABS: Alanine Aminotransferase < 5 U/L (0-41); Albumin Level 3.9 g/dL (3.5-5.2); Alkaline Phosphatase 73 IU/L (40-130); Anion Gap 15.2 (5-19); Aspartate Amino Transferase 15 U/L (0-40); Blood Urea Nitrogen 33 mg/dL (8-23); Calcium 8.4 mg/dL (8.5-10.5); Carbon Dioxide 23 mmol/L (22-29); Chloride 98 mmol/L (98-107); Creatinine Clr Calc Pharmacy 62.3979; Globulin 2.2 g/dL (1.3-4.6); Glucose 111 mg/dL (65-115); Osmolality Calculated 282 mOsm/kg (285-295); Potassium 4.2 mmol/L (3.5-5.1); Sodium 132 mmol/L (136-145); Thyroid Stimulating Hormone 3.33 uIU/mL (0.27-4.20); Total Bilirubin 0.2 mg/dL (0.15-1.2); Total Protein 6.1 g/dL (6.6-8.7)
[2021-10-25 06:47] LABS: Glucose Point of Care 89 mg/dL (70-110)
--- NOTE | 2021-10-25 08:47 | ECG_ITS ---
[facility] Test Date: 2021-10-25 Pat Name: Arias Karimi Department: Room: 279 Gender: Male [employer] Estate [employer] Manager: : [id number] Requested By: Justice Hale Order Number: [id number] Jose MD: Emely Sears M.D. Measurements Intervals [place] Rate: P: MI: QRS: QRSD: T: QT: QTc: Interpretive Statements SINUS BRADYCARDIA POSSIBLE ANTERIOR TX, PROBABLY OLD ATYPICAL ECG WARNING: DATA QUALITY MAY AFFECT INTERPRETATION Compared to ECG 10/21/2021 13:51:41 Myocardial infarct finding no longer present Electronically Signed On 10-25-2021 15:05:58 CDT by Emely Sears M.D. [email or web address]
[2021-10-25] MEDS: CLONazepam 0.5 mg Tablet PO ×3 (09:11→20:46)
[2021-10-25] MEDS: primidone 50 mg Tablet 100 MG PO ×3 (09:11→20:46)
[2021-10-25] MEDS: lactobacillus 1 Tablet 1 TAB PO (09:11)
[2021-10-25] MEDS: cyanocobalamin 1,000 mcg Tablet 1000 MCG PO (09:11)
[2021-10-25] MEDS: ascorbic acid 500 mg Tablet 1000 MG PO (09:11)
[2021-10-25] MEDS: carbidopa-levodopa 25-100mg Tablet 1.5 EACH PO ×3 (09:11→20:46)
[2021-10-25] MEDS: guaiFENesin 600 mg Tablet 1200 MG PO ×2 (09:12→17:18)
[2021-10-25] MEDS: aspirin 325 mg Tablet PO (09:12)
[2021-10-25] MEDS: hyDRALAzine 20 mg/mL INJ 1 mL 2.5 MG IVP (09:12)
[2021-10-25] MEDS: losartan 50 mg Tablet 25 MG PO (09:17)
[2021-10-25] MEDS: pantoprazole DR 40 mg Tablet PO (09:17)
[2021-10-25 09:18] LABS: Troponin T (5th) Once 32 ng/L (0-15)
--- NOTE | 2021-10-25 10:42 | PC.SOCIAL ---
Pg 2 IMM Explained to pt & daughter Pg 2 IMM. No questions voiced. Provided pt a copy. Initialed, dated, & timed a copy & placed in chart.
[2021-10-25 11:48] LABS: Glucose Point of Care 185 mg/dL (70-110)
[2021-10-25] MEDS: insulin lispro 100 unit/1 mL SUBCUT ×2 (12:06→21:35)
[2021-10-25 13:29] LABS: Procalcitonin 0.06 ng/mL (0-0.5)
--- NOTE | 2021-10-25 16:22 | PC.NURSE ---
Patient blood pressure was very elevated this morning with the systolic being in the 200s. Patient was having ringing in his ears. After some blood pressure medications patient BP was 150s/60s. Patient rested most of the afternoon. Urine sample sent. No pain noted. Bowel movement this AM. Patient sat in chair for a little bit before lunch. Will continue to monitor and give report to night nurse.
[2021-10-25] MEDS: enoxaparin 30 mg/0.3 mL Syringe SUBCUT (17:19)
[2021-10-25 17:55] LABS: Glucose Point of Care 120 mg/dL (70-110)
[2021-10-25] MEDS: finasteride 5 mg Tablet PO (20:46)
--- NOTE | 2021-10-25 23:03 | P.PN_ITS ---
Subjective Subjective: Yesterday he states he had a better day, he got up and walked to the restroom. However, this morning feeling very unwell. Blood pressure very elevated up to 240 systolic. Ringing in his ears. This morning also experienced severe heartburn. He is having difficulty today getting to the restroom. Having a hard time holding the urinal with his tremor. Agreeable for temporary Beatty catheter. Vitals/I&O/Wt Last Vital Signs Temp 97.6 F 10/25/21 20:00 Pulse 57 L 10/25/21 20:00 Resp 17 10/25/21 20:00 BP 184/76 10/25/21 20:00 Pulse Ox 96 10/25/21 20:00 10/25/21 10/25/21 10/26/21 14:59 22:59 06:59 Intake Total 360 / 360 Balance 360 / 360 Physical Exam Narrative: Daughter at bedside Const: COMMON NORMALS: alert GENERAL APPEARANCE: cooperative and frail appearing ORIENTATION/CONSCIOUSNESS: Yes awake HENMT: COMMON NORMALS: normocephalic, EAC's normal, Normal external nose present and moist oral mucous membranes HEAD & SCALP: normocephalic NOSE: Normal external nose present EXTERNAL AUDITORY CANAL: EAC's normal Neck/C-Spine: COMMON NORMALS: no meningeal signs Chest: CHEST: Yes Symmetrical chest wall rise Resp: COMMON NORMALS: clear to auscultation bilaterally AUSCULTATION: clear to auscultation bilaterally Cardio: COMMON NORMALS: regular rate, regular rhythm and No murmurs present (Cardio) RATE: regular rate and bradycardic RHYTHM: regular rhythm GI: COMMON NORMALS: Normal to inspection, nondistended, normoactive bowel sounds present, Soft to palpation and non-tender PALPATION: Yes Soft to palpation Extremity: GENERAL: Yes edema (Resolving) Neuro: COMMON NORMALS: moves all extremities SENSORIUM/ORIENTATION: Yes alert MENINGEAL SIGNS: Yes no meningeal signs OTHER: Resting tremor Psych: COMMON NORMALS: mental status grossly normal Skin: COMMON NORMALS: no wounds RASHES: no rashes Data : 10/25/21 05:30 10/25/21 05:30 Micro: Microbiology 10/23/21 11:20 Bacterial Antigens - Final Urine,Clean Catch 10/23/21 11:20 Legionella Urinary Antigen - Final Urine,Clean Catch 10/23/21 09:30 Gram Stain - Final Sputum - Expectorated Sputum Sputum Culture - Preliminary A&P Assessment and plan (1) Exertional shortness of breath: This morning she was feeling much worse. Weak, with ringing in his ears, also severe heartburn. Followed-up EKG, troponin, without significant changes to indicate cardiac ischemia. Started on PPI. Blood pressure very elevated this morning up to 240 systolic. Given small dose of IV hydralazine, also started on losartan, continued on propranolol. TSH was checked and okay. Will check B12, folic acid, he is also at risk of B6 deficiency with Sinemet. Check level. Continue optimization of control very high blood pressures in the setting also of orthostatic hypotension. Continue aspiration precautions. On Levaquin Rare gram-positive rods on sputum culture. Few mixed peg on day 1. Follow-up culture. Urine bacterial antigens negative. Procalcitonin is negative. In case no growth on culture consider discontinuation of antibiotic. Discussed possibly severe pulmonary hypertension as assessed by TTE, which would benefit from further assessment, including possibly assessment of vasoreactivity. Pulmonary hypertension will need additional evaluation, will refer to cardiology, pulmonology. He was seeing Dr. Viki COREAS. Severe exertional limitation, getting exhausted with just getting up and around the bed from what we are seeing here. Unable to hold a urinal due to tremor. Place Beatty for now for monitoring of I&O. VQ scan with low probability of PE. No DVT noted in over extremities or left upper extremity. Status: Acute (2) Orthostatic hypotension: Stopped amlodipine, stop hydralazine. Started losartan. Continue propranolol. Status: Acute (3) Pulmonary hypertension: As above Status: Acute (4) Difficult or painful urination: So far no trouble urinating, but complaining of pain in left testicle. Assessed by ultrasound. Mild residual postinflammatory changes in the left testicle. Discussed with him and family to follow-up with urology in office. Continue finasteride. Status: Acute (5) Anasarca: Persistent edema, reassess renal function, and if remaining steady likely resume diuretic again in the morning. EF 73%. Mild MVR. Moderate TVR. Noted severe pulmonary hypertension. Status: Acute (6) Acute bronchitis: Antibiotic changed to Levaquin. Collect sputum culture. Mucinex. Pulmonary toilet. CT chest with diffuse bilateral multilobar groundglass opacifications, greatest on the right. Likely pneumonitis. Assess for aspiration. Procalcitonin not elevated. Respiratory viral panel negative including COVID- 19. Status: Acute Plan Ringing in ears: Resolved. Reports some ringing in his ears, may be secondary to orthostatic blood pressures, blood pressure fluctuation. His primidone was discontinued about a week ago abruptly. He has had no seizure like activity, although the discontinuation was rather sudden. Discussed with them will resume at lower dose for now. Continue efforts to discontinue with a taper. Parkinson's disease HTN DM2 with neuropathy: ssi while here. Consistent carb diet. PAD BPH History of TIA: Would discontinue celecoxib due to associated risk. Discussed with family. Attestations Medical Necessity Statement*: Continue admission for assessment management of continued severe exertional limitation, difficult to control labile hypertension with intermittently very elevated blood pressures. Coding Level of Care Code Acute Child Welfare Social Worker for [facility] Fwd Diagnoses Exertional shortness of breath R06.02 Orthostatic hypotension I95.1 Pulmonary hypertension I27.20 Difficult or painful urination R30.0 Anasarca R60.1 Acute bronchitis J20.9
[2021-10-26] VITALS (9 sets, daily range): BP systolic 119–195; BP diastolic 67–104; PULSE 47–68; RESP 16–18; TEMP 36.3–36.8; O2SAT 95–99
[2021-10-26] MEDS: hyDRALAzine 20 mg/mL INJ 1 mL 10 MG IVP ×2 (00:25→12:37)
[2021-10-26 05:33] LABS: Basophils % 0.7 %; Eosinophils # 0.2 10^3/uL (0.0-0.8); Eosinophils % 4.2 %; Lymphocytes # 0.7 10^3/uL (0.8-4.8); Lymphocytes % 11.7 %; Mean Corpuscular HGB Conc 31.4 g/dL (30.0-36.0); Mean Corpuscular Hemoglobin 28.2 pg (28.0-34.0); Mean Corpuscular Volume 89.7 fl (80-94); Mean Platelet Volume 10.7 fL (7.4-10.4); Monocytes # 0.7 10^3/uL (0.2-0.9); Monocytes % 12.8 %; Neutrophils # 3.88 10^3/uL (1.8-7.7); Neutrophils % 70.1 %; Nucleated Red Blood Cells % 0 %; Platelet Count 166 10^3/cmm (130-400); Red Cell Distribution Width 13.7 % (12.1-15.1); White Blood Count 5.5 10^3/uL (4.0-10.0)
[2021-10-26 05:53] LABS: Alanine Aminotransferase < 5 U/L (0-41); Albumin Level 3.5 g/dL (3.5-5.2); Alkaline Phosphatase 63 IU/L (40-130); Anion Gap 14.3 (5-19); Aspartate Amino Transferase 13 U/L (0-40); Blood Urea Nitrogen 29 mg/dL (8-23); Calcium 8.1 mg/dL (8.5-10.5); Carbon Dioxide 24 mmol/L (22-29); Chloride 101 mmol/L (98-107); Glucose 99 mg/dL (65-115); Osmolality Calculated 286 mOsm/kg (285-295); Potassium 4.3 mmol/L (3.5-5.1); Sodium 135 mmol/L (136-145); Total Bilirubin 0.2 mg/dL (0.15-1.2); Total Protein 5.5 g/dL (6.6-8.7)
[2021-10-26 06:04] LABS: Folate Level 10.8 ng/mL (4.5-32.2)
[2021-10-26] MEDS: levoFLOXacin 750 mg Tablet PO (06:45)
[2021-10-26 06:50] LABS: Vitamin B12 591 pg/mL (232-1245)
[2021-10-26] MEDS: carbidopa-levodopa 25-100mg Tablet 1.5 EACH PO ×3 (09:12→21:00)
[2021-10-26] MEDS: lactobacillus 1 Tablet 1 TAB PO (09:13)
[2021-10-26] MEDS: pantoprazole DR 40 mg Tablet PO (09:13)
[2021-10-26] MEDS: guaiFENesin 600 mg Tablet 1200 MG PO ×2 (09:13→17:33)
[2021-10-26] MEDS: CLONazepam 0.5 mg Tablet PO ×3 (09:13→21:00)
[2021-10-26] MEDS: ascorbic acid 500 mg Tablet 1000 MG PO (09:13)
[2021-10-26] MEDS: losartan 50 mg Tablet 25 MG PO (09:13)
[2021-10-26] MEDS: aspirin 325 mg Tablet PO (09:13)
[2021-10-26] MEDS: cyanocobalamin 1,000 mcg Tablet 1000 MCG PO (09:13)
[2021-10-26] MEDS: primidone 50 mg Tablet 100 MG PO ×2 (09:13→17:34)
[2021-10-26] MEDS: polyethylene glycol 3350 Pkt 17 gm PO (09:13)
[2021-10-26 10:54] LABS: Glucose Point of Care 95 mg/dL (70-110)
[2021-10-26 10:54] LABS: Glucose Point of Care 152 mg/dL (70-110)
[2021-10-26 11:21] LABS: Glucose Point of Care 147 mg/dL (70-110)
[2021-10-26] MEDS: fluticasone nasal spray 16gm Btl 1 SPRAY NASAL ×2 (12:37→17:34)
[2021-10-26] MEDS: enoxaparin 30 mg/0.3 mL Syringe SUBCUT (17:33)
[2021-10-26 17:34] LABS: Glucose Point of Care 129 mg/dL (70-110)
--- NOTE | 2021-10-26 20:39 | PM.PN ---
Subjective Subjective: He is still feeling generally weak. Some cough, still productive of purulent appearing beige sputum. Still some ringing in his ears. Denies otalgia. Last night states blood pressure again went up to 200s, and he could not sleep again, again feeling unwell. Reports felt also burning sensation in extremities, including bottoms of his feet. Vitals/I&O/Wt Last Vital Signs Temp 97.4 F L 10/26/21 19:47 Pulse 53 L 10/26/21 19:47 Resp 16 10/26/21 19:47 BP 131/72 10/26/21 19:47 Pulse Ox 95 10/26/21 19:47 10/26/21 10/26/21 10/26/21 06:59 14:59 22:59 Intake Total 480 / 480 240 / 720 Output Total 400 / 400 1550 / 1550 Balance -400 / 80 480 / 480 -1310 / -830 Physical Exam Narrative: Daughter at bedside Const: COMMON NORMALS: alert GENERAL APPEARANCE: cooperative and frail appearing ORIENTATION/CONSCIOUSNESS: Yes awake OTHER: Reclined in bed. HENMT: COMMON NORMALS: normocephalic, EAC's normal, Normal external nose present and moist oral mucous membranes HEAD & SCALP: normocephalic NOSE: Normal external nose present EXTERNAL AUDITORY CANAL: EAC's normal Neck/C-Spine: COMMON NORMALS: no meningeal signs Chest: CHEST: Yes Symmetrical chest wall rise Resp: COMMON NORMALS: clear to auscultation bilaterally AUSCULTATION: clear to auscultation bilaterally Cardio: COMMON NORMALS: regular rate, regular rhythm and No murmurs present (Cardio) RATE: regular rate and bradycardic RHYTHM: regular rhythm GI: COMMON NORMALS: Normal to inspection, nondistended, normoactive bowel sounds present, Soft to palpation and non-tender PALPATION: Yes Soft to palpation Extremity: GENERAL: Yes edema (1-2+) Neuro: COMMON NORMALS: moves all extremities SENSORIUM/ORIENTATION: Yes alert MENINGEAL SIGNS: Yes no meningeal signs OTHER: Resting tremor Psych: COMMON NORMALS: mental status grossly normal Skin: COMMON NORMALS: no wounds RASHES: no rashes Urinary Catheter Management: Beatty: Cath Placed During This Visit: yes Reason for Continuing Indwelling Catheter: Acute Urinary Retention or Obstruction Urinary Catheter Date of Insertion: 10/25/21 Urinary Catheter Time of Insertion: 23:30 Data : 10/26/21 05:10 10/26/21 05:10 Micro: Microbiology 10/23/21 09:30 Gram Stain - Final Sputum - Expectorated Sputum Sputum Culture - Final A&P Assessment and plan (1) Exertional shortness of breath: Blood pressures are in a little bit better with losartan, although last night again elevated. He does have some worsening edema, tonight we will give him a dose of Lasix 40 mg IV, for now we will not yet raise losartan. Monitor blood pressures, reassess renal function. He is still having cough productive of purulent appearing beige sputum. For now continue to biotic additional day today. He does have seasonal allergies, and today is having some lacrimation, runny nose, added Flonase. We will add some budesonide as well given continued productive cough. Last night also placed Beatty catheter, and found Isabel retaining urine. Keep Beatty in place for now. Continue finasteride. Still feeling generally weak, still ringing in his ears. Discussed again possibility of withdrawal from primidone. As he is having persistent symptoms we will go up some on the dose to 150 mg 3 times daily with goal for continued slow taper off after acute symptoms resolved. B12 and folic acid are normal. At risk of B6 deficiency with Sinemet and has been having some symptoms of intermittent burning of the soles of his feet, B6 level sent. It is a send out, so for now we will start replacement. TSH was checked and okay. Will check B12, folic acid, he is also at risk of B6 deficiency with Sinemet. Check level. Continue optimization of control very high blood pressures in the setting also of orthostatic hypotension. Continue aspiration precautions. Was switched to Levaquin. Continue for now. Rare gram-positive rods on sputum culture. Follow-up culture. Urine bacterial antigens negative. Procalcitonin is negative. In case no growth on culture consider discontinuation of antibiotic. Discussed possibly severe pulmonary hypertension as assessed by TTE, which would benefit from further assessment, including possibly assessment of vasoreactivity. Pulmonary hypertension will need additional evaluation, will refer to cardiology, pulmonology. He was seeing Dr. Viki COREAS. Severe exertional limitation, getting exhausted with just getting up and around the bed from what we are seeing here. Unable to hold a urinal due to tremor. Place Beatty for now for monitoring of I&O. VQ scan with low probability of PE. No DVT noted in over extremities or left upper extremity. Status: Acute (2) Orthostatic hypotension: Stopped amlodipine, stop hydralazine. Started losartan. Continue propranolol. Would avoid midodrine due to episodes of severe hypotension and with bradycardia. Status: Acute (3) Pulmonary hypertension: As above Status: Acute (4) Difficult or painful urination: So far no trouble urinating, but complaining of pain in left testicle. Assessed by ultrasound. Mild residual postinflammatory changes in the left testicle. Discussed with him and family to follow-up with urology in office. With urinary retention. Beatty catheter placed. Maintain for now. Continue finasteride. Status: Acute (5) Anasarca: Worsened edema noted. Repeat dose of Lasix 40 mg IV today. Persistent edema, reassess renal function, and if remaining steady likely resume diuretic again in the morning. EF 73%. Mild MVR. Moderate TVR. Noted severe pulmonary hypertension. Status: Acute (6) Acute bronchitis: Antibiotic changed to Levaquin. Collect sputum culture. Mucinex. Pulmonary toilet. CT chest with diffuse bilateral multilobar groundglass opacifications, greatest on the right. Likely pneumonitis. Assess for aspiration. Procalcitonin not elevated. Respiratory viral panel negative including COVID-19. Status: Acute Plan Ringing in ears: Still persistent. Appears to be bilateral. Perhaps milder. Unclear etiology. Thought to be metabolic, possibly withdrawal from primidone. Possibly B6 deficiency, level sent. Started on pyridoxine. Reports some ringing in his ears, may be secondary to orthostatic blood pressures, blood pressure fluctuation. His primidone was discontinued about a week ago abruptly. He has had no seizure like activity, although the discontinuation was rather sudden. Resumed at lower dose for now. Continue efforts to discontinue with a taper. Parkinson's disease HTN DM2 with neuropathy: ssi while here. Consistent carb diet. PAD BPH History of TIA: Would discontinue celecoxib due to associated risk. Discussed with family. Attestations Medical Necessity Statement*: Continue admission for assessment of management of severe exertional intolerance, optimization of control of hypertension, in the setting of orthostatic hypotension with Parkinson's disease, bronchitis, with underlying pulmonary hypertension, in a gentleman of advanced age. Disposition planning and arrangements. Coding Level of Care Code Acute Servomechanism Assembler for Chg Fwd Diagnoses Exertional shortness of breath R06.02 Orthostatic hypotension I95.1 Pulmonary hypertension I27.20 Difficult or painful urination R30.0 Anasarca R60.1 Acute bronchitis J20.9
[2021-10-26] MEDS: finasteride 5 mg Tablet PO (21:00)
[2021-10-26] MEDS: insulin lispro 100 unit/1 mL SUBCUT (21:01)
[2021-10-26] MEDS: primidone 50 mg Tablet 150 MG PO (21:01)
[2021-10-26] MEDS: budesonide 0.5 mg/2 mL Neb 0.25 MG INHALATION (21:22)
[2021-10-26] MEDS: FUROsemide 10 mg/mL SDV 4mL 40 MG IVP (22:15)
[2021-10-27] VITALS (20 sets, daily range): BP systolic 87–190; BP diastolic 46–81; PULSE 52–64; RESP 15–18; TEMP 36.3–36.8; O2SAT 93–97
[2021-10-27] MEDS: hyDRALAzine 20 mg/mL INJ 1 mL 10 MG IVP (00:07)
[2021-10-27 04:59] LABS: Basophils % 0.7 %; Eosinophils # 0.2 10^3/uL (0.0-0.8); Eosinophils % 3.6 %; Hematocrit 36.9 % (42.0-52.0); Hemoglobin 11.5 g/dL (11.7-16.6); Lymphocytes # 0.5 10^3/uL (0.8-4.8); Lymphocytes % 9.3 %; Mean Corpuscular HGB Conc 31.2 g/dL (30.0-36.0); Mean Corpuscular Hemoglobin 27.4 pg (28.0-34.0); Mean Corpuscular Volume 88.1 fl (80-94); Mean Platelet Volume 11.1 fL (7.4-10.4); Monocytes # 0.7 10^3/uL (0.2-0.9); Monocytes % 11.5 %; Neutrophils # 4.34 10^3/uL (1.8-7.7); Neutrophils % 74.6 %; Nucleated Red Blood Cells % 0 %; Platelet Count 167 10^3/cmm (130-400); Red Blood Count 4.19 10^6/uL (4.1-5.3); Red Cell Distribution Width 13.5 % (12.1-15.1); White Blood Count 5.8 10^3/uL (4.0-10.0)
[2021-10-27 05:13] LABS: Alanine Aminotransferase < 5 U/L (0-41); Albumin Level 3.4 g/dL (3.5-5.2); Alkaline Phosphatase 73 IU/L (40-130); Anion Gap 14.4 (5-19); Aspartate Amino Transferase 13 U/L (0-40); Blood Urea Nitrogen 33 mg/dL (8-23); Calcium 9.1 mg/dL (8.5-10.5); Carbon Dioxide 25 mmol/L (22-29); Chloride 99 mmol/L (98-107); Creatinine Clr Calc Pharmacy 62.3979; Globulin 2.9 g/dL (1.3-4.6); Glucose 135 mg/dL (65-115); Osmolality Calculated 287 mOsm/kg (285-295); Potassium 4.4 mmol/L (3.5-5.1); Sodium 134 mmol/L (136-145); Total Bilirubin 0.3 mg/dL (0.15-1.2); Total Protein 6.3 g/dL (6.6-8.7)
[2021-10-27] MEDS: levoFLOXacin 750 mg Tablet PO (05:18)
[2021-10-27] MEDS: carbidopa-levodopa 25-100mg Tablet 1.5 EACH PO ×3 (08:47→21:03)
[2021-10-27] MEDS: aspirin 325 mg Tablet PO (08:47)
[2021-10-27] MEDS: ascorbic acid 500 mg Tablet 1000 MG PO (08:47)
[2021-10-27] MEDS: cyanocobalamin 1,000 mcg Tablet 1000 MCG PO (08:48)
[2021-10-27] MEDS: losartan 50 mg Tablet 25 MG PO (08:48)
[2021-10-27] MEDS: lactobacillus 1 Tablet 1 TAB PO (08:48)
[2021-10-27] MEDS: guaiFENesin 600 mg Tablet 1200 MG PO ×2 (08:48→17:53)
[2021-10-27] MEDS: primidone 50 mg Tablet 150 MG PO ×3 (08:49→21:08)
[2021-10-27] MEDS: pantoprazole DR 40 mg Tablet PO (08:49)
[2021-10-27] MEDS: CLONazepam 0.5 mg Tablet PO ×3 (08:49→21:04)
[2021-10-27] MEDS: pyridoxine 50 mg Tablet PO (08:49)
[2021-10-27] MEDS: fluticasone nasal spray 16gm Btl 1 SPRAY NASAL ×2 (08:51→17:53)
[2021-10-27] MEDS: polyethylene glycol 3350 Pkt 17 gm PO ×2 (08:54→17:53)
[2021-10-27] MEDS: budesonide 0.5 mg/2 mL Neb 0.25 MG INHALATION ×2 (09:20→20:46)
--- NOTE | 2021-10-27 09:22 | PC.SOCIAL ---
IMM update IMM updated with patient and family at bedside. Verbalized an understanding. Copy Pg 2 provided. Initialled, dated, timed, and placed in chart.
[2021-10-27 11:13] LABS: ABG PH Result 7.41 (7.35-7.45); Alveolar-Arterial Oxygen Gradi 3.6 mmHg (5-10); Arterial Blood Gas Hematocrit 36.9 % (42-52); Base Excess ABG 0.7 mmol/L (-2.0-2.0); Blood Gas Allen Test Pos; Blood Gas Operator Identificat ED; Blood Gas Sample Site Radial, right; Blood Gas Sample Type Arterial; Carboxyhemoglobin 0.9 %THgb (0.4-20.1); HCO3 ABG 25.4 mmol/L (22-26); HGB O2 Sat 93.7 % (95-100); Ionized Calcium Level - ABG 1.2 mmol/L (1.1-1.4); Methemoglobin 1.1 % (0.4-1.5); Oxygen Device ROOM AIR; Oxygen Saturation ABG 95.6; PO2 ABG 73.4 mmHg (80.0-100.0); Potassium Level - ABG 4.2 mmol/L (3.5-5.0)
--- NOTE | 2021-10-27 11:16 | PC.NURSE ---
Notified Dr. Suero of patients blood pressure 90/46 manually. Patient not responding very well. Dr. Suero to come to floor
--- NOTE | 2021-10-27 11:17 | PC.NURSE ---
Dr. Suero gave orders the charge nurse put in and stated to hold all blood pressure meds this am
[2021-10-27 11:20] LABS: Glucose Point of Care 117 mg/dL (70-110)
[2021-10-27 11:20] LABS: Glucose Point of Care 159 mg/dL (70-110)
[2021-10-27 11:20] LABS: Glucose Point of Care 178 mg/dL (70-110)
--- NOTE | 2021-10-27 11:31 | PC.NURSE ---
Dr. Suero stated to hold Lasix this am
[2021-10-27] MEDS: docusate sodium 100 mg Capsule PO ×2 (11:54→21:08)
[2021-10-27 12:19] LABS: SARS Covid-2 Antigen Negative (Negative)
[2021-10-27] MEDS: insulin lispro 100 unit/1 mL SUBCUT ×2 (13:34→21:20)
--- NOTE | 2021-10-27 13:39 | P.PN_ITS ---
Subjective Subjective: Patient was seen this morning, family is at bedside, he sitting up in a chair, alert oriented x3, receiving albuterol, he tells me that he still has some bilateral lower extremity edema, but he feels that he is getting better, he is worried about his blood pressure, his blood pressure was quite hi gh overnight In the morning, I was advised by nurse to come see patient, as he was lethargic, not waking up to sternal rub, his blood pressures were 90s over 60s, upon arrival, patient would open his eyes but fall back asleep, no slurring of his words no facial droop, had generalized weakness, sitting up in a chair, with the help of nursing staff patient was moved into bed, legs elevated. He gradually started to wake up, following commands alert to person, to place, not to time, blood pressure is also gradually improving. I reexamined patient roughly close to noon, he remains alert oriented x3, at legs elevated, family is at bedside, likely patient has developed vasovagal syncope, likely secondary to blood pressure medications, sitting up in a chair. His family tells me that this frequently happens at home, and after roughly 5 minutes he is much more responsive. We will continue to monitor blood pressures, avoid aggressive management of blood pressures, hold off on giving fluids, Vitals/I&O/Wt Last Vital Signs Temp 98.3 F 10/27/21 11:42 Pulse 56 L 10/27/21 11:42 Resp 15 10/27/21 11:42 BP 90/46 10/27/21 11:42 Pulse Ox 96 10/27/21 11:42 10/26/21 10/27/21 10/27/21 22:59 06:59 14:59 Intake Total 460 / 940 240 / 240 Output Total 1550 / 1550 2650 / 4200 Balance -1090 / -610 -2650 / -3260 240 / 240 Physical Exam Const: COMMON NORMALS: no acute distress and patient oriented x3 Resp: COMMON NORMALS: normal respiratory effort, No retractions, No use of accessory muscles and clear to auscultation bilaterally AUSCULTATION: clear to auscultation bilaterally Cardio: COMMON NORMALS: regular rate, regular rhythm, S1 normal heart sound present and S2 normal heart sound present RATE: regular rate RHYTHM: regular rhythm HEART SOUNDS: S1 normal heart sound present and S2 normal heart sound present GI: COMMON NORMALS: Normal to inspection, nondistended, normoactive bowel sounds present, Soft to palpation and non-tender PALPATION: Yes Soft to palpation Neuro: COMMON NORMALS: patient oriented x3 Psych: COMMON NORMALS: mental status grossly normal Skin: NARRATIVE SKIN EXAM: 1+ pitting edema bilateral lower extremity chronic tremor Urinary Catheter Management: Beatty: Cath Placed During This Visit: yes Reason for Continuing Indwelling Catheter: Acute Urinary Retention or Obstruction Urinary Catheter Date of Insertion: 10/25/21 Urinary Catheter Time of Insertion: 23:30 Data : 10/27/21 04:33 10/27/21 04:33 Micro: Microbiology 10/23/21 09:30 Gram Stain - Final Sputum - Expectorated Sputum Sputum Culture - Final A&P Assessment and plan (1) Exertional shortness of breath: Vasovagal syncope -Continue to monitor blood pressure closely -Ambulate with care -Will modify blood pressure medications -Continue to neurochecks, aspiration precautions, NIH stroke scale Blood pressures are in a little bit better with losartan, add hydralazine at night. He does have some worsening edema, 2 doses of Lasix if blood pressure can tolerate, for now we will not yet raise losartan. Monitor blood pressures, reassess renal function. He is still having cough productive of purulent appearing beige sputum. For now continue to biotic additional day today. He does have seasonal allergies, and today is having some lacrimation, runny nose, added Flonase. We will add some budesonide as well given continued productive cough. Last night also placed Beatty catheter, and found Isabel retaining urine. Keep Beatty in place for now. Continue finasteride. Still feeling generally weak, still ringing in his ears. Discussed again possibility of withdrawal from primidone. As he is having persistent symptoms we will go up some on the dose to 150 mg 3 times daily with goal for continued slow taper off after acute symptoms resolved. B12 and folic acid are normal. At risk of B6 deficiency with Sinemet and has been having some symptoms of intermittent burning of the soles of his feet, B6 level sent. It is a send out, so for now we will start replacement. TSH was checked and okay. Will check B12, folic acid, he is also at risk of B6 deficiency with Sinemet. Check level. Continue optimization of control very high blood pressures in the setting also of orthostatic hypotension. Continue aspiration precautions. Was switched to Levaquin. Continue for now. Rare gram-positive rods on sputum culture. Follow-up culture. Urine bacterial antigens negative. Procalcitonin is negative. In case no growth on culture consider discontinuation of antibiotic. Discussed possibly severe pulmonary hypertension as assessed by TTE, which would benefit from further assessment, including possibly assessment of vasoreactivity. Pulmonary hypertension will need additional evaluation, will refer to cardiology, pulmonology. He was seeing Dr. Drew OP. Severe exertional limitation, getting exhausted with just getting up and around the bed from what we are seeing here. Unable to hold a urinal due to tremor. Place Beatty for now for monitoring of I&O. VQ scan with low probability of PE. No DVT noted in over extremities or left upper extremity. Status: Acute (2) Orthostatic hypotension: Stopped amlodipine, stop hydralazine. Started losartan. Continue propranolol. Would avoid midodrine due to episodes of severe hypotension and with bradycardia. Status: Acute (3) Pulmonary hypertension: As above Status: Acute (4) Difficult or painful urination: So far no trouble urinating, but complaining of pain in left testicle. Assessed by ultrasound. Mild residual postinflammatory changes in the left testicle. Discussed with him and family to follow-up with urology in office. With urinary retention. Beatty catheter placed. Maintain for now. Continue finasteride. Status: Acute (5) Anasarca: Worsened edema noted. Repeat dose of Lasix 40 mg IV today. Persistent edema, reassess renal function, and if remaining steady likely resume diuretic again in the morning. EF 73%. Mild MVR. Moderate TVR. Noted severe pulmonary hypertension. Status: Acute (6) Acute bronchitis: Antibiotic changed to Levaquin. Collect sputum culture. Mucinex. Pulmonary toilet. CT chest with diffuse bilateral multilobar groundglass opacifications, greatest on the right. Likely pneumonitis. Assess for aspiration. Procalcitonin not elevated. Respiratory viral panel negative including COVID- 19. Status: Acute Plan Ringing in ears: Still persistent. Appears to be bilateral. Perhaps milder. Unclear etiology. Thought to be metabolic, possibly withdrawal from primidone. Possibly B6 deficiency, level sent. Started on pyridoxine. Reports some rin ging in his ears, may be secondary to orthostatic blood pressures, blood pressure fluctuation. His primidone was discontinued about a week ago abruptly. He has had no seizure like activity, although the discontinuation was rather sudden. Resumed at lower dose for now. Continue efforts to discontinue with a taper. Parkinson's disease HTN DM2 with neuropathy: ssi while here. Consistent carb diet. PAD BPH History of TIA: Would discontinue celecoxib due to associated risk. Discussed with family. Attestations Medical Necessity Statement*: Patient requires hospitalization for vasovagal syncope, blood pressure fluctuation, weakness Coding Level of Care Code Acute Instant Powder Supervisor for Chg Fwd Diagnoses Exertional shortness of breath R06.02 Orthostatic hypotension I95.1 Pulmonary hypertension I27.20 Difficult or painful urination R30.0 Anasarca R60.1 Acute bronchitis J20.9
--- NOTE | 2021-10-27 13:44 | PC.SLP ---
Patient not seen for skilled ASSOCIATE SALES REPRESENTATIVE treatment today due to low blood pressure and patient laying in bed with feet elevated. Family reported patient had not difficulties consuming his breakfast this morning. No coughing or choking observed by family during breakfast.
--- NOTE | 2021-10-27 14:17 | PC.NURSE ---
Notified Dr. Suero of patients blood pressure 183/69
[2021-10-27 17:24] LABS: Glucose Point of Care 133 mg/dL (70-110)
[2021-10-27] MEDS: enoxaparin 30 mg/0.3 mL Syringe SUBCUT (17:53)
[2021-10-27] MEDS: hyDRALAzine 50 mg Tablet PO (21:04)
[2021-10-27] MEDS: finasteride 5 mg Tablet PO (21:04)
[2021-10-27] MEDS: FUROsemide 10 mg/mL SDV 4mL 40 MG IVP (21:43)
[2021-10-28] VITALS (13 sets, daily range): BP systolic 124–195; BP diastolic 57–78; PULSE 54–65; RESP 16–18; TEMP 36.3–36.5; O2SAT 93–96
[2021-10-28 06:18] LABS: Basophils # 0.1 10^3/uL (0.0-0.1); Basophils % 1.1 %; Eosinophils # 0.1 10^3/uL (0.0-0.8); Eosinophils % 2.7 %; Hematocrit 36.4 % (42.0-52.0); Hemoglobin 11.5 g/dL (11.7-16.6); Lymphocytes # 0.5 10^3/uL (0.8-4.8); Lymphocytes % 11.4 %; Mean Corpuscular HGB Conc 31.6 g/dL (30.0-36.0); Mean Corpuscular Hemoglobin 27.8 pg (28.0-34.0); Mean Corpuscular Volume 88.1 fl (80-94); Mean Platelet Volume 11.3 fL (7.4-10.4); Monocytes # 0.6 10^3/uL (0.2-0.9); Monocytes % 12.5 %; Neutrophils % 71.9 %; Nucleated Red Blood Cells % 0 %; Platelet Count 163 10^3/cmm (130-400); Red Blood Count 4.13 10^6/uL (4.1-5.3); Red Cell Distribution Width 13.4 % (12.1-15.1); White Blood Count 4.7 10^3/uL (4.0-10.0)
[2021-10-28 06:41] LABS: Alanine Aminotransferase < 5 U/L (0-41); Albumin Level 3.4 g/dL (3.5-5.2); Alkaline Phosphatase 71 IU/L (40-130); Anion Gap 14.4 (5-19); Aspartate Amino Transferase 13 U/L (0-40); Blood Urea Nitrogen 31 mg/dL (8-23); Calcium 8.9 mg/dL (8.5-10.5); Carbon Dioxide 25 mmol/L (22-29); Chloride 97 mmol/L (98-107); Creatinine Clr Calc Pharmacy 62.3979; Globulin 2.2 g/dL (1.3-4.6); Glucose 98 mg/dL (65-115); Magnesium 2.1 mg/dL (1.7-2.3); Osmolality Calculated 281 mOsm/kg (285-295); Phosphorus 4.9 mg/dL (2.5-4.5); Potassium 4.4 mmol/L (3.5-5.1); Sodium 132 mmol/L (136-145); Total Bilirubin 0.2 mg/dL (0.15-1.2); Total Protein 5.6 g/dL (6.6-8.7)
[2021-10-28 08:16] LABS: Glucose Point of Care 101 mg/dL (70-110)
[2021-10-28 08:16] LABS: Glucose Point of Care 184 mg/dL (70-110)
--- NOTE | 2021-10-28 08:27 | PC.NURSE ---
Patient informed me his is having pain above his right eye and it is twitching. Patient is flushed and states he doesn't feel right . I left room and telemonitor showed a 5-6 second run of VTACH. Dr. Suero informed via Voalte
--- NOTE | 2021-10-28 08:32 | PC.NURSE ---
bomb technician observed a 6 second run of Vtach at 0821. health information tech alerted Nurse mae and provided cardiac strip
--- NOTE | 2021-10-28 08:39 | ECG_ITS ---
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 Measurements Intervals [place] Rate: 62 P: 59 W[place]: 241 QRS: -30 QRSD: 114 T: 15 QT: 431 QTc: 439 Interpretive Statements SINUS RHYTHM WITH FIRST DEGREE AV BLOCK POSSIBLE ANTERIOR MYOCARDIAL INFARCTION , OF INDETERMINATE AGE [30 ms Q WAVE IN V3/V4, OR R < 0.2 mV IN V4] Compared to ECG 10/25/2021 08:03:44 First degree AV block now present Sinus bradycardia no longer present Myocardial infarct finding still present Electronically Signed On 10-28-2021 19:00:40 CDT by Nohemy Corbett M.D. [id number]
[2021-10-28] MEDS: FUROsemide 10 mg/mL SDV 4mL 40 MG IVP (09:14)
[2021-10-28] MEDS: NON-FORMULARY MEDICATION (Methenamine Hippurate 1 gram tablet) 1 EACH PO (09:14)
[2021-10-28] MEDS: polyethylene glycol 3350 Pkt 17 gm PO ×2 (09:14→17:41)
[2021-10-28] MEDS: CLONazepam 0.5 mg Tablet PO ×3 (09:15→20:34)
[2021-10-28] MEDS: amoxicillin-clav 875-125 mg Tablet 1 TAB PO ×2 (09:15→17:40)
[2021-10-28] MEDS: lactobacillus 1 Tablet 1 TAB PO (09:15)
[2021-10-28] MEDS: ascorbic acid 500 mg Tablet 1000 MG PO (09:16)
[2021-10-28] MEDS: carbidopa-levodopa 25-100mg Tablet 1.5 EACH PO ×3 (09:16→20:37)
[2021-10-28] MEDS: aspirin 325 mg Tablet PO (09:16)
[2021-10-28] MEDS: hyDRALAzine 25 mg Tablet PO ×3 (09:16→20:37)
[2021-10-28] MEDS: guaiFENesin 600 mg Tablet 1200 MG PO ×2 (09:16→17:40)
[2021-10-28] MEDS: pantoprazole DR 40 mg Tablet PO (09:17)
[2021-10-28] MEDS: docusate sodium 100 mg Capsule PO ×2 (09:17→20:37)
[2021-10-28] MEDS: losartan 50 mg Tablet 25 MG PO ×2 (09:18→20:35)
[2021-10-28] MEDS: fluticasone nasal spray 16gm Btl 1 SPRAY NASAL ×2 (09:18→17:41)
[2021-10-28] MEDS: metoprolol tartrate 25 mg Tablet 12.5 MG PO (09:19)
[2021-10-28] MEDS: cyanocobalamin 1,000 mcg Tablet 1000 MCG PO (09:19)
[2021-10-28] MEDS: pyridoxine 50 mg Tablet PO (09:34)
[2021-10-28] MEDS: primidone 50 mg Tablet 150 MG PO ×3 (09:34→20:36)
--- NOTE | 2021-10-28 11:48 | PM.PN ---
Subjective Subjective: Patient was seen this morning, he tells me that is not feeling well, just feels weak, no chest pain, no palpitations, no lightheadedness, dizziness, he did have a 5 beat episode of nonsustained V. tach, he was hypertensive throughout the day yesterday, Vitals/I&O/Wt Last Vital Signs Temp 97.5 F L 10/28/21 11:44 Pulse 65 10/28/21 11:44 Resp 16 10/28/21 11:44 BP 124/57 10/28/21 11:44 Pulse Ox 93 10/28/21 11:44 10/27/21 10/28/21 10/28/21 22:59 06:59 14:59 Intake Total 120 / 360 200 / 560 480 / 480 Output Total 910 / 910 2800 / 3710 Balance -790 / -550 -2600 / -3150 480 / 480 Physical Exam Const: COMMON NORMALS: no acute distress and patient oriented x3 Resp: COMMON NORMALS: normal respiratory effort, No retractions, No use of accessory muscles and clear to auscultation bilaterally AUSCULTATION: clear to auscultation bilaterally Cardio: COMMON NORMALS: regular rate, regular rhythm, S1 normal heart sound present and S2 normal heart sound present RATE: regular rate RHYTHM: regular rhythm HEART SOUNDS: S1 normal heart sound present and S2 normal heart sound present GI: COMMON NORMALS: Normal to inspection, nondistended, normoactive bowel sounds present, Soft to palpation and non-tender PALPATION: Yes Soft to palpation Extremity: COMMON NORMALS: no pedal edema Neuro: COMMON NORMALS: patient oriented x3 Urinary Catheter Management: Beatty: Cath Placed During This Visit: yes Reason for Continuing Indwelling Catheter: Acute Urinary Retention or Obstruction Urinary Catheter Date of Insertion: 10/25/21 Urinary Catheter Time of Insertion: 23:30 Data : 10/28/21 05:45 10/28/21 05:45 A&P Assessment and plan (1) Exertional shortness of breath: Vasovagal syncope -Continue to monitor blood pressure closely -Ambulate with care -Will modify blood pressure medications -Continue to neurochecks, aspiration precautions, NIH stroke scale Nonsustained V. tach, start metoprolol 12.5 twice daily, mag and potassium within normal limits Blood pressures are in a little bit better continue losartan, add hydralazine He does have some worsening edema, on doses of Lasix if blood pressure can tolerate, Monitor blood pressures, reassess renal function. He is still having cough productive of purulent appearing beige sputum. For now continue to biotic additional day today. He does have seasonal allergies, and today is having some lacrimation, runny nose, added Flonase. We will add some budesonide as well given continued productive cough. Last night also placed Beatty catheter, and found Isabel retaining urine. Keep Beatty in place for now. Continue finasteride. Still feeling generally weak, still ringing in his ears. Discussed again possibility of withdrawal from primidone. As he is having persistent symptoms we will go up some on the dose to 150 mg 3 times daily with goal for continued slow taper off after acute symptoms resolved. B12 and folic acid are normal. At risk of B6 deficiency with Sinemet and has been having some symptoms of intermittent burning of the soles of his feet, B6 level sent. It is a send out, so for now we will start replacement. TSH was checked and okay. Will check B12, folic acid, he is also at risk of B6 deficiency with Sinemet. Check level. Continue optimization of control very high blood pressures in the setting also of orthostatic hypotension. Continue aspiration precautions. Was switched to Levaquin. Continue for now. Rare gram-positive rods on sputum culture. Follow-up culture. Urine bacterial antigens negative. Procalcitonin is negative. In case no growth on culture consider discontinuation of antibiotic. Discussed possibly severe pulmonary hypertension as assessed by TTE, which would benefit from further assessment, including possibly assessment of vasoreactivity. Pulmonary hypertension will need additional evaluation, will refer to cardiology, pulmonology. He was seeing Dr. Drew OP. Severe exertional limitation, getting exhausted with just getting up and around the bed from what we are seeing here. Unable to hold a urinal due to tremor. Place Beatty for now for monitoring of I&O. VQ scan with low probability of PE. No DVT noted in over extremities or left upper extremity. Status: Acute (2) Orthostatic hypotension: Stopped amlodipine, stop hydralazine. Started losartan. Continue propranolol. Would avoid midodrine due to episodes of severe hypotension and with bradycardia. Status: Acute (3) Pulmonary hypertension: As above Status: Acute (4) Difficult or painful urination: So far no trouble urinating, but complaining of pain in left testicle. Assessed by ultrasound. Mild residual postinflammatory changes in the left testicle. Discussed with him and family to follow-up with urology in office. With urinary retention. Beatty catheter placed. Maintain for now. Continue finasteride. Status: Acute (5) Anasarca: Worsened edema noted. Repeat dose of Lasix 40 mg IV today. Persistent edema, reassess renal function, and if remaining steady likely resume diuretic again in the morning. EF 73%. Mild MVR. Moderate TVR. Noted severe pulmonary hypertension. Status: Acute (6) Acute bronchitis: Antibiotic changed to Levaquin. Collect sputum culture. Mucinex. Pulmonary toilet. CT chest with diffuse bilateral multilobar groundglass opacifications, greatest on the right. Likely pneumonitis. Assess for aspiration. Procalcitonin not elevated. Respiratory viral panel negative including COVID-19. Status: Acute (7) NSVT (nonsustained ventricular tachycardia): Status: Acute Plan Ringing in ears: Still persistent. Appears to be bilateral. Perhaps milder. Unclear etiology. Thought to be metabolic, possibly withdrawal from primidone. Possibly B6 deficiency, level sent. Started on pyridoxine. Reports some ringing in his ears, may be secondary to orthostatic blood pressures, blood pressure fluctuation. His primidone was discontinued about a week ago abruptly. He has had no seizure like activity, although the discontinuation was rather sudden. Resumed at lower dose for now. Continue efforts to discontinue with a taper. Parkinson's disease HTN DM2 with neuropathy: ssi while here. Consistent carb diet. PAD BPH History of TIA: Would discontinue celecoxib due to associated risk. Discussed with family. Attestations Medical Necessity Statement*: Patient requires hospitalization for elevated blood pressures, nonsustained V. tach Coding Level of Care Code Acute Instant Printer Operator for Chg Fwd Diagnoses Exertional shortness of breath R06.02 Orthostatic hypotension I95.1 Pulmonary hypertension I27.20 Difficult or painful urination R30.0 Anasarca R60.1 Acute bronchitis J20.9 NSVT (nonsustained ventricular tachycardia) I47.2
[2021-10-28 11:49] LABS: Glucose Point of Care 192 mg/dL (70-110)
[2021-10-28] MEDS: insulin lispro 100 unit/1 mL SUBCUT ×3 (12:22→20:44)
--- NOTE | 2021-10-28 15:23 | PC.NURSE ---
Patient's family is concerned that he isn't getting better and are upset that he is no longer taking some of his home medications. Family has requested to speak with the physician regarding his care. Dr. Suero has been made aware of the request via [employer].
[2021-10-28 16:47] LABS: Glucose Point of Care 142 mg/dL (70-110)
[2021-10-28] MEDS: enoxaparin 30 mg/0.3 mL Syringe SUBCUT (17:41)
[2021-10-28] MEDS: propranolol 40 mg Tablet 120 MG PO (17:46)
[2021-10-28] MEDS: finasteride 5 mg Tablet PO (20:34)
[2021-10-28 20:49] LABS: Glucose Point of Care 163 mg/dL (70-110)
[2021-10-29 03:29] VITALS: BP 183/77; PULSE 60; RESP 18; TEMP 36.4; O2SAT 95
[2021-10-29 06:00] VITALS: PULSE 58
[2021-10-29 06:25] LABS: Basophils # 0.1 10^3/uL (0.0-0.1); Eosinophils # 0.2 10^3/uL (0.0-0.8); Eosinophils % 4.4 %; Hematocrit 36.7 % (42.0-52.0); Hemoglobin 11.8 g/dL (11.7-16.6); Lymphocytes # 0.7 10^3/uL (0.8-4.8); Lymphocytes % 13.1 %; Mean Corpuscular HGB Conc 32.2 g/dL (30.0-36.0); Mean Corpuscular Hemoglobin 28.3 pg (28.0-34.0); Mean Platelet Volume 11.1 fL (7.4-10.4); Monocytes # 0.7 10^3/uL (0.2-0.9); Monocytes % 13.9 %; Neutrophils # 3.34 10^3/uL (1.8-7.7); Nucleated Red Blood Cells % 0 %; Platelet Count 154 10^3/cmm (130-400); Red Blood Count 4.17 10^6/uL (4.1-5.3); Red Cell Distribution Width 13.4 % (12.1-15.1)
[2021-10-29 06:43] LABS: Alanine Aminotransferase < 5 U/L (0-41); Albumin Level 3.2 g/dL (3.5-5.2); Alkaline Phosphatase 76 IU/L (40-130); Anion Gap 16.2 (5-19); Aspartate Amino Transferase 14 U/L (0-40); Blood Urea Nitrogen 39 mg/dL (8-23); Calcium 8.7 mg/dL (8.5-10.5); Carbon Dioxide 26 mmol/L (22-29); Chloride 95 mmol/L (98-107); Creatinine Clr Calc Pharmacy 62.3979; Globulin 2.9 g/dL (1.3-4.6); Glucose 129 mg/dL (65-115); Magnesium 2.2 mg/dL (1.7-2.3); Osmolality Calculated 287 mOsm/kg (285-295); Phosphorus 4.2 mg/dL (2.5-4.5); Potassium 4.2 mmol/L (3.5-5.1); Sodium 133 mmol/L (136-145); Total Bilirubin 0.2 mg/dL (0.15-1.2); Total Protein 6.1 g/dL (6.6-8.7)
[2021-10-29 08:00] VITALS: BP 168/75; PULSE 60; RESP 14; TEMP 36.2; O2SAT 95
[2021-10-29] MEDS: ascorbic acid 500 mg Tablet 1000 MG PO (09:27)
[2021-10-29] MEDS: pantoprazole DR 40 mg Tablet PO (09:27)
[2021-10-29] MEDS: polyethylene glycol 3350 Pkt 17 gm PO (09:27)
[2021-10-29] MEDS: aspirin 325 mg Tablet PO (09:27)
[2021-10-29] MEDS: carbidopa-levodopa 25-100mg Tablet 1.5 EACH PO (09:27)
[2021-10-29] MEDS: docusate sodium 100 mg Capsule PO (09:28)
[2021-10-29] MEDS: cyanocobalamin 1,000 mcg Tablet 1000 MCG PO (09:28)
[2021-10-29] MEDS: lactobacillus 1 Tablet 1 TAB PO (09:28)
[2021-10-29] MEDS: CLONazepam 0.5 mg Tablet PO (09:28)
[2021-10-29] MEDS: losartan 50 mg Tablet 25 MG PO (09:28)
[2021-10-29] MEDS: guaiFENesin 600 mg Tablet 1200 MG PO (09:28)
[2021-10-29] MEDS: amoxicillin-clav 875-125 mg Tablet 1 TAB PO (09:28)
[2021-10-29] MEDS: fluticasone nasal spray 16gm Btl 1 SPRAY NASAL (09:29)
[2021-10-29] MEDS: primidone 50 mg Tablet 150 MG PO (09:37)
[2021-10-29] MEDS: hyDRALAzine 25 mg Tablet PO (09:37)
[2021-10-29] MEDS: NON-FORMULARY MEDICATION (Methenamine Hippurate 1 gram tablet) 1 EACH PO (09:38)
[2021-10-29] MEDS: pyridoxine 50 mg Tablet PO (09:38)
[2021-10-29] MEDS: propranolol 40 mg Tablet 120 MG PO (09:38)
--- NOTE | 2021-10-29 10:57 | P.DS_ITS ---
Discharge Providers Date of Admission: 10/22/21 15:23 Date of Discharge: October 29, 2021 Attending Provider at Admission: Justice Hale Attending Provider at Discharge: Elia Suero MD Primary Care Provider: Carlos Marques MD Diagnoses at Discharge Discharge Diagnosis (1) Exertional shortness of breath: Status: Acute (2) Orthostatic hypotension: Status: Acute (3) Pulmonary hypertension: Status: Acute (4) Difficult or painful urination: Status: Acute (5) Anasarca: Status: Acute (6) Acute bronchitis: Status: Acute (7) NSVT (nonsustained ventricular tachycardia): Status: Acute Reason for Visit Reason for Visit: SOB/coughing up phelgm/runny nose/throat issue Hospital Course Hospital Course Pleasant 86-year-old gentleman with history of TIA, PAD, hypertension, tremor and Parkinson's disease, history of orthostatic hypotension, brought for evaluation to ER by his family due to experiencing the last 4-5 days severe dyspnea on exertion. Patient was admitted to [facility] for exertional shortness of breath, likely secondary to fluid overload diastolic CHF received Lasix therapy,?-6.7 L, ambulating without oxygen, significantly improved, discharged on Lasix 20 mg once daily with potassium replacement for diastolic CHF Patient had evidence of orthostatic hypotension during his hospitalization, remained orthostatic positive, had episodes of orthostatic hypotension and vas ovagal syncope during his hospitalization. 1 episode, lasting over 5 minutes, symptoms improved from when lying him down, elevating his legs. In terms of his orthostatic hypotension, patient takes propanolol high-dose for his parkinsonian tremors. Family was resistant about discontinuing medication. I have decreased the dose to 120 twice daily. I was clear with family that beta-blockers such as propranolol are associated with increased risk of orthostatic hypotension, increased risk of falls, increased risk of passing out, morbidity and mortality associated Patient and family voiced understanding, all questions answered however they want to continue propanolol. Patient also remained hypertensive throughout his hospitalization, in my experience, managing his blood pressure aggressively results and fluctuations of his blood pressure and increased risk of orthostatic hypotension. Thus I advised for a more liberal approach, permitting him a higher blood pressure which is associated with decreased risk of hypotension, and subsequent falls. I have discharged him on blood pressure medications as below, very careful titration as outpatient. In terms of his parkinsonian medication, he does take Primodine, which will require a slow wean as outpatient For generalized weakness, possibly withdrawal from Primodine, thus he will be weaned down slowly, through fci, and also likely benign positional vertigo Acute bronchitis, discharged on Augmentin He also had episode of nonsustained V. tach during his hospitalization, intolerant with beta-alberto given his orthostatic hypotension, continue propanolol Physical Exam Const: COMMON NORMALS: no acute distress and patient oriented x3 Resp: COMMON NORMALS: normal respiratory effort, No retractions, No use of accessory muscles and clear to auscultation bilaterally AUSCULTATION: clear to auscultation bilaterally Cardio: COMMON NORMALS: regular rate, regular rhythm, S1 normal heart sound present and S2 normal heart sound present RATE: regular rate RHYTHM: regular rhythm HEART SOUNDS: S1 normal heart sound present and S2 normal heart sound present GI: COMMON NORMALS: Normal to inspection, nondistended, normoactive bowel sounds present, Soft to palpation, non-tender and No hepatosplenomegaly present PALPATION: Yes Soft to palpation and Yes No hepatosplenomegaly present Extremity: COMMON NORMALS: no pedal edema Neuro: COMMON NORMALS: patient oriented x3 Psych: COMMON NORMALS: mental status grossly normal Urinary Catheter Management: Beatty: Cath Placed During This Visit: yes Reason for Continuing Indwelling Catheter: Acute Urinary Retention or Obstruction Urinary Catheter Date of Insertion: 10/25/21 Urinary Catheter Time of Insertion: 23:30 Discharge Data Studies Completed and Pending Completed Studies During Hospitalization Category Date Time Status CT chest wo con [id number] Routine Cat Scan 10/22/21 08:51 Completed Modified barium swallow [FL barium swallow modifd [id number] Exams 10/23/21 08:00 Completed ] Routine XR chest 2V* [id number] Stat Exams 10/21/21 11:31 Completed NM pul vent and perfus* [id number] Stat Nuc Med 10/21/21 13:46 Completed CV. echo complete* [id number] Routine Ultrasound 10/21/21 17:28 Completed US testicular [US scrotum [id number]] Routine Ultrasound 10/23/21 10:06 Completed US venous duplex lower extremity bilat [CV venous Ultrasound 10/21/21 12:02 [place] [id number]] Urgent US venous duplex upper extremity LT [CV venous duplex Ultrasound 10/21/21 12:02 [place] [id number]] Urgent Pending at discharge Category Date Time Status B6 [Vitamin B6 Plasma] Routine Lab 10/25/21 23:10 Received COVID [SARS Covid-2 Antigen] Routine Lab 10/29/21 09:34 Uncollected Complete Blood Count w/Auto AM LABS Lab 10/30/21 04:00 Ordered Comprehensive Metabolic Panel AM LABS Lab 10/30/21 04:00 Ordered Magnesium AM LABS Lab 10/30/21 04:00 Ordered Phosphorus AM LABS Lab 10/30/21 04:00 Ordered Radiology Impressions Chest X-Ray 10/21/21 11:31 IMPRESSION: 1. Faint interstitial densities right perihilar region. 2. Otherwise No acute findings. Pulmonary Perfusion Imaging 10/21/21 13:46 IMPRESSION: Low probability pulmonary embolism. Chest CT 10/22/21 08:51 IMPRESSION: 1. Diffuse bilateral multilobar groundglass opacifications, greatest on the RIGHT. Most likely due to pneumonitis. 2. Very minimally increased in size hilar and mediastinal lymph nodes. Probably reactive. 3. Very small bilateral pleural effusions. Modified Barium Swallow 10/23/21 08:00 Impression: 1. Premature spillage during the oral phase. 2. Pharyngeal phase showed coating of the hypopharynx Scrotum Ultrasound 10/23/21 10:06 IMPRESSION: 1. No testicular mass or torsion. 2. No orchitis. 3. Mild postinflammatory changes LEFT testicle. Laboratory Results WBC 5.0 10^3/uL (4.0-10.0) 10/29/21 05:54 RBC 4.17 10^6/uL (4.1-5.3) 10/29/21 05:54 Hgb 11.8 g/dL (11.7-16.6) 10/29/21 05:54 Hct 36.7 % (42.0-52.0) L 10/29/21 05:54 MCV 88.0 fl (80-94) 10/29/21 05:54 MCH 28.3 pg (28.0-34.0) 10/29/21 05:54 MCHC 32.2 g/dL (30.0-36.0) 10/29/21 05:54 RDW 13.4 % (12.1-15.1) 10/29/21 05:54 Plt Count 154 10^3/cmm (130-400) 10/29/21 05:54 MPV 11.1 fL (7.4-10.4) H 10/29/21 05:54 Neut % (Auto) 67.0 % 10/29/21 05:54 Lymph % (Auto) 13.1 % 10/29/21 05:54 [place] % (Auto) 13.9 % 10/29/21 05:54 Eos % (Auto) 4.4 % 10/29/21 05:54 Baso % (Auto) 1.0 % 10/29/21 05:54 Neut # (Auto) 3.34 10^3/uL (1.8-7.7) 10/29/21 05:54 Lymph # (Auto) 0.7 10^3/uL (0.8-4.8) L 10/29/21 05:54 [place] # (Auto) 0.7 10^3/uL (0.2-0.9) 10/29/21 05:54 Eos # (Auto) 0.2 10^3/uL (0.0-0.8) 10/29/21 05:54 Baso # (Auto) 0.1 10^3/uL (0.0-0.1) 10/29/21 05:54 Nucleated RBC % (auto) 0 % 10/29/21 05:54 Nucleated RBCs # 0.0 /100WBC 10/29/21 05:54 D-Dimer 0.98 ug/mIFEU (0-0.59) H 10/21/21 12:32 Specimen Type Arterial 10/27/21 11:02 Sample Site Radial, right 10/27/21 11:02 ABG pH 7.41 (7.35-7.45) 10/27/21 11:02 ABG pCO2 40.0 mmHg (35-45) 10/27/21 11:02 ABG pO2 73.4 mmHg (80.0-100.0) L 10/27/21 11:02 ABG HCO3 25.4 mmol/L (22-26) 10/27/21 11:02 ABG O2 Saturation 95.6 10/27/21 11:02 ABG Base Excess 0.7 mmol/L (-2.0-2.0) 10/27/21 11:02 Sukh Test Pos 10/27/21 11:02 A-a O2 Gradient 3.6 mmHg (5-10) L 10/27/21 11:02 Hematocrit 36.9 % (42-52) L 10/27/21 11:02 Hgb O2 Saturation 93.7 % (95-100) L 10/27/21 11:02 Carboxyhemoglobin 0.9 %THgb (0.4-20.1) 10/27/21 11:02 Methemoglobin 1.1 % (0.4-1.5) 10/27/21 11:02 Total Hemoglobin 12.0 g/dL (14-18) L 10/27/21 11:02 Sodium 132.0 mmol/L (131-143) 10/27/21 11:02 Potassium 4.2 mmol/L (3.5-5.0) 10/27/21 11:02 Glucose 133.0 mg/dL (70-115) H 10/27/21 11:02 Ionized Calcium 1.2 mmol/L (1.1-1.4) 10/27/21 11:02 O2 Delivery Device Room air 10/27/21 11:02 FiO2 21.0 % 10/27/21 11:02 Director Clinical Operations ID Ed 10/27/21 11:02 Sodium 133 mmol/L (136-145) L 10/29/21 05:54 Potassium 4.2 mmol/L (3.5-5.1) 10/29/21 05:54 Chloride 95 mmol/L (98-107) L 10/29/21 05:54 Carbon Dioxide 26 mmol/L (22-29) 10/29/21 05:54 Anion Gap 16.2 (5-19) 10/29/21 05:54 BUN 39 mg/dL (8-23) H 10/29/21 05:54 Creatinine 1.1 mg/dL (0.7-1.2) 10/29/21 05:54 GFR Calculation Not Reportable 10/29/21 05:54 Glucose 129 mg/dL (65-115) H 10/29/21 05:54 POC Glucose 163 mg/dL (70-110) H 10/28/21 20:37 Calculated Osmolality 287 mOsm/kg (285-295) 10/29/21 05:54 Calcium 8.7 mg/dL (8.5-10.5) 10/29/21 05:54 Phosphorus 4.2 mg/dL (2.5-4.5) 10/29/21 05:54 Magnesium 2.2 mg/dL (1.7-2.3) 10/29/21 05:54 Total Bilirubin 0.2 mg/dL (0.15-1.2) 10/29/21 05:54 AST 14 U/L (0-40) 10/29/21 05:54 ALT < 5 U/L (0-41) 10/29/21 05:54 Alkaline Phosphatase 76 IU/L (40-130) 10/29/21 05:54 Troponin T Gen 5 ng/L 32 ng/L (0-15) H 10/25/21 05:30 Troponin T Baseline 61 ng/L (0-15) H 10/21/21 11:50 Troponin T 120 Minute 63.17 ng/L (0-15) H 10/21/21 14:27 Delta Troponin T 2.17 ABS# (0-10) 10/21/21 14:27 C-Reactive Protein 30.7 mg/L (0.0-4.9) H 10/21/21 11:50 NT-Pro-B Natriuret Pep 3837 pg/mL (0-450) H 10/21/21 11:50 Total Protein 6.1 g/dL (6.6-8.7) L 10/29/21 05:54 Albumin 3.2 g/dL (3.5-5.2) L 10/29/21 05:54 Globulin 2.9 g/dL (1.3-4.6) 10/29/21 05:54 Vitamin B12 591 pg/mL (232-1245) 10/26/21 05:10 Folate 10.8 ng/mL (4.5-32.2) 10/26/21 05:10 Procalcitonin 0.06 ng/mL (0-0.5) 10/25/21 05:30 TSH 3.33 uIU/mL (0.27-4.20) 10/25/21 05:30 Urine Color Yellow (Yellow) 10/22/21 10:09 Urine Appearance Clear (CLEAR) 10/22/21 10:09 Urine pH 5 (5-7) 10/22/21 10:09 Ur Specific [place] 1.010 (1.005-1.030) 10/22/21 10:09 Urine Protein 2+ (Negative) H 10/22/21 10:09 Urine Glucose (UA) Norm (Normal) 10/22/21 10:09 Urine Ketones Negative (Negative) 10/22/21 10:09 Urine Blood 2+ (Negative) H 10/22/21 10:09 Urine Nitrate Negative (Negative) 10/22/21 10:09 Urine Bilirubin Neg (Negative) 10/22/21 10:09 Urine Urobilinogen Norm mg/dL (Negative) 10/22/21 10:09 Ur Leukocyte Esterase Negative (Negative) 10/22/21 10:09 Urine RBC 0-4 /hpf (0-2) H 10/22/21 10:09 Urine WBC 0-4 /hpf (0-5) H 10/22/21 10:09 Ur Squamous Epith Cells 0-4 /hpf (0-5) H 10/22/21 10:09 Ur Transition Epith Cell None /hpf 10/22/21 10:09 Ur Renal Epithelial Cell N /hpf 10/22/21 10:09 Amorphous Sediment Not Reportable 10/22/21 10:09 Urine Bacteria None /hpf (NONE) 10/22/21 10:09 Hyaline Casts 0-4 /lpf H 10/22/21 10:09 Fine Granular Casts 0-4 /lpf H 10/22/21 10:09 Urine Mucus 1+ /hpf 10/22/21 10:09 Nasal Influ A H1 2008 PCR Not detected (NOT DETECT) 10/21/21 11:50 Adenovirus (PCR) Not detected (NOT DETECT) 10/21/21 11:50 C. pneumoniae DNA (PCR) Not detected (NOT DETECT) 10/21/21 11:50 Coronavirus 229E (PCR) Not detected (NOT DETECT) 10/21/21 11:50 Human Metapneumovir PCR Not detected (NOT DETECT) 10/21/21 11:50 Influenza A (H1) PCR Not detected (NOT DETECT) 10/21/21 11:50 Influenza A (H3) PCR Not detected (NOT DETECT) 10/21/21 11:50 Influenza Type A (PCR) Not detected (NOT DETECT) 10/21/21 11:50 Influenza Type B (PCR) Not detected (NOT DETECT) 10/21/21 11:50 M. pneumoniae (PCR) Not detected (NOT DETECT) 10/21/21 11:50 Parainfluenza 1 (PCR) Not detected (NOT DETECT) 10/21/21 11:50 Parainfluenza 2 (PCR) Not detected (NOT DETECT) 10/21/21 11:50 Parainfluenza 3 (PCR) Not detected (NOT DETECT) 10/21/21 11:50 Parainfluenza 4 (PCR) Not detected (NOT DETECT) 10/21/21 11:50 RSV Type A (PCR) Not detected (NOT DETECT) 10/21/21 11:50 RSV Type B (PCR) Not detected (NOT DETECT) 10/21/21 11:50 Entero/Rhino (PCR) Not detected (NOT DETECT) 10/21/21 11:50 SARS-CoV-2 (PCR) Not detected (NOT DETECT) 10/21/21 11:50 SARS-CoV-2 Ag (Rapid) Negative (Negative) 10/27/21 11:25 Vitals Last Vital Signs Temp 97.5 F L 10/29/21 03:29 Pulse 58 L 10/29/21 06:00 Resp 18 10/29/21 03:29 BP 183/77 10/29/21 03:29 Pulse Ox 95 10/29/21 03:29 Discharge Plan Discharge Patient Disposition: Xfer SNF Condition: Stable Prescriptions: New propranolol 80 mg tablet 160 mg PO BID Qty: 180 0RF polyethylene glycol 3350 17 gram Powder In Packet 17 g PO DAILY PRN (Reason: constipation) 30 Days Qty: 30 0RF pyridoxine (vitamin B6) 50 mg Tablet 50 mg PO DAILY 30 Days Qty: 30 0RF amoxicillin-pot clavulanate 875-125 mg Tablet 1 tab PO BID 3 Days Qty: 6 0RF losartan 50 mg Tablet 25 mg PO Q12H 30 Days Qty: 30 0RF finasteride 5 mg Tablet 5 mg PO BEDTIME 30 Days Qty: 30 0RF pantoprazole 40 mg Tablet,Delayed Release (Dr/Ec) 40 mg PO DAILY 30 Days Qty: 30 0RF fluticasone propionate 50 mcg/actuation [place],Suspension 1 spray nasal BID PRN (Reason: congestion) 30 Days 0RF primidone 50 mg Tablet 150 mg PO TID 30 Days Qty: 270 0RF hydralazine 25 mg Tablet 25 mg PO TID 30 Days Qty: 90 0RF propranolol 40 mg Tablet 120 mg PO BID 30 Days Qty: 180 0RF insulin aspart U-100 [Novolog Flexpen U-100 Insulin] 100 unit/mL (3 mL) insulin pen See Rx Instructions .ROUTE .COMPLEX Qty: 15 0RF Rx Instructions: Inject, subcut, 3 times daily, after meals, based on sliding scale provided Continued aspirin 325 mg tablet 325 mg PO DAILY Qty: 90 3RF clonazepam 0.5 mg tablet 0.5 mg PO TID 0RF ascorbic acid (vitamin C) 500 mg capsule 1,000 mg PO DAILY 0RF Probiotic Gold Acidophilus 1 billion cell capsule 1,000 mmu cells PO DAILY 0RF Rx Instructions: administer with a meal carbidopa-levodopa 25-100 mg tablet 1.5 tab PO TID 0RF cyanocobalamin (vitamin B-12) 1,000 mcg capsule 1,000 mcg PO DAILY 0RF methenamine hippurate 1 gram tablet See Rx Instructions .ROUTE .COMPLEX Qty: 60 6RF Dose Instruction: TAKE ONE TABLET BY MOUTH TWICE DAILY - TAKE VITAMIN C 1,000 MG WITH EACH DOSE OF METHENAMINE Rx Instructions: TAKE ONE TABLET BY MOUTH ONCE DAILY - TAKE VITAMIN C 1,000 MG WITH EACH DOSE OF METHENAMINE Changed potassium chloride 10 mEq capsule, extended release 10 meq PO DAILY Qty: 0 0RF furosemide 20 mg tablet 20 mg PO DAILY Qty: 0 0RF Discontinued celecoxib [Celebrex] 100 mg capsule 100 mg PO BID 0RF propranolol 80 mg capsule,extended release 24 hr 160 mg PO BID 0RF glimepiride 4 mg tablet 4 mg PO BID 0RF primidone 50 mg tablet 250 mg PO TID 0RF amlodipine 5 mg tablet 5 mg PO BID Qty: 180 3RF hydralazine 50 mg tablet 50 mg PO TID Qty: 300 3RF Benadryl Allergy Plus Congest 25-10 mg Tablet 1 tab PO TID 0RF Discharge Orders: Discharge Order (Routine); Ordered 10/29/21 Ordered By: Elia Suero Referrals: Carlos Marques MD [Primary Care Provider] - Discharge Diet: Cardiac Discharge Activity: Resume usual activity Activity Restrictions/Additional Instructions: -Patient runs hypertensive, tight control of management of blood pressure results in blood pressure drops and passing out episodes -Ambulate with care, risks of falls -Patient's takes Primodine 150 mg 3 times daily, slowly wean, to discontinue -Monitor for orthostatic hypotension, passing out episodes -Inject insulin, subcu, 3 times daily, after meals, based on sliding scale provided -Do not inject insulin if you do not eat -If blood sugar greater than 500 or blood sugar less than 60 call primary care -If blood sugar less than 60, drink or juice already eat a hard candy go to emergency room -Insulin sliding fingerstick? Insulin 141-180?2 units/sq 181-220?4 units/sq 221-260?6 units/sq 261-300?8 units/sq 301-350 10 units/sq 351-400 12 units/sq > 400? 14 units/sq Discharge Attestations Time Spent in Discharge Care*: less than 30 min Quality Metrics Clinical Quality Measures [ No reported AMI, CVA or VTE this stay] Coding Level of Care Code Acute Chg FW DC note Diagnoses Exertional shortness of breath R06.02 Orthostatic hypotension I95.1 Pulmonary hypertension I27.20 Difficult or painful urination R30.0 Anasarca R60.1 Acute bronchitis J20.9 NSVT (nonsustained ventricular tachycardia) I47.2
--- NOTE | 2021-10-29 11:05 | PC.SOCIAL ---
IMM update IMM updated with patient and family at bedside. Verbalized an understanding. Copy Pg 2 provided. Initialled, dated, timed, and placed in chart.
[2021-10-29 11:52] LABS: SARS Covid-2 Antigen Negative (Negative)
[2021-10-29 12:00] VITALS: BP 155/61; PULSE 57; RESP 14; O2SAT 97
[2021-10-30 06:29] LABS: Glucose Point of Care 123 mg/dL (70-110)
[2021-10-30 13:59] LABS: Vitamin B6 Plasma 7.3 ng/mL (2.1-21.7)
== END 2021-10-29 14:30 | disposition skilled nursing facility (03) | DRG 291 ==
LOC: ER 12:38 → MEDSURG 16:06
PROVIDERS: Admitting Provider Internal Medicine; Emergency Provider Emergency Medicine; PCP Family Medicine; Visit Provider Family Medicine
DX: I11.0 Hypertensive heart disease with heart failure (principal); I50.31 Acute diastolic (congestive) heart failure; I47.2 Ventricular tachycardia; I95.1 Orthostatic hypotension; G20 Parkinson's disease; J20.9 Acute bronchitis, unspecified; Z79.82 Long term (current) use of aspirin; I27.20 Pulmonary hypertension, unspecified; R30.0 Dysuria; Z87.891 Personal history of nicotine dependence; Z79.84 Long term (current) use of oral hypoglycemic drugs; E11.59 Type 2 diabetes mellitus with other circulatory complications; I73.9 Peripheral vascular disease, unspecified; E11.40 Type 2 diabetes mellitus with diabetic neuropathy, unspecified; N40.1 Benign prostatic hyperplasia with lower urinary tract symptoms; N50.812 Left testicular pain
CPT/HCPCS: 36415; 36416; 36600; 51702; 71046; 71250; 74230; 76870; 78014; 80048; 80051; 80053; 81001; 82330; 82607; 82746; 82805; 82962; 83735; 83880; 84100; 84145; 84207; 84443; 84484; 85025; 85378; 86140; 86403; 87070; 87205; 87426; 87449; 87486; 87581; 87633; 92526; 92610; 92611; 93005; 93306; 93970; 93971; 94640; 96372; 97110; 97116; 97161; 97165; 97530; 97535; 99285; A9540; A9567; G0378; J0360; J1650; J1815; J1940; J7626; P9047

== ENCOUNTER 2021-10-29 16:38 | Emergency (ER) | payer MEDICARE, SELFPAY ==
[2021-10-29 16:46] VITALS: BP 165/71; PULSE 62; RESP 15; TEMP 36.4; O2SAT 96; BMI 34.2
--- NOTE | 2021-10-29 16:56 | CTR_ITS ---
PROCEDURE INFORMATION: Exam: CT Head Without Contrast Exam date and time: 10/29/2021 5:57 PM Age: 86 years old Clinical indication: Syncope and collapse TECHNIQUE: Imaging protocol: Computed tomography of the head without contrast. Radiation optimization: All CT scans at this facility use at least one of these dose optimization techniques: automated exposure control; mA and/or kV adjustment per patient size (includes targeted exams where dose is matched to clinical indication); or iterative reconstruction. 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 Mild atrophy and mild white matter chronic microvascular changes are noted. No hemorrhage or evidence of acute infarction. Cerebral ventricles: No ventriculomegaly. Paranasal sinuses: A small retention cyst is present in the right maxillary sinus Mastoid air cells: Visualized mastoid air cells are well aerated. Bones/joints: Unremarkable. No acute fracture. Soft tissues: Unremarkable. CT/CT head wo con* [id number] IMPRESSION: No acute intracranial abnormality.
--- NOTE | 2021-10-29 16:56 | XRR_ITS ---
PROCEDURE INFORMATION: Exam: XR Chest Exam date and time: 10/29/2021 5:11 PM Age: 86 years old Clinical indication: Other: Syncope TECHNIQUE: Imaging protocol: XR of the chest. Views: 1 view. COMPARISON: CT chest [facility] [id number] 10/22/2021 9:48 AM FINDINGS: Lungs: The lung opacities have nearly completely resolved. However, faint bilateral ground-glass opacities are again seen. No airspace consolidation is detected. Pleural spaces: Unremarkable. No pleural effusion. No pneumothorax. Heart/Mediastinum: Unremarkable. No cardiomegaly. Bones/joints: Chronic right clavicle fracture is appreciated. No acute fracture is seen. Bilateral shoulder and thoracic spine degenerative changes are appreciated. XR/XR chest 1V portable [id number] IMPRESSION: Interval improvement of the ground-glass lung opacities
--- NOTE | 2021-10-29 16:57 | ECG_ITS ---
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 Measurements Intervals [place] Rate: 56 P: -63 IA: 219 QRS: -15 QRSD: 110 T: 13 QT: 425 QTc: 412 Interpretive Statements SINUS BRADYCARDIA WITH FIRST DEGREE AV BLOCK POSSIBLE ANTERIOR MYOCARDIAL INFARCTION , OF INDETERMINATE AGE [30 ms Q WAVE IN V3/V4, OR R < 0.2 mV IN V4] Compared to ECG 10/28/2021 07:54:06 Sinus rhythm no longer present Myocardial infarct finding still present Electronically Signed On 10-29-2021 22:13:27 CDT by Melo Drew M.D. [id number]
[2021-10-29 17:40] VITALS: BP 183/68; PULSE 58; RESP 16; O2SAT 97
[2021-10-29 17:41] LABS: Basophils % 0.5 %; Eosinophils # 0.2 10^3/uL (0.0-0.8); Hematocrit 40.7 % (42.0-52.0); Lymphocytes # 0.6 10^3/uL (0.8-4.8); Lymphocytes % 10.1 %; Mean Corpuscular HGB Conc 31.9 g/dL (30.0-36.0); Mean Corpuscular Hemoglobin 28.4 pg (28.0-34.0); Mean Corpuscular Volume 88.9 fl (80-94); Mean Platelet Volume 10.9 fL (7.4-10.4); Monocytes # 0.7 10^3/uL (0.2-0.9); Monocytes % 11.2 %; Neutrophils # 4.51 10^3/uL (1.8-7.7); Neutrophils % 74.4 %; Nucleated Red Blood Cells % 0 %; Platelet Count 163 10^3/cmm (130-400); Red Blood Count 4.58 10^6/uL (4.1-5.3); Red Cell Distribution Width 13.6 % (12.1-15.1); White Blood Count 6.1 10^3/uL (4.0-10.0)
--- NOTE | 2021-10-29 18:13 | ED_ITS ---
HPI - General Adult General: Chief complaint: Syncope Stated complaint: SYNCOPAL EPISODE Time Seen by Provider: 10/29/21 16:43 History of Present Illness: Patient is an 86-year-old male with a history of CAD, PAD, hypertension, Parkinson's disease, static hypotension who was recently discharged from the hospital today at 1055 to senior living and represented to the emergency for concerns of acute altered mental status and syncope. Per family, this happened around 12:00 when patient was sitting down in senior living when he briefly became unresponsive and out of it. Patient denies any focal weakness in the arms or legs, double vision, amaurosis fugax, slurring of speech, facial droop, or difficulty walking. Per family, this episode was positional when patient was sitting down turn towards 1 direction this happened. Per conversation with Dr. Hernandez, patient was encouraged to discontinue propranolol however family still wants patient to be on the propranolol for the tremors. Patient denies any active chest pain, shortness, palpitation, nausea/vomiting, diarrhea, melena/hematochezia or urinary complaints at this time. Onset:12pm Duration:once lasting for a minute Location:home Severity:moderate Associated symptoms: Deny chest pain, dyspnea, nausea, rash, palpitations or vomiting Review of Systems Const: Denies: fever(s) or chills Eyes: Denies: change in vision ENMT: Denies: mouth pain Card: Denies: chest pain or palpitations Resp: Denies: dyspnea or non-productive cough GI: Denies: abdominal pain, nausea, vomiting or diarrhea : Denies: dysuria Musc: Denies: extremity pain Skin/Breast: Denies: rash or new lesions Neuro: Reports: other (+syncope ); Denies: weakness in extremities Psych: Reports: other (Normal mood) [place]agar/Lymph: Denies: easy bruising PFSH ED PFSH: Medical History 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 Mother , IN HER 90'S Dementia ALZHEIMERS Social History Smoking and tobacco status: former smoker Alcohol intake: former Lives independently: Yes Housing: House Marital status: / Current occupational status: retired History of recent travel: No Physical Exam Const: COMMON NORMALS: alert HENMT: COMMON NORMALS: atraumatic HEAD & SCALP: atraumatic MOUTH: moist mucous membranes not abnormal Eye: COMMON NORMALS: EOMs intact bilaterally and conjunctivae normal CONJUNCTIVA: Yes conjunctivae normal Neck/C-Spine: COMMON NORMALS: full ROM and supple Resp: COMMON NORMALS: normal respiratory effort and clear to auscultation bilaterally AUSCULTATION: clear to auscultation bilaterally Cardio: COMMON NORMALS: regular rate RATE: regular rate GI: COMMON NORMALS: Soft to palpation and non-tender PALPATION: Yes Soft to palpation Extremity: COMMON NORMALS: full ROM Neuro: SENSORIUM/ORIENTATION: Yes alert MOTOR EXAM: No Abnormal motor strength present and Other motor observations present (no focal motor deficits) OTHER: Mental status? Awake, alert, and oriented to self, year, month, location, and situation.? Following simple axial and appendicular commands.? Has appropriate fund of knowledge, comprehension, and insight.? Able to recall and understands pertinent aspects of medical history and current treatment status.? ? Language? Speech is fluent without word-finding difficulties.? Intact naming, expression, candy feeder, and repetition.? ? Cranial nerves? 2,3,4,6: PERRL, EOMI with no nystagmus. 5: Intact sensation to light touch, symmetric? 7: Smile symmetrical, no facial droop.? 8: Hearing grossly intact.? 9,10: Normal palate movement.? 11: Normal strength in trapezius bilaterally 12: Tongue protrudes midline.? ? Motor examination? Normal bulk & tone. Strength as follows (R/L): Delts (5/5), Biceps (5/5), Triceps (5/5), Wrist ext (5/5), hip flexors (5/5), plantarflexors (5/5), dorsiflexors (5/5). Sensation? Light Touch: Grossly intact and equal in upper and lower extremities bilaterally? Romberg: Negative.? Distal joint position sense intact ? Coordination? Keieyc-lv-zpim-finger movements intact without dysmetria or past-pointing.? Rapid fingertaps: preserved amplitude without decriment.? No tremor, myoclonus or truncal ataxia.? ? Gait/stance? Unable to assess gait this patient does not have a walker. Patient was able to ambulate earlier after the episode without difficulty. Psych: COMMON NORMALS: speech normal SPEECH: Yes normal speech MOOD & AFFECT: Yes euthymic mood Course Vital Signs: Vital signs: Vital Signs Temperature 97.6 F 10/29/21 16:46 Pulse Rate 61 10/29/21 21:23 Respiratory Rate 18 10/29/21 21:23 Blood Pressure 194/76 10/29/21 21:23 Pulse Oximetry 96 10/29/21 21:23 MDM - General Adult Medical Decision Making 86-year-old male with history of Parkinson's disease, PAD, hypertension, TIA presented to the emergency room for evaluation of acute syncope around 12:00. On physical exam, neuro exam is intact other than gait assessment, we are unable to do. Troponin x2 similar with delta < 5. CT brain is negative for any acute finding. EKG is nonischemic. While patient was in the emergency room, family has noticed multiple episodes the patient became altered for a few seconds. Patient's blood pressure remained stable during this time. I discussed with Dr. Suero who tells me that the only thing the family has not discontinue was propranolol for patient's severe Parkinson tremors. I have offered patient admission and family initially agreeded. However, when family spoke with Dr. Kenyon at bedside and they then told him they would like to leave against medical advice at this time. Family electing to leave AMA. Family counseled regarding risks of leaving including severe morbidity, brain , hypoxia, arrythmia, , chest pain, or any other unwanted consequences of leaving against medical advice today. Patient verbalizes understanding of the risks and still wishes to leave AMA. Signed AMA paperwork. Family advised that patient is welcome to return at any time. Was instructed that patient may come back if symptoms continue to persist and that emergent adverse conditions have not fully been ruled out. Disposition: AMA Lab Data : 10/29/21 17:30 10/29/21 17:30 Radiology Impressions Chest X-Ray 10/29/21 16:56 IMPRESSION: Interval improvement of the ground-glass lung opacities Head CT 10/29/21 16:56 IMPRESSION: No acute intracranial abnormality. Laboratory Results WBC 6.1 10^3/uL (4.0-10.0) 10/29/21 17:30 RBC 4.58 10^6/uL (4.1-5.3) 10/29/21 17:30 Hgb 13.0 g/dL (11.7-16.6) 10/29/21 17: Hct 40.7 % (42.0-52.0) L 10/29/21: MCV 88.9 fl (80-94) 10/29/21: MCH 28.4 pg (28.0-34.0) 10/29/21: MCHC 31.9 g/dL (30.0-36.0) 10/29/21: RDW 13.6 % (12.1-15.1) 10/29/21 17: Plt Count 163 10^3/cmm (130-400) 10/29/21: MPV 10.9 fL (7.4-10.4) H 10/29/21: Neut % (Auto) 74.4 % 10/29/21 17: Lymph % (Auto) 10.1 % 10/29/21: [place] % (Auto) 11.2 % 10/29/21: Eos % (Auto) 3.0 % 10/29/21: Baso % (Auto) 0.5 % 10/29/21 17:30 Neut # (Auto) 4.51 10^3/uL (1.8-7.7) 10/29/21: Lymph # (Auto) 0.6 10^3/uL (0.8-4.8) L 10/29/21: [place] # (Auto) 0.7 10^3/uL (0.2-0.9) 10/29/21 17: Eos # (Auto) 0.2 10^3/uL (0.0-0.8) 10/29/21 17:30 Baso # (Auto) 0.0 10^3/uL (0.0-0.1) 10/29/21 17:30 Nucleated RBC % (auto) 0 % 10/29/21 17:30 Nucleated RBCs # 0.0 /100WBC 10/29/21 17:30 Sodium 133 mmol/L (136-145) L 10/29/21 17:30 Potassium 4.7 mmol/L (3.5-5.1) 10/29/21 17:30 Chloride 93 mmol/L (98-107) L 10/29/21 17:30 Carbon Dioxide 24 mmol/L (22-29) 10/29/21 17:30 Anion Gap 20.7 (5-19) H 10/29/21 17:30 BUN 44 mg/dL (8-23) H 10/29/21 17:30 Creatinine 1.2 mg/dL (0.7-1.2) 10/29/21 17:30 GFR Calculation Not Reportable 10/29/21 17:30 Glucose 156 mg/dL (65-115) H 10/29/21 17:30 Calculated Osmolality 290 mOsm/kg (285-295) 10/29/21 17:30 Calcium 8.3 mg/dL (8.5-10.5) L 10/29/21 17:30 Troponin T Baseline 32 ng/L (0-15) H 10/29/21 17:30 Troponin T 120 Minute 27.91 ng/L (0-15) H 10/29/21 19:38 Delta Troponin T -4.09 ABS# (0-10) L 10/29/21 19:38 Discharge Plan Discharge Patient Disposition: Left Against Medical Advice Clinical Impression: Syncope Condition: Stable Prescriptions: No Action aspirin 325 mg tablet 325 mg PO DAILY Qty: 90 3RF clonazepam 0.5 mg tablet 0.5 mg PO TID 0RF ascorbic acid (vitamin C) 500 mg capsule 1,000 mg PO DAILY 0RF Probiotic Gold Acidophilus 1 billion cell capsule 1,000 mmu cells PO DAILY 0RF Rx Instructions: administer with a meal carbidopa-levodopa 25-100 mg tablet 1.5 tab PO TID 0RF cyanocobalamin (vitamin B-12) 1,000 mcg capsule 1,000 mcg PO DAILY 0RF methenamine hippurate 1 gram tablet See Rx Instructions .ROUTE .COMPLEX Qty: 60 6RF Dose Instruction: TAKE ONE TABLET BY MOUTH TWICE DAILY - TAKE VITAMIN C 1,000 MG WITH EACH DOSE OF METHENAMINE Rx Instructions: TAKE ONE TABLET BY MOUTH ONCE DAILY - TAKE VITAMIN C 1,000 MG WITH EACH DOSE OF METHENAMINE propranolol 80 mg tablet 160 mg PO BID Qty: 180 0RF losartan 50 mg Tablet 25 mg PO Q12H 30 Days Qty: 30 0RF primidone 50 mg Tablet 150 mg PO TID 30 Days Qty: 270 0RF polyethylene glycol 3350 17 gram Powder In Packet 17 g PO DAILY PRN (Reason: constipation) 30 Days Qty: 30 0RF hydralazine 25 mg Tablet 25 mg PO TID 30 Days Qty: 90 0RF propranolol 40 mg Tablet 120 mg PO BID 30 Days Qty: 180 0RF pantoprazole 40 mg Tablet,Delayed Release (Dr/Ec) 40 mg PO DAILY 30 Days Qty: 30 0RF pyridoxine (vitamin B6) 50 mg Tablet 50 mg PO DAILY 30 Days Qty: 30 0RF fluticasone propionate 50 mcg/actuation [place],Suspension 1 spray nasal BID PRN (Reason: congestion) 30 Days 0RF finasteride 5 mg Tablet 5 mg PO BEDTIME 30 Days Qty: 30 0RF amoxicillin-pot clavulanate 875-125 mg Tablet 1 tab PO BID 3 Days Qty: 6 0RF Novolog Flexpen U-100 Insulin 100 unit/mL (3 mL) insulin pen See Rx Instructions .ROUTE .COMPLEX Qty: 15 0RF Rx Instructions: Inject, subcut, 3 times daily, after meals, based on sliding scale provided potassium chloride 10 mEq capsule, extended release 10 meq PO DAILY Qty: 0 0RF furosemide 20 mg tablet 20 mg PO DAILY Qty: 0 0RF Referrals: Carlos Marques MD [Primary Care Provider] - Coding Level of Care Code ED Parakeet Raiser for Chg 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
[2021-10-29 18:28] LABS: Troponin(5th) Baseline 32 ng/L (0-15)
[2021-10-29] MEDS: sodium chloride 0.9% 500 ML 999 ML IV (18:45)
[2021-10-29 18:53] LABS: Blood Urea Nitrogen 44 mg/dL (8-23); Calcium 8.3 mg/dL (8.5-10.5); Carbon Dioxide 24 mmol/L (22-29); Chloride 93 mmol/L (98-107); Glucose 156 mg/dL (65-115); Osmolality Calculated 290 mOsm/kg (285-295); Sodium 133 mmol/L (136-145)
[2021-10-29 18:55] LABS: Anion Gap 20.7 (5-19); Potassium 4.7 mmol/L (3.5-5.1)
--- NOTE | 2021-10-29 19:33 | P.HP_ITS ---
Providers/Chief Complaint Primary Care Provider: Carlos Marques MD Chief Complaint: SYNCOPAL EPISODE History of Present Illness Arias Karimi is a 86 year old male Medications/Allergies Home Medications Medication Instructions Recorded Confirmed Last Taken Type clonazepam 0.5 mg tablet 0.5 mg PO TID 08/14/19 10/21/21 10/21/21 History Lactobacillus acidophilus 1 1,000 mmu cells PO DAILY 05/09/20 10/21/21 10/21/21 History billion cell capsule (Probiotic Gold Acidophilus) ascorbic acid (vitamin C) 500 mg 1,000 mg PO DAILY cap 11/07/20 10/21/21 10/21/21 History capsule aspirin 325 mg tablet 325 mg PO DAILY #90 tab 01/02/21 10/21/21 10/21/21 Rx carbidopa 25 mg-levodopa 100 mg 1.5 tab PO TID tab 01/02/21 10/21/21 10/21/21 H istory tablet methenamine hippurate 1 gram tablet See Rx Instructions .ROUTE 08/21/21 10/21/21 10/21/21 Rx .COMPLEX #60 tab cyanocobalamin (vitamin B-12) 1,000 mcg PO DAILY 10/02/21 10/21/21 10/21/21 History 1,000 mcg capsule propranolol 80 mg tablet 160 mg PO BID #180 tab 10/24/21 Unknown Rx amoxicillin 875 mg-potassium 1 tab PO BID 3 Days #6 tab 10/29/21 Unknown Rx clavulanate 125 mg tablet finasteride 5 mg tablet 5 mg PO BEDTIME 30 Days #30 tab 10/29/21 Unknown Rx fluticasone propionate 50 1 spray NASAL BID PRN 30 Days g 10/29/21 Unknown Rx mcg/actuation nasal spray,suspension furosemide 20 mg tablet 20 mg PO DAILY #0 tab 10/29/21 10/21/21 Unknown Rx hydralazine 25 mg tablet 25 mg PO TID 30 Days #90 tab 10/29/21 Unknown Rx insulin aspart U-100 100 unit/mL See Rx Instructions .ROUTE 10/29/21 Unknown Rx (3 mL) subcutaneous pen (Novolog .COMPLEX #15 ml Flexpen U-100 Insulin aspart) losartan 50 mg tablet 25 mg PO Q12H 30 Days #30 tab 10/29/21 Unknown Rx pantoprazole 40 mg tablet,delayed 40 mg PO DAILY 30 Days #30 tab 10/29/21 Unknown Rx release polyethylene glycol 3350 17 gram 17 g PO DAILY PRN 30 Days #30 ea 10/29/21 Unknown Rx oral powder packet potassium chloride 10 mEq 10 meq PO DAILY #0 cap 10/29/21 10/21/21 Unknown Rx capsule,extended release primidone 50 mg tablet 150 mg PO TID 30 Days #270 tab 10/29/21 Unknown Rx propranolol 40 mg tablet 120 mg PO BID 30 Days #180 tab 10/29/21 Unknown Rx pyridoxine (vitamin B6) 50 mg 50 mg PO DAILY 30 Days #30 tab 10/29/21 Unknown Rx tablet Allergies Allergy/AdvReac Type Severity Reaction Status Date / Time hydrochlorothiazide Allergy UNKNOWN Verified 10/21/21 12:40 iodine Allergy UNKNOWN Verified 10/21/21 12:40 lisinopril Allergy UNKNOWN Verified 10/21/21 12:40 shellfish derived Allergy Unresponsiv Verified 10/21/21 18:06 e PFSH Acute PFSH: Medical History 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 Mother , IN HER 90'S Dementia ALZHEIMERS Social History Smoking and tobacco status: former smoker Alcohol intake: former Lives independently: Yes Housing: House Marital status: / Current occupational status: retired History of recent travel: No Vitals/I&O/Wt Last Vital Signs Temp 97.6 F 10/29/21 16:46 Pulse 58 L 10/29/21 17:40 Resp 16 10/29/21 17:40 BP 183/68 10/29/21 17:40 Pulse Ox 97 10/29/21 17:40 Weight last 48 hrs Weight 117.934 kg Data : 10/29/21 17:30 04/20/22 17:30 A&P Assessment and plan Plan ReCurrent syncopal events He has history of orthostatic hypotension, considering side effect of propranolol off sedation and recurrent falls I will discontinue propanolol Add pyridostigmine for orthostatic hypotension For bradycardia he might need pacemaker evaluation Overnight telemetry monitoring Serial troponin and EKG Coding Level of Care Code Acute Hoop Rolls Operator for Matt Quispe
[2021-10-29 20:08] LABS: Troponin 5 2HR 27.91 ng/L (0-15)
[2021-10-29 20:12] LABS: Troponin 5 2HR Delta -4.09 ABS# (0-10)
--- NOTE | 2021-10-29 20:48 | PM.MISC ---
Miscellaneous Note Note: ER physician called me for consultation, family is upset that Mr. Karimi spent 1 week in the hospital and he is still experiencing symptoms, they are very upset with the discharge to the [place] [facility] today, ER physician asked me to come evaluate the patient and give my recommendations I examined the patient took history and did physical exam Patient was being transferred to his room at the [place] [facility] when family noted noticed that he was not right, a bystander noticed mild slurring of speech, when asked the patient about his symptoms he stated that his head was hurting around the taoism, he has been hearing ringing sensation in both ears, and he was dizzy while he was sitting in the wheelchair, he did not complain of chest pain, shortness of breath, nausea, vomiting diaphoresis or syncopal event. He described his dizziness as surroundings were spinning On my physical exam Patient was laying supine comfortably without active distress Awake and alert Mild resting tremors Able to follow commands Emotionally labile Saturating well on room air Heart rate fluctuated between 58-62, sinus Patient does seem to have congestive heart failure with fluid overload signs 2+ pitting edema of lower extremities Abdomen is distended especially on the right side Abdomen is soft nontender bowel sounds present Patient is able to move all of his extremities Good handgrips, mild left-sided deviation of angle of mouth Nonlabored breathing Saturating well on room air Patient has positive leg raise test especially in the right side He is able to keep his left leg in the air for about 5 seconds Assessment and plan Patient was admitted recently for management and evaluation of exertional shortness of breath, he was diagnosed with pulmonary hypertension, recent chest x-ray showing resolution of groundglass opacities, he is currently saturating well on room air On clinical exam he has fluid overloaded state Positive leg raise test Bradycardia Recommendation I had a long discussion with the patient and his son at the bedside My recommendations are as follows -Admit to [facility] -We will monitor his heart rate on telemetry -He might need pacemaker evaluation, if he gets admitted will consult capsule inspector as there was one episode of nonsustained V. tach on previous admission and now he is bradycardic, concern for sick sinus syndrome -Positive leg raise test would further require work-up of compression fracture lumbosacral area -For polypharmacy he needs adjustment in his medications, he does take propanolol for long time which can cause bradycardia and sedation -I did ask his son to read up on Parkinson's on/off phenomenon -For orthostatic hypotension he might benefit from pyridostigmine -For hypertension continue hydralazine, amlodipine might need to be changed because of edema of legs Despite lengthy discussion patient and his family decided to take him to the [facility] on their own, I reinforced the fact that we do have capsule inspector in the hospital who can evaluate him in the morning for pacemaker evaluation for sick sinus syndrome concern and further adjustment of medication would be made if he gets admitted, patient and his family is very adamant and wants to avoid another admission to the hospital after staying for about a week. I have conveyed my recommendations to the ER physician, updated him, updated ER lockstitch front edge tape sewer as well
[2021-10-29 21:23] VITALS: BP 194/76; PULSE 61; RESP 18; O2SAT 96
== END 2021-10-29 21:32 | disposition left against medical advice (07) ==
PROVIDERS: Emergency Provider Emergency Medicine; PCP Family Medicine
DX: R55 Syncope and collapse (principal); I25.10 Atherosclerotic heart disease of native coronary artery without angina pectoris; I73.9 Peripheral vascular disease, unspecified; I10 Essential (primary) hypertension; G20 Parkinson's disease; Z87.891 Personal history of nicotine dependence; Z53.29 Procedure and treatment not carried out because of patient's decision for other reasons; Z79.82 Long term (current) use of aspirin; E11.9 Type 2 diabetes mellitus without complications; Z79.4 Long term (current) use of insulin
CPT/HCPCS: 70450; 71045; 80048; 84484; 85025; 93005; 99283; J7040

== ENCOUNTER 2022-01-22 09:20 | Outpatient (CLI) | payer MEDICARE, SELFPAY ==
--- NOTE | 2022-01-22 10:03 | XR_ITS ---
WS: [email or web address] Pelvis, AP view, 01/22/2022 Clinical Data: ACUTE BACK PAIN Comparison: None. Findings: No fractures or dislocations are seen. The SI joints and pubic symphysis are intact. The soft tissues are not remarkable. The hips show no fractures, erosion, sclerosis or narrowing. There are bilateral acetabular lips. XR/XR pelvis 1-2V* [id number] Impression: Moderate osteoarthritis of both hips.
--- NOTE | 2022-01-22 10:03 | XR_ITS ---
WS: [email or web address] Lumbar spine, 3 views, 01/22/2022 Clinical Data: ACUTE BACK PAIN Comparison: None. Findings: No compression fractures or subluxation is seen. There is degenerative disc narrowing at L3-L4, L4-L5 and L5-S1. Anterior osteophytes are prominent at L3-S1. The transverse processes and SI joints are n ormal. The wall of the abdominal aorta shows calcification but no aneurysm. There is a large amount of fecal material and air within the colon. XR/XR lumbar spine 2-3V* [id number] Impression: 1. Degenerative disc narrowing L3-L4, L4-L5 and L5-S1. 2. Osteoarthritis L3-S1.
--- NOTE | 2022-01-22 10:03 | XR_ITS ---
WS: [email or web address] Sacroiliac joints, 3 views, 01/22/2022 Clinical Data: ACUTE BACK PAIN Comparison: None. Findings: The SI joints are normal in width. No erosion, sclerosis or destruction is seen. There are no fractur es or dislocations. The adjacent visualized pelvis and hips show osteoarthritis of both hips. XR/XR sacroiliac jts m 3V [id number] Impression: Negative SI joints.
== END 2022-01-22 09:21 | disposition home or self-care (01) ==
PROVIDERS: PCP Family Medicine; Visit Provider Family Medicine
DX: M54.9 Dorsalgia, unspecified (principal); M51.36 Other intervertebral disc degeneration, lumbar region; M51.37 Other intervertebral disc degeneration, lumbosacral region; M47.816 Spondylosis without myelopathy or radiculopathy, lumbar region; M47.817 Spondylosis without myelopathy or radiculopathy, lumbosacral region; M16.0 Bilateral primary osteoarthritis of hip
CPT/HCPCS: 72100; 72170; 72202

== ENCOUNTER → 2022-02-25 10:09 | Outpatient (BNVA) | payer MEDICARE, SELFPAY | PROVIDERS: PCP Family Medicine; Visit Provider Family Medicine | DX: R55 Syncope and collapse (principal); G25.0 Essential tremor; I95.1 Orthostatic hypotension; I10 Essential (primary) hypertension; E11.9 Type 2 diabetes mellitus without complications | CPT/HCPCS: 80053; 83036; 84443; 85025; 86140 ==

== ENCOUNTER → 2022-06-24 08:59 | Outpatient (BNVA) | payer MEDICARE, SELFPAY | PROVIDERS: PCP Family Medicine; Visit Provider Family Medicine | DX: G20 Parkinson's disease (principal); I10 Essential (primary) hypertension; E11.9 Type 2 diabetes mellitus without complications; I95.1 Orthostatic hypotension; I27.20 Pulmonary hypertension, unspecified | CPT/HCPCS: 80053; 80061; 83036; 85025 ==

== ENCOUNTER 2022-07-15 11:29 | Outpatient (CLI) | payer MEDICARE, SELFPAY ==
--- NOTE | 2022-07-15 11:39 | XRR_ITS ---
PROCEDURE INFORMATION: Exam: XR Chest Exam date and time: 07/15/2022 11:43 AM Age: 86 years old Clinical indication: Cough TECHNIQUE: Imaging protocol: Radiologic exam of the chest. Views: 2 views. COMPARISON: CR XR chest 1V portable [id number] 10/29/2021 5:11 PM FINDINGS: Lungs: Unremarkable. No consolidation. Pleural spaces: Unremarkable. No pleural effusion. No pneumothorax. Heart/Mediastinum: Unremarkable. No cardiomegaly. Bones/joints: Unremarkable. XR/XR chest 2V* [id number] IMPRESSION: No acute findings.
== END 2022-07-15 11:30 | disposition home or self-care (01) ==
LOC: RAD 11:33
PROVIDERS: PCP Family Medicine; Visit Provider Family Medicine
DX: R05.9 Cough, unspecified (principal)
CPT/HCPCS: 71046; 88304

== ENCOUNTER → 2022-09-29 09:29 | Outpatient (BNVA) | payer MEDICARE, SELFPAY | PROVIDERS: PCP Family Medicine; Visit Provider Family Medicine | DX: E11.9 Type 2 diabetes mellitus without complications (principal); I10 Essential (primary) hypertension; G20 Parkinson's disease | CPT/HCPCS: 80053; 80061; 83036; 85025 ==

== ENCOUNTER → 2023-04-07 08:37 | Outpatient (BNVA) | payer MEDICARE, SELFPAY | PROVIDERS: PCP Family Medicine; Visit Provider Family Medicine | DX: E11.9 Type 2 diabetes mellitus without complications (principal); G25.0 Essential tremor; I10 Essential (primary) hypertension | CPT/HCPCS: 80053; 80061; 83036; 85025 ==

== ENCOUNTER → 2023-06-15 07:33 | Outpatient (BNVA) | payer MEDICARE, SELFPAY | PROVIDERS: PCP Family Medicine; Visit Provider Family Medicine | DX: I50.9 Heart failure, unspecified (principal); I10 Essential (primary) hypertension | CPT/HCPCS: 80048; 83880 ==

== ENCOUNTER → 2023-06-23 08:53 | Outpatient (BNVA) | payer MEDICARE, SELFPAY | PROVIDERS: PCP Family Medicine; Visit Provider Family Medicine | DX: I50.9 Heart failure, unspecified (principal); I10 Essential (primary) hypertension | CPT/HCPCS: 80048; 83880 ==

== ENCOUNTER → 2023-07-13 08:06 | Outpatient (BNVA) | payer MEDICARE, SELFPAY | PROVIDERS: PCP Family Medicine; Visit Provider Family Medicine | DX: I10 Essential (primary) hypertension (principal); I50.9 Heart failure, unspecified; E11.9 Type 2 diabetes mellitus without complications | CPT/HCPCS: 80053; 80061; 83036; 83880; 85025 ==

== ENCOUNTER → 2023-10-28 07:58 | Outpatient (BNVA) | payer MEDICARE, SELFPAY | PROVIDERS: PCP Family Medicine; Visit Provider Family Medicine | DX: I10 Essential (primary) hypertension (principal); I50.9 Heart failure, unspecified; E11.9 Type 2 diabetes mellitus without complications | CPT/HCPCS: 80053; 83036; 83880; 85025 ==

== ENCOUNTER → 2024-02-09 08:51 | Outpatient (BNVA) | payer MEDICARE, SELFPAY | PROVIDERS: PCP Family Medicine; Visit Provider Family Medicine | DX: I10 Essential (primary) hypertension (principal); I50.9 Heart failure, unspecified; E11.9 Type 2 diabetes mellitus without complications | CPT/HCPCS: 80053; 80061; 83036; 83880 ==

== ENCOUNTER → 2024-05-04 09:24 | Outpatient (BNVA) | payer MEDICARE, SELFPAY | PROVIDERS: PCP Family Medicine; Visit Provider Family Medicine | DX: I10 Essential (primary) hypertension (principal); I50.9 Heart failure, unspecified; E11.9 Type 2 diabetes mellitus without complications; G20.A1 Parkinson's disease without dyskinesia, without mention of fluctuations | CPT/HCPCS: 80053; 80061; 83036; 83880; 84443; 85025 ==